=== PATIENT | female | born 1965 | race Caucasian/White ===

== ENCOUNTER 2020-03-30 15:46 | Outpatient (CLI) | payer OTHER, SELFPAY ==
--- NOTE | ~2020-03-30 | XR_ITS ---
EXAMINATION: XR knee LT 3V DATE: 03/30/2020 16:52 INDICATION: Left knee pain post fall on stairs TECHNIQUE: Anteroposterior, lateral and sunrise views of the left knee were obtained COMPARISON: None. FINDINGS: Alignment is normal. No fracture. Spaces appear normal. No joint effusion/layering lipohemarthrosis. Small enthesophyte at the patellar insertion of the distal quadriceps tendon. Soft tissues are unrem arkable. IMPRESSION: 1. No left knee joint effusion or acute osseous abnormality. Reviewed, dictated and finalized at location A.
--- NOTE | ~2020-03-30 | CT_ITS ---
EXAMINATION: CT brain wo con INDICATION: Head injury COMPARISON: 04/02/2017 TECHNIQUE: Standard unenhanced head CT. The dose-length product (DLP) was 605.33 mGy-cm. The mA was a djusted according to patient size. Iterative reconstruction technique was employed. FINDINGS: There is no intracranial hemorrhage, acute infarction, or abnormal mass lesion. The ventric les are normal. There is no abnormal mass effect or midline shift. The agarwal-white matter differentiat ion is normal. The basal cisterns are patent. The orbits are normal. There is deformity and partial o pacification of the right maxillary sinus. IMPRESSION: 1. No acute intracranial abnormality. Reviewed, dictated and finalized at location A.
--- NOTE | ~2020-03-30 | XR_ITS ---
EXAMINATION:XR cervical spine 4-5V, XR lumbar spine 2-3V, XR thoracic spine 3V DATE: 03/30/2020 16:52 EXAMINATION: XR cervical spine 4-5V, XR lumbar spine 2-3V, XR thoracic spine 3V DATE: 03/30/2020 16:52 INDICATION: Neck pain TECHNIQUE: 1. AP, lateral, lateral swimmers and odontoid views of the cervical spine were obtained. 2. AP, lateral and lateral swimmers views of the thoracic spine were obtained. 3. AP, lateral and coned-down lateral lumbosacral views of the lumbar spine were obtained. COMPARISON: None FINDINGS: Cervical spine: Alignment is normal. Dens is intact. Vertebral body heights are normal. Disc spaces are normal. No fr acture identified. Multilevel moderate cervical facet osteoarthritis most prominent at C2-C3, C3-C4 a nd C7-T1. Prevertebral soft tissues are normal. Thoracic spine: Alignment is normal. Vertebral body heights are normal. Multilevel mild to moderate disc height loss with small endplate osteophytes throughout the thoracic spine. No fracture identified. Paravertebral soft tissues and visualized lungs are unremarkable. Post cystectomy clips in the right upper quadrant . Lumbar spine: 3 mm anterolisthesis L5 on S1. Alignment is otherwise normal. Vertebral body heights are normal. Disc heights are normal with minimal degenerative endplate changes. And mild to moderate lower lumbar fac et osteoarthritis. No fracture identified. Sacrum and bilateral sacroiliac joints are unremarkable. M ild bilateral hip osteoarthritis. IMPRESSION: 1. Mild to moderate cervical, thoracic and lumbar spondylosis. No evident acute osseous abnormality. Reviewed, dictated and finalized at location A. IMPRESSION: 1. Mild to moderate cervical, thoracic and lumbar spondylosis. No evident acute osseous abnormality. IMPRESSION: 1. Mild to moderate cervical, thoracic and lumbar spondylosis. No evident acute osseous abnormality.
--- NOTE | ~2020-03-30 | XR_ITS ---
EXAMINATION: XR knee RT 3V DATE: 03/30/2020 16:52 INDICATION: Right knee pain post fall on stairs TECHNIQUE: AP, lateral and sunrise views of the right knee were obtained COMPARISON: None. FINDINGS: Alignment is normal. No fracture. Joint spaces appear normal. No joint effusion/layering lipohemarth rosis. Small enthesophyte at the patellar insertion of the distal quadriceps tendon. Soft tissues are unremarkable. IMPRESSION: 1. No right knee joint effusion or acute osseous abnormality. Reviewed, dictated and finalized at location A.
--- NOTE | ~2020-03-30 | XR_ITS ---
EXAMINATION: XR shoulder LT min 2V DATE: 03/30/2020 16:51 INDICATION: Left shoulder pain post fall on stairs TECHNIQUE: AP internally and externally rotated, AP oblique externally rotated and transscapular Y vi ews of the left shoulder were obtained. COMPARISON: None FINDINGS: Normal alignment. No fracture. Glenohumeral joint is normal. Acromioclavicular joint is normal. Smal l dystrophic calcification in the soft tissues near the superior facet of the greater tuberosity cons istent with supraspinatus calcific tendinitis. Soft tissues are otherwise unremarkable. Calcified nod ule in the left lung consistent with old granulomatous disease. IMPRESSION: 1. No acute osseous abnormality at the left shoulder. 2. Likely supraspinatus calcific tendinitis. Reviewed, dictated and finalized at location A.
== END 2020-03-30 15:47 | disposition home or self-care (01) ==
PROVIDERS: PCP Family Medicine; Visit Provider Physician Assistant
DX: G44.311 Acute post-traumatic headache, intractable (principal); M47.892 Other spondylosis, cervical region; M47.894 Other spondylosis, thoracic region; M47.896 Other spondylosis, lumbar region; W10.8XXA Fall (on) (from) other stairs and steps, initial encounter
CPT/HCPCS: 70450; 72050; 72072; 72100; 73030; 73562

== ENCOUNTER 2020-09-27 14:08 | Outpatient (CLI) | payer OTHER, SELFPAY ==
--- NOTE | 2020-09-27 14:27 | ECG_ITS ---
Measurements Intervals [place] Rate: 78 P: 61 [place]: 157 QRS: 58 QRSD: 89 T: 56 QT: 390 QTc: 445 Interpretive Statements SINUS RHYTHM POSSIBLE LEFT ATRIAL ENLARGEMENT BORDERLINE ECG Electronically Signed On 09-27-2020 14:44:25 HOUSING ASSISTANT by Hugo Campbell D.O.
== END 2020-09-27 14:09 | disposition home or self-care (01) ==
PROVIDERS: PCP Family Medicine; Visit Provider Family Medicine
DX: R00.2 Palpitations (principal); R94.31 Abnormal electrocardiogram [ECG] [EKG]
CPT/HCPCS: 93005

== ENCOUNTER → 2020-10-13 13:42 | Outpatient (CLI) | payer OTHER, SELFPAY ==
--- NOTE | ~2020-10-13 | CT_ITS ---
EXAMINATION: CT abdomen pelvis wo/w con DATE: 10/13/2020 14:38 INDICATION: Unspecified abdominal pain TECHNIQUE: Computed tomography (CT) of the abdomen and pelvis was performed without intravenous contr ast. CT of the abdomen and pelvis was then performed with a total of 130 mL Omnipaque 350 intravenous contrast using a double-bolus technique for simultaneous opacification of the renal parenchyma and r enal collecting system. The dose-length product (DLP) was 1302.51 mGy-cm. Automated exposure control and iterative reconstruction technique were employed. COMPARISON: None FINDINGS: Minimal dependent atelectasis is present in the lung bases. The heart size is normal. The g allbladder is surgically absent. The liver is diffusely low in attenuation when compared with the spl een, consistent with hepatic steatosis. The spleen, pancreas, and adrenal glands are normal. There is a 4.3 cm cyst of the left kidney. No suspicious renal or urothelial lesion is identified. No stones are identified in the kidneys, ureters, or bladder. There is no hydronephrosis or hydroureter. No pat hologically enlarged abdominal or pelvic lymph nodes are identified. There is calcified atheroscleros is of the aorta and many of the other arteries. There is no free intraperitoneal gas or evidence of b owel obstruction. There is a questionable stricture of the proximal ascending colon located approxima tely 5 cm above the ileocecal valve. The appendix is normal. There are bilateral L5 pars defects with grade 1 anterolisthesis of L5 on S1. IMPRESSION: 1. Possible stricture of the proximal ascending colon. Recommend correlation with colonoscopy or colo noscopy history. 2. No urolithiasis, suspicious urothelial or renal lesion, hydronephrosis, or hydroureter. Reviewed, dictated and finalized at location A. MANAGER IMPRESSION: 1. Possible stricture of the proximal ascending colon. Recommend correlation wi colonoscopy or colonoscopy history. 2. No urolithiasis, suspicious urothelial or renal lesion, hydronephrosis, or h ydroureter.
[2020-10-13 14:10] LABS: Estimated Glomerular Filt Rate > 60
== END ==
PROVIDERS: PCP Family Medicine; Visit Provider Family Medicine
DX: R10.9 Unspecified abdominal pain (principal); N28.1 Cyst of kidney, acquired; Z90.49 Acquired absence of other specified parts of digestive tract
CPT/HCPCS: 74178; Q9967

== ENCOUNTER 2020-11-05 00:33 | Outpatient (CLI) | payer OTHER, SELFPAY ==
[2020-11-05 17:38] LABS: SARS-CoV-2 RNA PCR Negative
== END 2020-11-05 00:34 | disposition home or self-care (01) ==
LOC: ANHCOVIDDT 00:33
PROVIDERS: PCP Family Medicine; Visit Provider Internal Medicine Gastroenterology
DX: Z01.812 Encounter for preprocedural laboratory examination (principal); Z20.822 Contact with and (suspected) exposure to COVID-19
CPT/HCPCS: C9803; U0003; U0005

== ENCOUNTER 2020-11-08 02:05 | Day surgery (SDC) | payer OTHER, SELFPAY ==
[2020-11-01 09:47] VITALS: BMI 27.3
[2020-11-08 09:18] VITALS: BP 112/72; PULSE 105; RESP 20; TEMP 36.2; O2SAT 99; BMI 25.7
--- NOTE | 2020-11-08 09:23 | WPDANESEPPF ---
Anes - Initial Pre Proc Eval Procedure: Operation Date: 11/08/20 10:30 Proposed Procedures p Colonoscopy - Eleazar Angel MD Date/Time: 11/08/20 09:23 Surgeon: Eleazar Angel MD Pre Op Diagnosis: Abdominal Pain Patient Data Age: 55 Gender: F Height: 1.6 m Weight: 65.9 kg Last Vital Signs Temp 36.2 C L 11/08/20 09:18 Pulse 105 H 11/08/20 09:18 Resp 20 11/08/20 09:18 BP 112/72 11/08/20 09:18 Pulse Ox 99 11/08/20 09:18 Allergies Allergy/AdvReac Type Severity Reaction Status Date / Time aspirin AdvReac Nausea and Verified 11/08/20 09:16 Vomiting Home Medications Medication Instructions Recorded Confirmed Type semaglutide 0.5 mg SUB-Q WEEKLY ml 12/22/19 11/08/20 History Patient hx anesthesia problems: none Family hx anesthesia problems: none PMFSH Past Medical History Medical History (Reviewed 11/01/20 @ 09:08 by Annie Elizabeth [facility]) Abdominal pain Acute non-recurrent maxillary sinusitis Chronic rhinitis Controlled diabetes mellitus type II without complication Diabetes Dyshidrotic eczema Encounter for screening for other viral diseases Exposure to COVID-19 virus Fatty liver (~10/13/20) Headache High cholesterol IBS (irritable bowel syndrome) Irritable bowel syndrome with constipation Mixed hyperlipidemia Obstructive sleep apnea of adult Palpitation Stricture of ascending colon (~10/13/20) Ureteral stone Surgical History Surgical History History of 2 sections 1995, 2000 History of cholecystectomy Family History Family History Mother Diabetes mellitus Other Acute myocardial infarction High cholesterol Father Acute myocardial infarction Grandparent Diabetes mellitus Grandparent Lung disease Social History Social History (Reviewed 11/01/20 @ 09:08 by Annie Elizabeth [facility]) Smoking packs per day: 0.5 Smoking cigarettes per day: 10.0 Years smoked: 20 Smoking pack-years: 10.00 Smoking status: Former smoker Tobacco type: cigarettes Smoking end date: 10/19/19 Alcohol intake: current Substance use: never Substance use type: does not use Living arrangements: with family Austin Julien Final PreProcedure Day of Procedure 11/08/20 09:23 Patient weight: overweight Heart: regular rate and rhythm Lungs: clear to auscultation and normal air movement Airway: Mallampati scale class II Neurological: alert and oriented Last oral intake: >/= 8 hours ASA classification: III Emergent: no Anesthetic plan: proceed Anesthesia type and monitoring: general GIVS and standard monitoring Informed Consent: The patient's anesthetic plan and its attendant risks and benefits were discussed with the patient/family/POA. Questions were solicited and answers provided to the satisfaction of the patient/family/POA.
[2020-11-08] MEDS: LACTATED RINGERS 1,000 ML 150 ML IV CONT (09:33)
[2020-11-08 09:37] LABS: Glucose Point of Care 150 (65-105)
--- NOTE | 2020-11-08 10:08 | WPDHPUPDATE1 ---
History and Physical Update Update Date/Time: 11/08/20 10:08 History and Physical has been reviewed, including an updated exam of the patient. There are NO changes in the patient's condition. Risks, benefits, and alternatives have been discussed and questions answered. Patient agrees to proceed with procedure.
[2020-11-08 10:30] VITALS: BP 113/75; PULSE 93; RESP 20; O2SAT 97
[2020-11-08 10:40] VITALS: BP 113/70; PULSE 90; RESP 16; O2SAT 99
[2020-11-08 10:50] VITALS: BP 123/72; PULSE 94; RESP 17; O2SAT 100
== END 2020-11-08 11:07 | disposition home or self-care (01) ==
PROVIDERS: PCP Family Medicine; Visit Provider Internal Medicine Gastroenterology
PROC: 0DJD8ZZ Inspection of Lower Intestinal Tract, Via Natural or Artificial Opening Endoscopic (ICD-10-PCS; CPT 45378; principal; 2020-11-08 10:30)
DX: R10.30 Lower abdominal pain, unspecified (principal); R19.7 Diarrhea, unspecified; K59.00 Constipation, unspecified; K57.30 Diverticulosis of large intestine without perforation or abscess without bleeding; K64.8 Other hemorrhoids; E11.9 Type 2 diabetes mellitus without complications; E78.2 Mixed hyperlipidemia; L30.1 Dyshidrosis [pompholyx]; K76.0 Fatty (change of) liver, not elsewhere classified; E78.00 Pure hypercholesterolemia, unspecified; K58.9 Irritable bowel syndrome, unspecified; G47.33 Obstructive sleep apnea (adult) (pediatric); Z87.891 Personal history of nicotine dependence
CPT/HCPCS: 45380; 88305; C9803; J2704; J7120; U0003; U0005

== ENCOUNTER → 2020-12-07 11:32 | Outpatient (CLI) | payer OTHER, SELFPAY ==
--- NOTE | ~2020-12-07 | MM_ITS ---
EXAMINATION: MM screening [facility] BI w [place] HISTORY: Screening mammogram TECHNIQUE: Craniocaudal and mediolateral oblique 3-D tomosynthesis images were obtained and synthetic 2-D images were generated. CAD analysis was submitted and interpreted. COMPARISON: 08/26/2019, 08/23/2018, 01/23/2017 BREAST PARENCHYMAL COMPOSITION: The breasts are heterogeneously dense, which may obscure small masses . FINDINGS: There is no evidence of suspicious mass, calcification, or architectural distortion to sugg est malignancy in either breast. There has been no suspicious interval change. IMPRESSION: 1. No mammographic evidence of malignancy. 2. Recommend routine screening mammography in one year. BI-RADS Category 1: Negative Reviewed, dictated and finalized at location A. [address]
== END ==
PROVIDERS: PCP Family Medicine; Visit Provider Family Medicine
DX: Z12.31 Encounter for screening mammogram for malignant neoplasm of breast (principal)
CPT/HCPCS: 77063; 77067

== ENCOUNTER 2021-12-06 12:27 | Emergency (ER) | payer OTHER, SELFPAY ==
--- NOTE | ~2021-12-06 | CT_ITS ---
EXAMINATION: CT abdomen pelvis wo con EXAM DATE: 12/06/2021 13:58 INDICATION: Left flank pain. TECHNIQUE: Spiral CT of the abdomen and pelvis was performed without contrast. Axial, coronal and sag ittal images were reviewed. The dose-length product (DLP) for this examination was 176.06 mGy-cm. T he exposure was tailored according to patient size (auto mA exposure control), and iterative reconstr uction (ASIR) was used as additional dose reduction technique. Comparison is made to prior examinatio n from 10/13/2020. FINDINGS: There is a left UPJ 3 mm stone, mild left-sided obstructive nephropathy. No other ureteral stones. The uterus is unremarkable. The bladder is unremarkable. The liver, spleen, adrenal gland s and pancreas are unremarkable. There are cholecystectomy clips. There is no retroperitoneal or pe lvic lymphadenopathy. The appendix is normal. There is mild scattered colonic diverticulosis. There is no adjacent inflamm atory change to suggest diverticulitis. The stomach and small bowel are unremarkable. There is expec charissa amount of colonic stool. No free intraperitoneal gas. The heart is normal in size. There are no pericardial or pleural effusions. The lung bases are unremarkable. There are no osteoblastic or osteolytic lesions identified. Chronic bilateral L5 spondylolysis with 3 mm anterolisthesis L5 on S1 . IMPRESSION: 1. Left UPJ 3 mm stone, mild obstructive nephropathy. Recommend KUB. 2. Mild colonic diverticulosis. 3. L5 spondylolysis. Reviewed, dictated and finalized at location A. TER ASSISTANT
[2021-12-06 13:17] VITALS: BP 154/98; PULSE 89; RESP 19; TEMP 36.1; O2SAT 100
--- NOTE | 2021-12-06 13:45 | ED.GENADULT ---
HPI - General Adult General Chief complaint: Nausea/Vomiting/Diarrhea Stated complaint: Possible Kidney Stone Time Seen by Provider: 12/06/21 13:36 Source: patient Mode of arrival: ambulatory Limitations: no limitations History of Present Illness HPI narrative: 56-year-old female presents with left flank pain, nausea and vomiting since approximately noon today. Patient states she woke up with no symptoms and symptoms came on suddenly. Patient has a history of kidney stones. Patient denies any urinary symptoms, fevers or abdominal pain. Patient denies any other symptoms Onset (ago): hour(s) Location: back (Left flank) Radiation: non-radiation Severity scale (1-10): 10 Related Data Home Medications Medication Instructions Recorded Confirmed semaglutide 0.5 mg SUB-Q WEEKLY ml 12/22/19 12/07/20 polyethylene glycol 3350 17 17 g PO DAILY 12/07/20 12/07/20 gram/dose oral powder Allergies Allergy/AdvReac Type Severity Reaction Status Date / Time aspirin AdvReac Nausea and Verified 12/07/20 13:11 Vomiting Review of Systems Review of Systems: All systems reviewed & are unremarkable except as noted in HPI and below Constitutional: Constitutional: Reports no additional constitutional complaints Eyes: Eyes: Reports no additional eye complaints ENT: Reports system reviewed and no additional complaints, except as documented Cardiovascular: Cardiovascular: Reports no additional cardiovascular complaints Respiratory: Respiratory: Reports no additional respiratory complaints Gastrointestinal: Gastrointestinal: Reports nausea and Reports vomiting Genitourinary: Genitourinary: Reports flank pain (Left) Musculoskeletal: Musculoskeletal: Reports no additional musculoskeletal complaints Integumentary/Breasts: Skin/Breast: Reports system reviewed and no additional complaints, except as docu Neurologic: Reports system reviewed and no additional complaints, except as documented Psychiatric: Psychiatric: Reports no additional psychiatric complaints Endocrine: Endocrine: Reports no additional endocrine complaints Hematologic/Lymphatic: Hematologic/Lymphatic: Reports no additional hematologic/lymphatic complaints Allergic/Immunologic: Allergic/Immunologic: Reports no additional allergic/immunologic complaints PMFSH Past Medical History Medical History (Updated 12/06/21 @ 14:29 by Joey Calixto APRN) Abdominal pain Acute non-recurrent maxillary sinusitis Chronic rhinitis Controlled diabetes mellitus type II without complication Diabetes Diverticulosis otherwise normal colonoscopy 11/08/2020 Dyshidrotic eczema Encounter for screening for other viral diseases Exposure to COVID-19 virus Fatty liver (~10/13/20) Headache High cholesterol IBS (irritable bowel syndrome) Irritable bowel syndrome with constipation Mixed hyperlipidemia Obstructive sleep apnea of adult Palpitation Stricture of ascending colon (~10/13/20) no stricture on colonoscopy 11/08/2020 Ureteral stone Surgical History Surgical History History of 2 sections 1995, 2000 History of cholecystectomy Family History Family History Mother Diabetes mellitus Other Acute myocardial infarction High cholesterol Father Acute myocardial infarction Grandparent Diabetes mellitus Grandparent Lung disease Social History Social History Smoking packs per day: 0.5 Smoking cigarettes per day: 10.0 Years smoked: 20 Smoking pack-years: 10.00 Smoking status: Former smoker Tobacco type: cigarettes Smoking end date: 10/19/19 Alcohol intake: current Alcohol use details: beer once a month Substance use: never Substance use type: does not use Exam Narrative: General appearance: Well-developed, well-nourished Skin: Normal color Head: Normocephalic
[2021-12-06] MEDS: ONDANSETRON INJ 4 MG/2 ML VIAL IV PUSH (13:49)
[2021-12-06] MEDS: KETOROLAC 30 MG/ML VIAL (*BKC) IV PUSH (13:49)
[2021-12-06] MEDS: SODIUM CHLORIDE 0.9% IV 1,000 ML 999 ML IV CONT (13:50)
[2021-12-06 13:57] LABS: Basophils Absolute Auto 0.1 K/mm3 (0.0-0.1); Basophils Percent Auto 0.9 % (0.2-1.2); Eosinophils Absolute Auto 0.1 K/mm3 (0-0.3); Eosinophils Percent Auto 0.5 % (0-4.4); Hematocrit 40.7 % (37.0-47.0); Hemoglobin 13.1 g/dL (12.0-15.0); Immature Granulocyte Absolute 0.13 K/mm3 (0.00-0.031); Lymphocytes Percent Auto 19.2 % (18.3-44.2); Mean Corpuscular HGB Conc 32.2 g/dl (32-36); Mean Corpuscular Volume 83.7 fl (80-100); Mean Platelet Volume 10.1 fl (7.4-10.4); Monocytes Absolute Auto 0.6 K/mm3 (0.1-0.6); Monocytes Percent Auto 4.7 % (2.6-8.5); Neutrophils Absolute Auto 9.2 K/mm3 (1.3-6.7); Neutrophils Percent Auto 73.7 % (45.5-73.1); Platelet Count Result 358 k/mm3 (150-375); Red Blood Count 4.86 M/mm3 (4.2-5.4); Red Cell Distribution Width 14.1 % (11.5-14.5); White Blood Count 12.5 K/mm3 (4.5-10.0)
[2021-12-06 14:09] LABS: Alanine Aminotransferase 30 U/L (4-35); Albumin Level 4.9 g/dL (3.5-5.1); Alkaline Phosphatase 106 U/L (38-126); Anion Gap 13 mmol/L (8-16); Aspartate Amino Transferase 31 U/L (14-36); Bilirubin,Total 0.5 mg/dL (0.2-1.3); Blood Urea Nitrogen 18 mg/dL (7-17); Calcium 9.5 mg/dL (8.4-10.2); Carbon Dioxide 21 mmol/L (22-30); Chloride 105 mmol/L (98-107); Estimated Glomerular Filt Rate > 60; Glucose 196 mg/dL (65-110); Potassium 3.7 mmol/L (3.4-5.0); Sodium 139 mmol/L (137-145)
[2021-12-06 14:15] LABS: Add Urine Microscopic? YES; Appearance Urine Clear (Clear); Bilirubin Urine Negative (Negative); Blood Urine 2+ (Negative); Color Urine Yellow (Yellow); Glucose Urine UA 1+ mg/dL (Negative); Ketones Urine Negative (Negative); Leukocyte Esterase Ur Negative LEU/UL (Negative); Mucus Urine Rare /lpf; Nitrate Urine Negative (Negative); Protein Urine 2+ mg/dL (Negative); RBC Urine >75 /hpf (0-2); Squamous Epithelial Cell Urine Occasional /hpf (Few); Urobilinogen Urine Negative mg/dL (<2.0)
[2021-12-06 14:51] VITALS: BP 122/75; PULSE 89; RESP 18; O2SAT 99
--- NOTE | 2021-12-15 08:16 | PC.NURSE ---
LATE ENTRY This note is being entered to document information to the patient's record. The following information was omitted on 12/15/21], by [Yoan MCDONALD stopped at 1443 on 12/06/21]./
== END 2021-12-06 14:54 | disposition home or self-care (01) ==
PROVIDERS: Emergency Provider Nurse Practitioner Family; PCP Family Medicine
DX: N13.8 Other obstructive and reflux uropathy (principal); N20.1 Calculus of ureter; E11.9 Type 2 diabetes mellitus without complications; E78.00 Pure hypercholesterolemia, unspecified; E78.2 Mixed hyperlipidemia; K58.1 Irritable bowel syndrome with constipation; G47.33 Obstructive sleep apnea (adult) (pediatric); Z87.891 Personal history of nicotine dependence; Z87.442 Personal history of urinary calculi; M43.06 Spondylolysis, lumbar region; K57.90 Diverticulosis of intestine, part unspecified, without perforation or abscess without bleeding; Z79.899 Other long term (current) drug therapy
CPT/HCPCS: 36415; 74176; 80053; 81001; 85025; 96361; 96374; 96375; 99284; J1885; J2405; J7030

== ENCOUNTER 2021-12-27 12:56 | Outpatient (CLI) | payer OTHER, SELFPAY ==
--- NOTE | ~2021-12-27 | CT_ITS ---
EXAMINATION: CT abdomen pelvis wo con DATE: 12/27/2021 17:24 INDICATION: Ureteral calculus. TECHNIQUE: Computed tomography (CT) of the abdomen and pelvis was performed without intravenous contr ast. Automated exposure control and iterative reconstruction technique were employed. Exam dose: 180 .08 mGy-cm total exam DLP. COMPARISON: December 06, 2021 CT abdomen pelvis noncontrast examination 10/13/2020 CT abdomen pelvis without and with IV contrast material FINDINGS: The lung bases are clear. Normal heart size. No pericardial or pleural effusion. Status post cholecystectomy. No bile duct or pancreatic duct dilatation. No hepatic or pancreatic space-occupying mass lesion. Nor mal splenic size. Normal morphology of the adrenal glands. Stable slightly greater than 4 cm left renal cyst. Previously reported 3 mm calculus noted in the proximal left ureter on December 06, 2021 is currently situated at the left ureterovesical junction, without hydroureteronephrosis. No other urinary tract calculus or hydronephrosis. The urinary bladder, uterus and adnexal areas are unremarkable. Diverticulosis of left colon; no CT evidence of diverticulitis. No bowel obstruction or intraperitone al free air. Normal caliber of the abdominal aorta. No intraperitoneal or retroperitoneal or pelvic mass lesion or adenopathy or ascites. Bilateral L5 pars intra-articular is defects with minimal grade 1 anterolisthesis at L5-S1. Prominent degenerative spurring of the thoracic spine. Bilateral hip osteoarthritis. IMPRESSION: 3 mm left ureter vesicle junction calculus, without hydroureteronephrosis Stable left renal cyst Diverticulosis of the left colon; no evidence of diverticulitis Status post cholecystectomy Bilateral L5 pars interarticularis defects with minimal grade 1 anterolisthesis at L5-S1 Reviewed, dictated and finalized at Location A. Reviewed, dictated and finalized at location A. IMPRESSION: 3 mm left ureter vesicle junction calculus, without hydroureterone phrosis Stable left renal cyst Diverticulosis of the left colon; no evidence of diverticulitis Status post cholecystectomy Bilateral L5 pars interarticularis defects with minimal grade 1 anterolisthesis at L5-S1
[2021-12-27 14:03] LABS: Add Urine Microscopic? YES; Appearance Urine Cloudy (Clear); Bilirubin Urine Negative (Negative); Blood Urine 2+ (Negative); Calcium Oxalate Crystals Urine Present /hpf; Color Urine Yellow (Yellow); Glucose Urine UA Negative (Negative); Ketones Urine Negative (Negative); Leukocyte Esterase Ur Negative LEU/UL (NEGATIVE); Mucus Urine Rare /lpf; Nitrate Urine Negative (Negative); Protein Urine Negative (Negative); RBC Urine >75 /hpf (0-2); Specific Grav Ur 1.019 (1.001-1.035); Squamous Epithelial Cell Urine Occasional /hpf (Few); Urobilinogen Urine Negative mg/dL (<2.0)
== END 2021-12-27 12:57 | disposition home or self-care (01) ==
LOC: ANHLAB 17:06 → ANHIMG 17:09
PROVIDERS: PCP Family Medicine; Visit Provider Family Medicine
DX: N20.1 Calculus of ureter (principal); N28.1 Cyst of kidney, acquired; Z90.49 Acquired absence of other specified parts of digestive tract; K57.30 Diverticulosis of large intestine without perforation or abscess without bleeding; M16.0 Bilateral primary osteoarthritis of hip
CPT/HCPCS: 74176; 81001; 87086

== ENCOUNTER 2022-01-04 15:44 | Outpatient (CLI) | payer OTHER, SELFPAY ==
--- NOTE | ~2022-01-04 | XR_ITS ---
XR abdomen/kub 1V 01/04/2022 16:02 INDICATION: Left ureteral stone TECHNIQUE: KUB COMPARISON: 12/27/2021 FINDINGS: Bowel gas pattern is normal. Moderate colonic fecal loading. There is no evidence of free a ir, mass, organomegaly, ascites or obstruction. There is a calcification in the left pelvis which may represent a bladder stone or UVJ stone. The bones appear intact. IMPRESSION: 1: Calcification in the left pelvis may represent a bladder or UVJ stone. Reviewed, dictated and finalized at location A.
== END 2022-01-04 15:45 | disposition home or self-care (01) ==
PROVIDERS: PCP Family Medicine; Visit Provider Nurse Practitioner Adult Health
DX: N20.1 Calculus of ureter (principal)
CPT/HCPCS: 74018

== ENCOUNTER 2022-01-06 17:41 | Outpatient (CLI) | payer OTHER, SELFPAY ==
--- NOTE | ~2022-01-06 | XR_ITS ---
EXAMINATION: XR abdomen/kub 1V EXAM DATE: 01/06/2022 17:56 INDICATION: Left Ureteral Stone, passed stone today;sched for surg 01/10. TECHNIQUE: Frontal projection of the upper abdomen, frontal projection lower abdomen/pelvis for inter pretation. Compared to KUB 01/04/2022, abdomen pelvis CT 12/27/21. FINDINGS: Again there is 3 mm calcification the left aspect of the pelvis, position appears not signi ficantly changed. Uncertain whether or not this is a phlebolith, bladder or ureteral stone. If patien t is having CT scan prior to scheduled surgery, consider requesting prone positioning. There are chol ecystectomy clips. Accounting for differences in technique, there is no significant interval change. There is moderate symmetric bilateral hip primary osteoarthritis. IMPRESSION: Persistent 3 mm left pelvic calcification. Reviewed, dictated and finalized at location .
== END 2022-01-06 17:42 | disposition home or self-care (01) ==
LOC: ANHIMG 17:43
PROVIDERS: PCP Family Medicine; Visit Provider Nurse Practitioner Adult Health
DX: N20.1 Calculus of ureter (principal)
CPT/HCPCS: 74018

== ENCOUNTER 2022-01-12 13:00 | Outpatient (CLI) | payer OTHER, SELFPAY ==
--- NOTE | ~2022-01-12 | XR_ITS ---
EXAMINATION: XR abdomen/kub 1V DATE: 01/12/2022 13:29 INDICATION: Left ureteral stone. TECHNIQUE: A supine view of the abdomen on 2 radiographs was obtained. COMPARISON: CT abdomen and pelvis 01/12/2022 FINDINGS: There is a phlebolith in left pelvis. There are no dilated loops of bowel. Surgical clips i n the right upper quadrant are likely from cholecystectomy. IMPRESSION: 1. No urolithiasis. Reviewed, dictated and finalized at location A. IMPRESSION: 1. No urolithiasis.
--- NOTE | ~2022-01-12 | CT_ITS ---
EXAMINATION: CT abdomen pelvis wo con DATE: 01/12/2022 13:30 INDICATION: Left ureteral stone. TECHNIQUE: Computed tomography (CT) of the abdomen and pelvis was performed without intravenous contr ast. Automated exposure control and iterative reconstruction technique were employed. The dose-length product was 182.44 mGy-cm. COMPARISON: CT abdomen and pelvis 12/27/2021 FINDINGS: The visualized portions of the lung bases demonstrate mild atelectasis. Calcified left lung nodules are consistent with old granulomatous disease. No pleural effusion. The heart size is normal . No pericardial effusion. There is diffuse hepatic steatosis. Calcifications in the liver consistent with old granulomatous disease. There are changes of cholecystectomy. The spleen, pancreas, adrenal glands, and right kidney are normal. There are cysts in left kidney measuring up to 4.1 cm. There is no urolithiasis. There are no dilated loops of bowel. There is diverticulosis of the colon without ev idence of diverticulitis. The appendix is normal. There are no pathologically enlarged lymph nodes. T here is no free intraperitoneal fluid. There are chronic bilateral L5 pars defects. There is 4 mm ant erolisthesis of L5 on S1. IMPRESSION: 1. No urolithiasis. Reviewed, dictated and finalized at location A. IMPRESSION: 1. No urolithiasis.
== END 2022-01-12 13:01 | disposition home or self-care (01) ==
PROVIDERS: PCP Family Medicine; Visit Provider Nurse Practitioner Adult Health
DX: N20.1 Calculus of ureter (principal); N28.1 Cyst of kidney, acquired
CPT/HCPCS: 74018; 74176

== ENCOUNTER 2022-04-22 10:19 | Outpatient (CLI) | payer OTHER, SELFPAY ==
--- NOTE | ~2022-04-22 | MM_ITS ---
EXAMINATION: MM screening [facility] BI w [place] HISTORY: Screening mammogram TECHNIQUE: Craniocaudal and mediolateral oblique 3-D tomosynthesis images were obtained and synthetic 2-D images were generated. CAD analysis was submitted and interpreted. COMPARISON: 12/07/2020, 08/26/2019, 08/23/2018 BREAST PARENCHYMAL COMPOSITION: The breasts are heterogeneously dense, which may obscure small masses . FINDINGS: There is no suspicious mass, calcification, or architectural distortion to suggest malignan cy in either breast. There has been no suspicious interval change. IMPRESSION: 1. No mammographic evidence of malignancy. 2. Recommend routine screening mammography in one year. BI-RADS Category 1: Negative Reviewed, dictated and finalized at location A.
== END 2022-04-22 10:20 | disposition home or self-care (01) ==
PROVIDERS: PCP Family Medicine; Visit Provider Family Medicine
DX: Z12.31 Encounter for screening mammogram for malignant neoplasm of breast (principal)
CPT/HCPCS: 77063; 77067

== ENCOUNTER 2023-07-28 09:39 | Outpatient (CLI) | payer OTHER, SELFPAY ==
--- NOTE | ~2023-07-28 | MM_ITS ---
EXAMINATION: MM screening [facility] w [facility] HISTORY: Screening mammogram TECHNIQUE: Craniocaudal and mediolateral oblique 3-D tomosynthesis images were obtained and synthetic 2-D images were generated. CAD analysis was submitted and interpreted. COMPARISON: 04/22/2022, 12/07/2020, 08/26/2019 bilateral screening mammogram examinations BREAST PARENCHYMAL COMPOSITION: The breasts are heterogeneously dense, which may obscure small masses . FINDINGS: There is no evidence of suspicious mass, calcification, or architectural distortion to sugg est malignancy in either breast. There has been no suspicious interval change. IMPRESSION: 1. No mammographic evidence of malignancy. 2. Recommend routine screening mammography in one year. BI-RADS Category 1: Negative Reviewed, dictated and finalized at location B.
== END 2023-07-28 09:40 | disposition home or self-care (01) ==
PROVIDERS: PCP Family Medicine; Visit Provider Family Medicine
DX: Z12.31 Encounter for screening mammogram for malignant neoplasm of breast (principal)
CPT/HCPCS: 77063; 77067

== ENCOUNTER 2024-08-06 13:00 | Outpatient (CLI) | payer OTHER, SELFPAY ==
--- NOTE | ~2024-08-06 | CT_ITS ---
EXAMINATION: CT lumbar spine wo con DATE: 08/06/2024 13:52 INDICATION: Chronic midline low back pain. TECHNIQUE: Computed tomography (CT) of the lumbar spine was performed without intravenous contrast. A utomated exposure control and iterative reconstruction technique were employed. The dose-length produ ct was 473.78 mGy-cm. COMPARISON: None FINDINGS: There are cysts in left kidney measuring up to 4.0 cm. There are changes of cholecystectomy . There are chronic bilateral L5 pars defects. There is 4 mm anterolisthesis of L5 on S1. Vertebral b payal heights are normal. Intervertebral disc heights are normal. The following disc levels are specifi ari discussed: L1-L2: The disc does not extend beyond the endplate margin. There is mild bilateral facet joint osteo arthritis. There is no neural foraminal stenosis. There is no central canal stenosis. L2-L3: The disc does not extend beyond the endplate margin. There is mild bilateral facet joint osteo arthritis. There is no neural foraminal stenosis. There is no central canal stenosis. L3-L4: The disc is bulging. There is severe right and mild left facet joint osteoarthritis. There is mild bilateral neural foraminal stenosis. There is mild central canal stenosis. L4-L5: The disc is bulging. There is moderate bilateral facet joint osteoarthritis. There is mild marni ateral neural foraminal stenosis. There is mild central canal stenosis. L5-S1: The disc is bulging. There is severe bilateral facet joint osteoarthritis. There is mild bilat eral neural foraminal stenosis. There is mild central canal stenosis. IMPRESSION: 1. Chronic bilateral L5 pars defects with grade 1 anterolisthesis of L5 on S1. 2. Mild lumbar spondylosis. Reviewed, dictated and finalized at location A.
== END 2024-08-06 13:01 | disposition home or self-care (01) ==
PROVIDERS: PCP Family Medicine; Visit Provider Family Medicine
DX: M47.896 Other spondylosis, lumbar region (principal)
CPT/HCPCS: 72131

== ENCOUNTER 2024-12-29 12:49 | Outpatient (CLI) | payer OTHER, SELFPAY ==
--- NOTE | ~2024-12-29 | MMUS_ITS ---
EXAMINATION: MM diagnostic kali BI w mercedez, US breast BI complete HISTORY: Axillary mass. TECHNIQUE: Additional 3-D tomosynthesis images of the breasts were performed and synthetic 2-D images were generated. CAD analysis was submitted and interpreted. High resolution complete bilateral breas t ultrasound was performed. COMPARISON: Comparison to multiple prior studies sequentially, with oldest reviewed study dated 02/02. BREAST PARENCHYMAL COMPOSITION: Dense: The breasts are heterogeneously dense, which may obscure small masses FINDINGS: MAMMOGRAPHIC FINDINGS: There is a small mass in the central aspect of the left breast, middle third, obscured by fibroglandu lar content with circumscribed margins. There is no evidence for malignancy in the right breast. ULTRASOUND: Complete US of all 4 quadrants of the breast/s and retroareolar region was reviewed. Right breast ultrasound: There is small cysts of the right breast, largest at 10:00, 3 cm from the ni pple measuring 8 mm. Left breast: There are multiple cysts of the left breast, largest measuring 12 mm at 3:00, 1 cm from the nipple. These cysts likely corresponds to the mammographic finding. There is an abnormal subcutan eous oval hypoechoic mass measuring 11 x 7 x 5 mm with posterior shadowing in the left axilla in the area palpable concern. There is internal vascularity. Cortex appears thickened, likely a reactive lym ph node. IMPRESSION: 1. Probable benign reactive lymph node of the left axilla in the area of palpable concern measuring 1 1 mm. 2. Recommend 6 month follow-up left axillary ultrasound. BI-RADS category 3, probably benign findings. Reviewed, dictated and finalized at location B. IMPRESSION: 1. Probable benign reactive lymph node of the left axilla in the area of palpab le concern measuring 11 mm. 2. Recommend 6 month follow-up left axillary ultrasound. BI-RADS category 3, probably benign findings.
--- OUTSIDE RECORDS SUMMARY | 2024-12-29 15:08 | XMS_ITS | Clinical Summary ---
Author Organization [facility] [employer] Address [address] [place] [address] Care Team Providers Care Fagoter Name Role Phone Unavailable Primary Care Provider Unavailabl e Source Comments [facility] [employer],non-owned Affiliates and Associated Physician Practices is amultiple site organization consisting of ambulatory clinics and hospital sitesin [place], [place], [place] and [place]. This disclosure is being madepursuant to the Care Everywhere program and may not contain all information available regarding this patient. Last updated 18.[facility] [employer] Allergies No known active allergies Medications * Be aware that medications may not be up to date on this document. Alwaysverify current medications with the patient. Medication Sig Dispensed Refills Start Date End Date Status METFORMIN HCL PO Active FENOFIBRATE PO Active Semaglutide (OZEMPIC SC) Active Social History Tobacco Use Types Packs/Day Years Used Date Smoking Tobacco: Never Assessed Sex and Gender Information Value Date Recorded Sex Assigned at Not on file Gender Identity Not on file Sexual Orientation Not on file Last Filed Vital Signs Vital Sign Reading Time Taken Comments Blood Pressure 124/80 05/01/2019 2:50 PM CDT Pulse 82 05/01/2019 2:50 PM CDT Temperature 36.9 C (98.4 F) 05/01/2019 2:50 PM CDT Respiratory Rate 16 05/01/2019 2:50 PM CDT Oxygen Saturation 98% 05/01/2019 2:50 PM CDT Inhaled Oxygen Concentration - - Weight 70.3 kg (155 lb) 05/01/2019 2:50 PM CDT Height 160 cm (5' 3 ) 05/01/2019 2:50 PM CDT Body Mass Index 27.46 05/01/2019 2:50 PM CDT Plan of Treatment Health Maintenance Due Date Last Done Comments COLOGUARD (AGES 45-75) - COL ON CA SCREENING 1964 COLON MONITORING 1964 COLONOSCOPY - COLON CA SCREENING 1964 CT COLONOGRAPHY - COLON CA SCREENING 1964 Colorectal Cancer Screening 1964 FIT - COLON CA SCREENING 1964 FLEX SIG - COLON CA SCREENING 1964 LIPID TESTING 1964 MAMMOGRAM 1964 PAP SMEAR 1964 HIV SCREENING 1979 HEPATITIS C SCREENING 08/06/1982 DTAP/TDAP/TD VACCINES (1 - Tdap) 1983 PNEUMOCOCCAL VACCINE 50+ (1 of 1 - PCV) 2014 ZOSTER VACCINE (1 of 2) 2014 SCREENING FOR DIABETES 05/01/2019 COVID-19 VACCINE (1 - 2023-2 5 season) 2024 INFLUENZA VACCINE (#1) 2024 DEPRESSION SCREENING 10/15/2024 Respiratory Syncytial Virus (RSV) Vaccine Pt: or over 60 yrs (1 - 1-dose 75+ series) 2039 HEPATITIS B VACCINE Aged Out No longe r eligible based on patient's age to complete this topic HIB VACCINE Aged Out No longer eligi ble based on patient's age to complete this topic HPV VACCINE Aged Out No longer eligi ble based on patient's age to complete this topic MENINGOCOCCAL (Group B) VACC INE SHARED DECISION-MAKING Aged Out No longer eligibl e based on patient's age to complete this topic MENINGOCOCCAL GROUPS A/C/Y/W VACCINE Aged Out No longer eligible b ased on patient's age to complete this topic PNEUMOCOCCAL VACCINE Aged Out No long er eligible based on patient's age to complete this topic
--- OUTSIDE RECORDS SUMMARY | 2024-12-29 15:08 | XMS_ITS | Referral Summary ---
Author Organization [facility] Address [address] [place] [address] Care Team Providers Care Bi Data Modeler Name Role Phone Unavailable Primary Care Provider Unavailabl e Source Comments [facility],non-owned Affiliates and Associated Physician Practices is amultiple site organization consisting of ambulatory clinics and hospital sitesin [place], [place], [place] and [place]. This disclosure is being madepursuant to the Care Everywhere program and may not contain all information available regarding this patient. Last updated 18.[facility] [employer] Allergies No known active allergies Medications * [...] 05/01/2019 2:50 PM CDT Plan of Treatment Not on file
--- OUTSIDE RECORDS SUMMARY | 2024-12-29 15:08 | XMS_ITS | Patient Health Summary ---
Author Organization [facility] Address [address] [place] [address] Care Team Providers Care Paper Roller Name Role Phone Unavailable Primary Care Provider Unavailabl e Note from [facility],non-owned Affiliates and Associated Physician Practices is amultiple site organization consisting of ambulatory clinics and hospital sitesin [place], [place], [place] and [place]. This disclosure is being madepursuant to the Care Everywhere program and may not contain all information available regarding this patient. Last updated 18.[facility] [employer] Allergies No known active allergies Medications * Be aware that medications may not be up to date on this document. Alwaysverify current medications with the patient. * METFORMIN HCL PO * FENOFIBRATE PO * Semaglutide (OZEMPIC SC) Social History Tobacco Use Types Packs/Day Years [...]
--- OUTSIDE RECORDS SUMMARY | 2024-12-29 15:08 | XMS_ITS | Data Portability ---
Author Organization [facility] [place] Address [address] [place] [address] [place] [address] Care Team Providers Care Blood Donor Recruiter Supervisor Name Role Phone PABLO ARREDONDO Primary Care Provider Assessment Encounter Date Assessment Date Assessment LastModified by Organization Details LastModified Time 06/03/2022 06/03/2022 Annual gynecological exam performed. Patient will come back in a year unless there are new symptoms. avila Not available 06/03/2022 12:22:58 Plan of Treatment Reminders Order Date Submit Date Provider Last Modified By Organization Details Last Modified Time Details Appointments None recorded . Lab urinalys is, dipstick 2021 022 [email or web address] [place], [address], [place], [address], 2 12:50:26 urinalys is, dipstick 2021 022 [email or web address] [place], [address], [place], [address], 15:13:16 Referral None recorded . Procedures None recorded . Surgeries None recorded . Imaging MAMMO, diagnost ic, digital, bilatera l 2024 025 [email or web address] [facility], [address], [address] [facility], [place], [address], 5 11:12:06 US, breast, bilatera l, w/ axilla - mass in bilatera l axilla that comes and goes. Pt also due for mammogra m 2024 025 [email or web address] [place] , [address], [address] [address], [place], [address], 11:12:07 US, pelvis 2021 022 [email or web address] [place], [address], [address], [place], [address], 21:15:50 US, transvag inal 2021 022 [email or web address] [place], [address], [address], [place], [address], 21:15:50 US, pelvis, complete 2021 022 [place], [address], [place], [address], 10:50:55 Medication Orders fluconaz ole 150 mg tablet 2024 025 [facility][id number], [address] [place], [address], 5 11:31:04 nystatin -triamci nolone 100,000 unit/gra m-0.1 % topical ointment 2024 025 [facility]2510, [address] [place], [address], 5 11:31:04 estradio l 0.01% (0.1 mg/gram) vaginal cream 2024 025 [facility] #[id number], [address] [place], [address], 5 11:30:16 Uribel 118 mg-10 mg-40.8 mg-36 mg capsule 2021 022 [email or web address] [id number], [address], [place], [address], 2 13:18:21 Uribel 118 mg-10 mg-40.8 mg-36 mg capsule 2021 022 [email or web address] [facility][id number], [address], [place], [address], 2 12:26:11 Patient TargetsNo targets recorded. Patient InstructionsNo instructions recorded. Reason for Referral None Reported. Results Created Date Observation Date Name Description Value Unit Range Abnormal Flag Note LastModifiedBy Organization Detail LastModifiedTime 01/04/20 21 01/03/2021 pap, IG Pap test SEE RESULT S BELOW CASE REPOR T: Cytol ogy Gynec ologi darline Repor t Case: [id number] Autho jorge luis hamm Provi brennan: Mya Keller, BRANDON Colle cted: 01/03 1414 Order ing Locat ion: [place] [facility] Recei pamela: 01/04 1346 First Scree n: Helena Logan , [place] Speci men: Scree roberta Pap - Image d, Cervi x STATE MENT OF ADEQU ACY: Satis facto ry for evalu ation Trans forma tion zone compo nent absen t FINAL DIAGN OSIS: Negat suleiman for Squam ous Intra epith elial Lesio n Kaylan lara paolo d by Helena Logan , [place] on 2020 at 1:36 PM ----- ----- ----- ----- ----- ----- ----- ----- ----- ----- ----- ----- ----- ----- ----- ----- ----- ---- HPV RESUL TS: HPV mRNA E6/E7 : No HPV mRNA Detec charissa NOTE: This high risk HPV mRNA assay detec ts fourt een high- risk HPV types (16, 18, 31, 33, 35, 39, 45, 51, 52, 56, 58, 59, 66, 68) witho ut diffe renti ation . CHART ABLE COMME NT: Note: This speci men was revie wed by a Cytot echno logis t and/o r Patho logis t (as indic ated in this repor t) after evalu ation using the Thinp rep Imagi ng Syste m. CLINI DARLINE INFOR MATIO N: Menst rual Statu s: LMP (if appli cable ): Clini darline Histo ry/Pr eviou s Pap: Type of Neopl isidra (if appli cable ): Other Histo ry: Hormo kika (if appli cable ): PAP EDUCA SARMAD L NOTE: The Pap Test is a scree roberta test with an inher ent false negat suleiman rate. Liqui d-bas e sampl ing may decre ase, but will not elimi roxane, false negat suleiman resul ts. A negat suleiman resul t does not precl ude the prese nce and/o r devel opmen t of disea se, since the prese nce of abnor mal cells in the sampl e depen ds on the locat ion of the lesio n and sampl ing techn ique. Toño nued regul ar scree roberta is the best metho d of cance r preve ntion . If repor charissa cytol ogic findi ng do not corre late with physi darline and/o r histo rical findi ngs, furth er inves tigat ion is recom roderick d, as clini ari miranda nted. Not Available [facility] (Lab) [address], [place], [address], 01/05/2021 15:35:51 03/14/20 22 03/14/2022 urina lysis , dipst ick Leukocytes neg Not Available Rojelio carroll [address], [place], [address], 03/14/2022 15:12:38 03/14/20 22 03/14/2022 urina lysis , dipst ick Nitrite neg Not Available [place] [address], [place], [address], 03/14/2022 15:12:38 03/14/20 22 03/14/2022 urina lysis , dipst ick Urobilinogen neg Not Available [facility] royce [address], [place], [address], 03/14/2022 15:12:38 03/14/20 22 03/14/2022 urina lysis , dipst ick Protein neg Not Available [place] [address], [place], [address], 03/14/2022 15:12:38 03/14/20 22 03/14/2022 urina lysis , dipst ick pH 7 Not Available [place] [address], [place], [address], 03/14/2022 15:12:38 03/14/20 22 03/14/2022 urina lysis , dipst ick Specific [place] 1.010 Not Available [facility] [place] [address], [place], [address], 03/14/2022 15:12:38 03/14/20 22 03/14/2022 urina lysis , dipst ick Ketone neg Not Available [place] [address], [place], [address], 03/14/2022 15:12:38 03/14/20 22 03/14/2022 urina lysis , dipst ick Bilirubin neg Not Available Ramya howard [address], [place], [address], 03/14/2022 15:12:38 03/14/20 22 03/14/2022 urina lysis , dipst ick Glucose neg Not Available [place] [address], [place], [address], 03/14/2022 15:12:38 03/14/20 22 03/14/2022 urina lysis , dipst ick Appearance clear Not Available [facility] [address], [place], [address], 03/14/2022 15:12:38 03/14/20 22 03/14/2022 urina lysis , dipst ick Color yellow Not Available [place] [address], [place], [address], 03/14/2022 15:12:38 06/03/20 22 06/03/2022 urina lysis , dipst ick Leukocytes neg Not Available [facility] [address], [place], [address], 06/03/2022 12:48:50 06/03/20 22 06/03/2022 urina lysis , dipst ick Nitrite neg Not Available [place] [address], [place], [address], 06/03/2022 12:48:50 06/03/20 22 06/03/2022 urina lysis , dipst ick Urobilinogen neg Not Available [facility] roy[address], [place], [address], 06/03/2022 12:48:50 06/03/20 22 06/03/2022 urina lysis , dipst ick Protein 1+ Not Available [place] [address], [place], [address], 06/03/2022 12:48:50 06/03/20 22 06/03/2022 urina lysis , dipst ick pH 5 Not Available [place] [address], [place], [address], 06/03/2022 12:48:50 06/03/20 22 06/03/2022 urina lysis , dipst ick Specific [place] 1.030 Not Available [facility] [address], [place], [address], 06/03/2022 12:48:50 06/03/20 22 06/03/2022 urina lysis , dipst ick Ketone 1+ Not Available [place] [address], [place], [address], 06/03/2022 12:48:50 06/03/20 22 06/03/2022 urina lysis , dipst ick Bilirubin neg Not Available [facility] [address], [place], [address], 06/03/2022 12:48:50 06/03/20 22 06/03/2022 urina lysis , dipst ick Glucose neg Not Available [place] [address], [place], [address], 06/03/2022 12:48:50 06/03/20 22 06/03/2022 urina lysis , dipst ick Appearance turbid Not Available [facility] [address], [place], [address], 06/03/2022 12:48:50 06/03/20 22 06/03/2022 urina lysis , dipst ick Color dark yellow Not Available [place] [address], [place], [address], 06/03/2022 12:48:50 06/05/20 22 06/05/2022 URINA LYSIS , WITH MICRO SCOPI C, REFLE X CULTU RE op UA w/microscopi c rfx cult CANCEL LED Reord ered Not Available [facility] [address] [facility], [place], [address], 06/06/2022 06:10:53 06/05/20 22 06/05/2022 IMAGE GUIDE D PAP AND HPV REGAR DLESS image guided Pap, HPV regardless of Pap result SEE RESULT S BELOW CASE REPOR T: Cytol ogy Gynec ologi darline Repor t Case: [id number] Autho jorge luis hamm Provi brennan: Macy fierro , Nely Gaming cted: 06/05 0920 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 FINAL DIAGN OSIS: Negat suleiman for Intra epith elial Nanette chand or Lynette ferris (NIL) . Elect jamel lara paolo d by Shira penn, Juma morrow, CT on 2021 at 9:02 PM ----- ----- ----- ----- ----- ----- ----- ----- ----- ----- ----- ----- ----- ----- ----- ----- ----- ---- HPV RESUL TS: HPV mRNA E6/E7 : No HPV mRNA Detec charissa NOTE: This high risk HPV mRNA assay detec ts fourt een high- risk HPV types (16, 18, 31, 33, 35, 39, 45, 51, 52, 56, 58, 59, 66, 68) witho ut diffe renti ation . COMME NT: Note: This speci men was revie wed by a Cytot echno logis t and/o r Patho logis t (as indic ated in this repor t) after evalu ation using the Thinp rep Imagi ng Syste m. CLINI DARLINE INFOR MATIO N: Menst rual Statu s: LMP (if appli cable ): Clini darline Histo ry/Pr eviou s Pap: Type of Neopl isidra (if appli cable ): Signi fican t Clini darline Findi ngs: Other Histo ry: Hormo kika (if appli cable ): PAP EDUCA SARMAD L NOTE: The Pap Test is a scree roberta test with an inher ent false negat suleiman rate. Liqui d-bas ed sampl ing may decre ase, but will not elimi roxane, false negat suleiman resul ts. A negat suleiman resul t does not precl ude the prese nce and/o r devel opmen t of disea se, since the prese nce of abnor mal cells in the sampl e depen ds on the locat ion of the lesio n and sampl ing techn ique. Toño nued regul ar scree roberta is the best metho d of cance r preve ntion . If repor charissa cytol ogic findi ng do not corre late with physi darline and/o r histo rical findi ngs, furth er inves tigat ion is recom roderick d, as clini ari miranda nted. Not Available [facility] [address] [place] [address], [address], 06/09/2022 22:05:28 06/05/20 22 06/05/2022 TRICH OMONA S VAGIN HALLIE (RRNA ) trichomonas vaginalis ribosomal RNA (rrna) Negati ve negati ve Not Available [facility] [address] [place] [address], [address], 06/09/2022 22:05:28 06/05/20 22 06/05/2022 CT/GC (CESIA) , THINP REP VIAL chlamydia trachomatis, PCR Negati ve negati ve Not Available [facility] [id number] [place] [address], [phone], 06/09/2022 22:05:29 06/05/20 22 06/05/2022 CT/GC (CESIA) , THINP REP VIAL neisseria gonorrhoeae, PCR Negati ve negati ve Not Available [facility] [address], [place], [address], 06/09/2022 22:05:29 06/05/20 22 06/05/2022 MISC LAB TEST, REFER RED RESUL TS test results See Note URINA LYSIS , COMPL ETE W/REF SAKINA TO CULTU RE TEST NAME RESUL T FLAG UNITS REF RANGE ===== ==== ===== = ==== ===== ===== ==== Color Ur DARK YELLO W YELLO W Appea kelechi Ur TURBI D A CLEAR Sp Gr Ur Strip 1.032 1.001 -1.03 5 pH Ur Strip < OR = 5.0 5.0-8 .0 Gluco se Ur Ql Strip TRACE A NEGAT SULEIMAN Bilir ub Ur Ql Strip NEGAT SULEIMAN NEGAT SULEIMAN Keton es Ur Ql Strip TRACE A NEGAT SULEIMAN Hgb Ur Ql Strip NEGAT SULEIMAN NEGAT SULEIMAN Prot Ur Ql Strip TRACE A NEGAT SULEIMAN Nitri te Ur Ql Strip NEGAT SULEIMAN NEGAT SULEIMAN Leuko cyte sri ase Ur Ql Strip 1+ A NEGAT SULEIMAN WBC #/are a UrnS HPF 0-5 /HPF < OR = 5 RBC #/are a UrnS HPF NONE SEEN /HPF < OR = 2 Squam ous #/are a UrnS HPF 6-10 A /HPF < OR = 5 Bacte amarjit #/are a UrnS HPF MODER ATE A /HPF NONE SEEN CaOx Cry #/are a UrnS HPF MODER ATE A /HPF NONE OR FEW Urate Cry #/are a UrnS HPF FEW /HPF NONE OR FEW Hyali ne Casts #/are a UrnS LPF NONE SEEN /LPF NONE SEEN Bacte amarjit Ur Cult CULTU RE INDIC ATED - RESUL TS TO FOLLO W Bacte amarjit Ur Cult SEE NOTE CULTU RE, URINE , ROUTI NE Micro Numbe r: [id number] Test Statu s: Final Speci men Sourc e: Urine Speci men Quali ty: Adequ ate Resul t: Mixed genit al kraig isola charissa. These super ficia l bacte amarjit are not indic ative of a urina ry tract infec tion. No furth er organ ism ident ifica tion is warra nted on this speci men. If clini ari indic ated, recol lect clean -catc h, mid-s tream urine and trans philippe immed iatel y to Urine Cultu re Trans port Tube. Test Perfo rmed at: [facility] [address] [place] [address] Fauzia alejandro M.D. Perfo rming Organ izati on Infor matshawanda n: Site ID: [id number] Name: [facility] Addre ss: [address] [place] [address] Dire tor: Fauzia alejandro M.D. Not Available [facility] [address] [place] [address], [address], 06/09/2022 22:05:29 12/05/19 25 12/05/2024 [facility], CARMEN bacterial vaginosis (bv), tma Negati ve negati ve This test detec ts ribos omal RNA from bacte amarjit assoc iated with bacte rial vagin osis (BV), inclu ding Lacto bacil suleman (L. gasse ri, L. crisp atus and L. jense ovi), Gardn erell a vagin hallie, and Atopo bium vagin ae by Trans cript ion-M ediat ed Ampli ficat ion (TMA) . A singl e quali tativ e resul t is repor charissa based on instr ument softw are to deter mine BV posit suleiman or negat suleiman statu s. Not Available [facility] (Lab) [address], [place], [address], 12/07/2024 23:59:37 12/05/19 25 12/05/2024 WOMEN 'S HEALT H SWAB, CARMEN diana species, tma Negati ve negati ve Not Available [facility] (Lab) [address] [facility], [place], [address], 12/07/2024 23:59:37 12/05/19 25 12/05/2024 WOMEN 'S HEALT H SWAB, CARMEN diana glabrata, tma Negati ve negati ve Not Available [facility] (Lab) [address] [facility], [place], [address], 12/07/2024 23:59:37 12/05/19 25 12/05/2024 [facility] SWAB, CARMEN trichomonas vaginalis, tma Negati ve negati ve This assay tests for and diffe renti efrain la en Allie da glabr yuki, the Allie da speci es group (C. albic ans, C. tropi calis , C. parap remington is, C. dubli niens is), and Trich omona s vagin hallie by Trans cript ion-M ediat ed Ampli ficat ion (TMA) . Not Available [facility] (Lab) [address] [facility], [place], [address], 12/07/2024 23:59:37 06/12/20 22 06/12/2022 US, pelvi s No observ ation record ed. [email or web address] [place] [address], [place], [address], 06/12/2022 16:51:12 06/12/20 22 06/12/2022 US, trans vagin al No observ ation record ed. [email or web address] [place] [address], [place], [address], 06/12/2022 16:51:21 06/12/20 22 06/12/2022 US, pelvi s No observ ation record ed. [email or web address] [facility] [address], [place], [address], 04/26/2023 09:49:28 Result Notes None recorded. 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 1 10:36:59 Cervicov aginal cytology specimen unsatis actory [id number] Completed 201612/30/2020 Unsatis actory cytologi c smear of cervix;R ecorded Elsewher e: No Locat ion: [facility] S ource: [employer] Ebs Consultant yessica: N Elizabethti ce ID: [id number] Kingsley lable Time: 08:30:00 AM Keesha Sadi jewell [facility] 1 10:36:[address] Concept Completed 201612/30/2020 Encntr for general adult medical exam w/o abnormal findings ;Recorde d Elsewher e: No Locat ion: [facility] S ource: [employer] Ebs Consultant yessica: N Elizabethti ce ID: [id number] Kingsley lable Time: 08:30:00 AM Keesha Sadi jewell [facility] 1 10:36:58 Vaginal vault smear result - finding [id number] Completed 201712/30/2020 Unsatis actory cytologi c smear of vagina;R ecorded Elsewher e: No Locat ion: [facility] S ource: [employer] Ebs Consultant yessica: N Practi ce ID: [id number] Kingsley lable Time: 09:45:00 AM Keesha Sadi jewell [facility] 10:37:17 Finding of tobacco use and exposure Completed 201612/30/2020 Tobacco use;Sean rded Elsewher e: No Locat ion: [facility] S ource: [employer] Ebs Consultant yessica: N Practi ce ID: [id number] Kingsley lable Time: 08:30:00 AM Keesha jewell [facility] 1 10:37:02 Screenin g for malignan t neoplasm of rectum Completed 201612/30/2020 Encounte r for screenin g for malignan t neoplasm of rectum;R ecorded Elsewher e: No Locat ion: Shiraduglas howard [facility] S ource: [facility] Districto yessica: N Practi ce ID: [id number] Kingsley lable Time: 08:30:00 AM Keesha jewell, [facility] 1 10:36:55 Problem Notes None recorded. Procedures Surgical History Date Name Laterality Status Provider Name and Address Organization Details Recorded Time 2 Date of Last Pap Smear completed KEVIN Aldridge [facility] 12/05/2024 09:34:26 1 Date of Last Mammogram completed Keesha Avitia [facility] 01/03/2021 12:25:20 1 completed Shae Sheppard [facility] 03/14/2022 15:11:38 2 delivery completed [facility] 09/27/2020 14:28:43 6 delivery completed [facility] 09/27/2020 14:28:32 Imaging Results Imaging Date Name Status LastModified by Organization Details LastModified Time 06/12/2022 US, pelvis completed [email or web address] [facility] [address], [place], [address], 06/12/2022 16:51:12 06/12/2022 US, transvaginal completed [email or web address] [facility] [address], [place], [address], 06/12/2022 16:51:21 06/12/2022 US, pelvis completed [email or web address] [facility] [address], [place], [address], 04/26/2023 09:49:28 Procedure Notes None recorded. Medical Equipment None Reported. Allergies No known drug allergies Medications Name Sig Start Date Stop Date Status Note LastModified by Organization Details LastModified Time metformin 500 mg tablet TAKE 1 TABLET BY MOUTH DAILY AT DINNER 06/03 completed Not Available Not Available Not Available triamcinolo ne acetonide 0.5 % topical cream CHARLES TO RASH ON THE HANDS BID UNTIL CLEAR BUT NO LONGER THAN 2 WEEKS AT A TIME 09/27 completed Not Available Not Available Not Available azithromyci n 250 mg tablet TAKE 2 TABLETS BY MOUTH TODAY, THEN TAKE 1 TABLET DAILY FOR 4 DAYS DIRECTED 12/05 completed Not Available Not Available Not Available fluconazole 150 mg tablet TAKE 1 TABLET BY MOUTH NOW, REPEAT IN 72 HOURS IF NEEDED active Not Available Not Available No t Available valacyclovi r 1 gram tablet TAKE 2 TABLETS BY MOUTH EVERY 12 HOURS FOR 1 DAY, AT EARLEST ONSET OF SYMPTOMS active Not Available Not Available No t Available prednisone 20 mg tablet TAKE 1 TABLET BY MOUTH EVERY DAY 12/05 completed Not Available Not Available Not Available niacin ER 500 mg tablet,exte nded release 24 hr TAKE 1 TABLET BY MOUTH EVERY MORNING 03/14 completed Not Available Not Available Not Available metformin 850 mg tablet take 1 tablet by oral route 2 times every day with morning and evening meals 01/03 completed Not Available Not Available Not Available ketorolac 10 mg tablet TAKE 1 TABLET BY MOUTH EVERY 6 HOURS FOR 5 DAYS NEEDED FOR PAIN 03/14 completed Not Available Not Available Not Available nystatin-tr iamcinolone 100,000 unit/gram-0 .1 % topical ointment APPLY TO AFFECTED AREA TWICE A DAY FOR 7 DAYS active Not Available Not Available No t Available tamsulosin 0.4 mg capsule TAKE 1 CAPSULE BY MOUTH DAILY 03/14 completed Not Available Not Available Not Available hydrocodone 7.5 mg-acetamin ophen 325 mg tablet TAKE 1/2 TO 1 TABLET BY MOUTH EVERY 6 HOURS NEEDED FOR SEVERE KIDNEY STONE PAIN 03/14 completed Not Available Not Available Not Available estradiol 0.01% (0.1 mg/gram) vaginal cream INSERT 1G VAGINALLY AT BEDTIME 2-3 TIMES PER WEEK active Not Available Not Available No t Available ondansetron 4 mg disintegrat ing tablet DISSOLVE 1 TABLET ON THE TONGUE EVERY 6 HOURS NEEDED FOR NAUSEA OR VOMITING 03/14 completed Not Available Not Available Not Available cefdinir 300 mg capsule TAKE 1 CAPSULE BY MOUTH EVERY 12 HOURS 06/03 completed Not Available Not Available Not Available metformin ER 500 mg tablet,exte nded release 24 hr TAKE 1 TABLET BY MOUTH EVERY EVENING active Not Available Not Available No t Available nitrofurant oin monohydrate /macrocryst als 100 mg capsule TAKE 1 CAPSULE BY MOUTH TWICE DAILY WITH FOOD FOR 7 DAYS active Not Available Not Available No t Available Trulicity 0.75 mg/0.5 mL subcutaneou s pen injector 0.75 MG (0.5 ML) SUBCUTANE OUSLY WEEKLY active Not Available Not Available No t Available Uro-MP 118 mg-10 mg-40.8 mg-36 mg capsule TAKE 1 CAPSULE TWICE A DAY BY ORAL ROUTE NEEDED FOR 7 DAYS. active Not Available Not Available No t Available Repatha SureClick 140 mg/mL subcutaneou s pen injector ADM 1 ML SC Q 2 WKS IN THE MORNING 09/27 completed Not Available Not Available Not Available Linzess 72 mcg capsule TAKE 1 CAPSULE BY MOUTH EVERY DAY IN THE MORNING FOR 90 DAYS active Not Available Not Available No t Available Ozempic 0.25 mg or 0.5 mg (2 mg/1.5 mL) subcutaneou s pen injector INJECT 0.5 MG UNDER THE SKIN ONCE WEEKLY WITH MEALS 12/05 completed Not Available Not Available Not Available Ozempic 1 mg/dose (4 mg/3 mL) subcutaneou s pen injector INJECT 1 MG UNDER THE SKIN EVERY WEEK AT DINNER 03/14 completed Not Available Not Available Not Available Paxlovid 300 mg (150 mg x 2)-100 mg tablets in a dose pack TAKE 2-150MG NIRMATREL VIR WITH 1-100MG RITONAVIR TAB TWICE A DAY X 5 DAYS *DO NOT TAKE HYDROCODO NE* 06/03 completed Not Available Not Available Not Available Vitals Date Recorded Body height Body mass index (BMI) Body weight Systolic blood pressure Diastolic blood pressure Provider Name and Address Organization Details Last Updated DateTime 01/03/2021 152.4 cm 29.1 kg/m2 24730.26 g 138 mm[Hg] 80 mm[Hg] Keesha Avitia [facility] 12:24:52 Date Recorded Body height Body mass index (BMI) Body weight Provider Name and Address Organization Details Last Updated DateTime 03/14/2022 157.48 cm 27.4 kg/m2 24062.86 g Shae Sheppard [facility] 03/14/2022 15:11:21 Date Recorded Systolic blood pressure Diastolic blood pressure Provider Name and Address Organization Details Last Updated DateTime 03/14/2022 126 mm[Hg] 82 mm[Hg] Sonia Aldridge, [facility] [address], [place], [address], [facility] 03/22/2022 14:58:32 Date Recorded Body height Body mass index (BMI) Body weight Provider Name and Address Organization Details Last Updated DateTime 06/03/2022 157.48 cm 27.7 kg/m2 53882.6 g Ethel Rodriguez [facility] 06/03/2022 12:23:55 Date Recorded Systolic blood pressure Diastolic blood pressure Provider Name and Address Organization Details Last Updated DateTime 06/03/2022 122 mm[Hg] 78 mm[Hg] Sonia Aldridge, [facility] [address], [place], [address], [facility] 06/03/2022 12:31:51 Date Recorded Body height Body mass index (BMI) Body weight Systolic blood pressure Diastolic blood pressure Provider Name and Address Organization Details Last Updated DateTime 12/05/2024 157.48 cm 27.8 kg/m2 20606.76 g 140 mm[Hg] 80 mm[Hg] KEVIN Aldridge [facility] 11:03:15 Social History Question Answer Notes LastModified by Organizat ion Details LastModified Time Tobacco Smoking Status Former Smoker Quit just over 1 year ago. Checo jewell, [facility] 06/03/2022 12:11:09 Do You Have An Advance Directive? No Information not available 03/14/2022 How Many Years Have You Consumed Alcohol? 30 Information not available 03/14/2022 Are You Blind Or Do You Have Difficulty Seeing? No Information not available 03/14/2022 What Is Your Level Of Caffeine Consumption? Occasional Information not available 03/14/2022 In The 14 Days Before Symptom Onset, Have You Had Close Contact With A Laboratory-confir med COVID-19 While That Case Was Ill? No Information not available 03/14/2022 In The 14 Days Before Symptom Onset, Have You Had Close Contact With A Person Who Is Under Investigation For COVID-19 While That Person Was Ill? No Information not available 03/14/2022 Have You Been To An Area Known To Be High Risk For COVID-19? No Information not available 03/14/2022 Are You Deaf Or Do You Have Serious Difficulty Hearing? No Information not available 03/14/2022 What Type Of Diet Are You Following? REGULAR Information not available 03/14/2022 What Is The Highest Grade Or Level Of School You Have Completed Or The Highest Degree You Have Received? 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 No Information not available 03/14/2022 Do You Use Your Seat Belt Or Car Seat Routinely? Yes Information not available 03/14/2022 Do You Have Smoke And Carbon Monoxide Detectors In Your Home? Yes Information not available 03/14/2022 How Much Tobacco Do You Smoke? No Information not available 03/14/2022 Do You Feel Stressed (tense, Restless, Nervous, Or Anxious, Or Unable To Sleep At Night)? [id number] Information not available 03/14/2022 Do You Use Any Illicit Or Recreational Drugs? No Information not available 03/14/2022 Do You Use Sunscreen Routinely? Yes Information not available 03/14/2022 Have You Used IV Drugs? No Information not available 03/14/2022 Sex: Unknown Functional Status Question Answer Note LastModified by Organizat ion Details LastModified Time Do you have difficulty walking or climbing stairs? No Information not available 06/03/2022 Are you able to walk? YESWOREST Information not available 03/14/2022 Are you able to care for yourself? Yes Information not available 06/03/2022 Do you have difficulty dressing or bathing? No Information not available 06/03/2022 What is your exercise level? Occasional Information not available 03/14/2022 Mental Status None recorded. Family History Relationship Description Onset Age of this Age Resolved Age Notes LastModified by Organization Details LastModified Time Mother Diabetes mellitus [email or web address] Not available 2019 14:30:55 Mother Hypercholest erolemia [email or web address] Not available 2019 14:31:59 Maternal Grandmother Diabetes mellitus [email or web address] Not available 2019 14:31:06 Maternal Aunt Hypercholest erolemia [email or web address] Not available 2019 14:31:59 Maternal Aunt Carcinoma in situ of breast [email or web address] Not available 2021 12:11:08 Maternal Aunt Carcinoma in situ of lung [email or web address] Not available 12:11:08 Maternal Aunt Heart disease [email or web address] Not available 2019 14:32:52 Medical History Condition Response Allergies (Food, seasonal, environmental ) N Other N Drug/Latex Allergies/Reactions N Blood Transfusion N Breast Cancer N Dermatologic Disorders N Lung Disease N Defects or Inherited Disease N Breast Problem N Gestational Diabetes N Hematologic disorders N Anesthesia Complications N History of STI N Deep Vein Thrombosis N Polycystic ovary syndrome N Anxiety Disorder N Autoimmune disease N Arthritis N Polyps N Infertility N Acid Reflux (GERD) N History of abnormal pap N Cancer N Varicosities N Stroke N Neurologic/Epilepsy N Endometriosis N High Cholesterol Y Fibromyalgia N Headaches N Kidney Disease N Heart Problems N Thyroid Problems N Kidney or Bladder Problems N GI Problems N Eating Disorder N Anemia N Art (IVF or FET) N Psychiatric Illness N Ovarian Cancer N Diabetes Y Pulmonary (TB, Asthma) N Hepatitis/Liver Disease N Eczema N Urinary Tract Infection N Abuse/Domestic Violence N Asthma N Trauma/Violence N Depression/ depression N Heart Disease N Pre-Eclampsia N Hypertension N Osteoporosis N Thrombophilias N Gynecological History Statement/Question Response Abnormal Pap Y Date of Last Mammogram 12/13/2020 Date of LMP On BCP's at Conception? N N STIs/STDs N HPV Vaccine N Current Control Method Menopause Age at First Child 31 If Post Menopausal, Age at Menopause 50 Sexually Active? N Age of first menstrual cycle 9 Date of Last Pap Smear 06/05/2022 Sexual Problems? N LMP Unknown 11/05/2020 N Obstetrics History GPAL:G 2 P 2 0 0 2 Type Value Full Term 2 Living 2 Total 2 Past Encounters Encounter ID Performer Location Encounter Start Date Encounter Closed Date Diagnosis/Indication Diagnosis SNOMED-CT Code Diagnosis ICD10 Code Diagnosis Note [id number] Kerline Sam MD [place] [address],[facility] [place] [address] 09/27/2020 14:19:37 09/27/2020 14:58:40 Perianal dermatitis 871007761 L30.9 Diarrhea 36453524 R19.7 [id number] Mya Chambers [place] [address],[facility] [place] [address] 01/03/2021 12:17:49 01/03/2021 13:10:03 Gynecologic examination 17092267 Z01.419 Take Calcium with Vitamin D 12-1500mg daily. Do monthly self breast exams. It is advised to get annual flu shot in the fall and she could obtain at [facility] or [facility] care clinic. If you haven't received the Tdap vaccine in the last 10 years you should obtain one as well. Have mammogram yearly, bone density every 2-3 years and colonoscop y every 5-10 years depending on findings and history. Engage in daily exercise of low impact aerobic exercise 45-60 minutes 4-5 times weekly. Avoid tobacco and illicit drugs as well as using moderation with alcohol intake less than 1-2 8 oz beverages daily. This lifestyle behavior pattern will lead to less health conditions and longer life span. If BMI greater than 25 weight watchers or dietary consult advised. Questions have been answered. Patient appears to understand instructio ns, but if you have any further questions call or respond to this email. [id number] Sonai Aldridge , [facility] [address],[place] [address] 03/14/2022 14:52:53 03/22/2022 17:03:47 Pain in pelvis 62134379 R10.2 Today we agreed to monitor.Wi ll reach out if has this issue present again & we can schedule an US.It is likely that this was just residual discomfort from passing kidney stones which was voiced understand ing after reviewing anatomy of the pelvis.Gav e samples of uribel prn use.Has f/u with urologist later this month.No other questions or concerns today. Time spent in visit is a total of 15 mins with at least 50% of visit consisting of counseling and review of plan of care. [id number] Sonia Aldridge , [facility] [address] [address] 06/03/2022 12:09:50 06/05/2022 16:38:55 Gynecologic examination 65380013 Z01.419 Take Calcium with Vitamin D 12-1500mg daily. Do monthly self breast exams. It is advised to get annual flu shot in the fall and she could obtain at [facility] or [facility] care clinic. If you haven't received the Tdap vaccine in the last 10 years you should obtain one as well. Have mammogram yearly, bone density every 2-3 years and colonoscop y every 5-10 years depending on findings and history. Engage in daily exercise of low impact aerobic exercise 45-60 minutes 4-5 times weekly. Avoid tobacco and illicit drugs as well as using moderation with alcohol intake less than 1-2 8 oz beverages daily. This lifestyle behavior pattern will lead to less health conditions and longer life span. If BMI greater than 25 weight watchers or dietary consult advised. Questions have been answered. 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 Patient is to contact office or go to nearest ED/Urgent care if fever >/= 100.1, pain, excessive bleeding, unusual drainage or swelling in area of concern; or experienci ng worsening sx's or new onset of concerning sx's. Understand ing verbalized . All questions answered to patient satisfacti on. Urinary symptoms 7781305 08 R39.9 Will sent urine [id number] Martha Sheppard [place] [address],[facility] [place] [address] 06/12/2022 15:22:48 06/12/2022 16:07:02 Pain in pelvis 75444086 R10.2 [id number] SANDHYA Champagne [place] [address],[facility] [place] [address] 12/05/2024 10:44:54 12/05/2024 11:35:46 Vaginitis 93148074 N76.0 vaginitis panel sentvulvar care guidelines discussed (d/c use of vagisil wash/wipes )rx sent for yeast, r/b/a reviewed Vaginal dryness 00725416 N89.8 veg based moisturize r routine discussedr x sent for vaginal estradiol cream, r/b/a reviewed, questions answered Mass of axilla 415245190 R22.2 mammogram with axillary u/s ordered Time spent in visit is a total of 30 mins with at least 50% of visit consisting of counseling and review of plan of care. BP precaution s reviewed, encouraged PCP f/u Health Concerns Section Related Observation LastModified by Organization Detai ls LastModified Time None Recorded Concern Status LastModified by Organization Details LastModified Time None Recorded Advance Directives Directive N: Payers Encounter Date Sequence Insurance Name Policy Number Policy Gonzalez Covered Member ID Gonzalez Member ID Guarantor Name 01/03/2021 1 [facility] [place] - DOS PRIOR TO 2024 (PPO) [id number] Li Holman [id number] Li Holman 03/14/2022 1 [employer] - [place] - [place] PRIOR TO 2024 (PPO) [id number] Li Holman [id number] Li Holman 06/03/2022 1 [facility] - [place] - [place] PRIOR TO 2024 (PPO) [id number] Li Holman [id number] Li Holman 06/12/2022 1 [facility] - [place] - DOS PRIOR TO 2024 (PPO) [id number] Li Holman [id number] Li Holman 12/05/2024 1 [place] - [place] PRIOR TO 2024 (PPO) Li Holman [id number] Li Holman Notes Date Note Type Note Provider Name and Address Organization Details Recorded Time 1 text/html Annual GYNReported bypatient.History:Endocri nologist orders all labs (including wellness) every April. Menstrual cycle:Menopausal. No symptoms. Urinary symptoms:No hematuria; No incontinence Vulva:No genital lesion Vagina:Normal vaginal discharge Breast:No breast pain; No breast lump; No nipple discharge Sexual complaints:No sexual complaints; No pain during intercourse; Normal libido Menopausal Symptoms:No menopausal symptoms; Normal vaginal lubrication Psychological symptoms:No depression; No anxiety; No PMDD Mya jewell, [facility] 01/03/2021 12:53:09 2 text/html Here today for recent episode of pelvic pain.She Recently had issues with kidney stones.Passed them which was seen on Imaging.Was set to complete lipthotrpsy but not needed because of passed stones.Is starting to feel better.See's a urologist for this.During this time she had one instance of intense shooting, cramping vaginal pain that radiated up to her belly button.It has since resolved and no issuesShe is not SA.Has no other issues or complaints today. SANDHYA Pleitez- [address], [place], [address], [facility] 03/22/2022 15:03:23 2 text/html Annual Manager Distribution Post-MenopausalReported bypatient.Menopausal Symptoms:no menopausal symptoms; normal vaginal lubrication Vaginal Bleeding:history of menopause having occurred; no history of post menopausal bleeding Urinary Symptoms:no hematuria; no incontinence; no nocturia; no urinary frequency;urine odor;burning sensation during urination(Feels like a stabbing in her vagina per pt started this past week. Ate some popcorn which can sometimes flare up her diverticulitis. Then these sx's began.) Vulva:no genital lesion; no vulvar atrophy Vagina:normal vaginal discharge; no vaginal atrophy Breast:no breast lump; no nipple discharge; no breast pain Sexual Complaints:no sexual complaints Psychological Symptoms:no depression; no anxiety Preventive Measures:encourage regular mammograms starting age 40; encourage self breast examination; encourage regular exercise; encourage no tobacco use; mammogram performed within the past year; history of recent colonoscopy Shooting pains in vagina after eating popcornHas diverticulitisUrinary issuesHx of Kidney stone SANDHYA Pleitez- [address], [place], [address], [facility] 06/03/2022 13:22:13 5 text/html 59yopresents with c/o vaginal itching/burning/irritatio n/drynesshas been using vagisil wipes and washnot currently SAbilateral lumps on axilla that come and go, currently feels one on the left, due for a mammogram SANDHYA Champagne [address], [place], [address], [facility] 12/05/2024 11:35:38 OBGyn Episode Ob Episode Information Episode Created Date Number of Fetuses Patient Bloodtype Patient rh Status Prepregnancy Weight lbs Domestic Partner Domestic Partner Phone Father Name Licensed Massage Therapist Status 09/27/20 20 1 CLOSED Fetus Data First Name Last Name Admitted to NICU Weight (g) Sex Living Outcome Pediatric Complications Fetus ID Race Codes Race Delivery Type 3883.65 [id number] Primary Flaco Calculation Initial Flaco Date Initial Exam Date Initial Exam Provider Initial Ultrasound Date Last Menstrual Period Date Ultra Sound Weeks Gestation 0 Eighteen To Twenty Week Flaco Update Ultra Sound Date Fundal Height At Umbil Quickening Date Ultra Sound Latest Weeks Gestation Final Flaco Confirmed By Final Flaco Confirmed Date Final Flaco Date Ultra Sound Latest Days Gestation 0 0 Menstrual History Last Menstrual Date Menses Monthly On Bcp Conception Prior Menses Frequency Hcg Plus Date Menarche Onset Age Delivery Information Delivery Date Delivery Type Labor Anesthesia Weeks Gestation Incision Type Labor Labor Length Hrs Delivered By Post Complications Tubal Sterilization Discharge Date Comments 2 Discharge Information Feeding Method Contraceptive Method Maternal HG B and HCT Levels Ob Episode Information Episode Created Date Number of Fetuses Patient Bloodtype Patient rh Status Prepregnancy Weight lbs Domestic Partner Domestic Partner Phone Father Name Licensed Massage Therapist Status 09/27/20 20 1 CLOSED Fetus Data First Name Last Name Admitted to NICU Weight (g) Sex Living Outcome Pediatric Complications Fetus ID Race Codes Race Delivery Type 2891.64 [phone] [id number] Primary Flaco Calculation Initial Flaco Date Initial Exam Date Initial Exam Provider Initial Ultrasound Date Last Menstrual Period Date Ultra Sound Weeks Gestation 0 Eighteen To Twenty Week Flaco Update Ultra Sound Date Fundal Height At Umbil Quickening Date Ultra Sound Latest Weeks Gestation Final Flaco Confirmed By Final Flaco Confirmed Date Final Flaco Date Ultra Sound Latest Days Gestation 0 0 Menstrual History Last Menstrual Date Menses Monthly On Bcp Conception Prior Menses Frequency Hcg Plus Date Menarche Onset Age Delivery Information Delivery Date Delivery Type Labor Anesthesia Weeks Gestation Incision Type Labor Labor Length Hrs Delivered By Post Complications Tubal Sterilization Discharge Date Comments 6 Discharge Information Feeding Method Contraceptive Method Maternal HG B and HCT Levels
== END 2024-12-29 12:50 | disposition home or self-care (01) ==
LOC: ANHIMG 12:51
PROVIDERS: PCP Family Medicine; Visit Provider Nurse Practitioner
DX: R92.8 Other abnormal and inconclusive findings on diagnostic imaging of breast (principal)
CPT/HCPCS: 76641; 77062; 77066; G0279

== ENCOUNTER 2025-01-17 21:31 | Inpatient (IN) | payer OTHER, SELFPAY ==
[2025-01-17] VITALS (10 sets, daily range): BP systolic 134–161; BP diastolic 70–86; PULSE 75–92; RESP 11–19; TEMP 36.5; O2SAT 96–100
--- NOTE | ~2025-01-17 | XR_ITS ---
XR chest 2V Ordering provider: Nancy Gaytan MD History: 59 years Female with . CHEST PAIN . Comparison: None. FINDINGS: MEDIASTINUM: The cardiac silhouette is not enlarged. LUNGS: No infiltrates, effusions or pneumothorax. OTHER: No free air under the diaphragm. Degenerative changes of the spine. IMPRESSION: No acute cardiopulmonary pathology. Reviewed, dictated and finalized at location A.
--- OUTSIDE RECORDS SUMMARY | 2025-01-17 21:34 | XMS_ITS | Data Portability ---
Author Organization [facility] [place] Address [address] [place] [address] [place] [address] Care Team Providers Care Manager Alliance Name Role Phone PABLO ARREDONDO Primary Care [...] Lab urinalys is, dipstick 2021 022 avila [facility], [address], [place], [address], 2 12:50:26 urinalys is, dipstick 2021 022 [email or web address] [facility], [address], [place], [address], 15:13:16 Referral None recorded . Procedures None recorded . Surgeries None recorded . Imaging MAMMO, diagnost ic, digital, bilatera l 2024 025 SIOMARA [facility], [address], [address] [place] [address], [place], [address], 5 16:34:24 US, breast, bilatera l, w/ axilla - mass in bilatera l axilla that comes and goes. Pt also due for mammogra m 2024 025 [facility] , [address], [address] [address], [place], [address], 11:12:07 US, pelvis 2021 022 [email or web address] [facility], [address], [address], [place], [address], 21:15:50 US, transvag inal 2021 022 [email or web address] [facility], [address], [address], [place], [address], 21:15:50 US, pelvis, complete 2021 022 [facility], [place], [address], 10:50:55 Medication Orders fluconaz ole 150 mg tablet 2024 025 [facility][id number], [address] [place], [address], 5 11:31:04 nystatin -triamci nolone 100,000 unit/gra m-0.1 % topical ointment 2024 025 [facility][id number], [address] [place], [address], 5 11:31:04 estradio l 0.01% (0.1 mg/gram) vaginal cream 2024 025 [facility][id number], [address] [place], [address], 5 11:30:16 Uribel 118 mg-10 mg-40.8 mg-36 mg capsule 2021 022 [email or web address] [id number], [address], [place], [address], 2 13:18:21 Uribel 118 mg-10 mg-40.8 mg-36 mg capsule 2021 022 vschroedter [facility] #[id number], [address], [place], [address], 2 12:26:11 Patient TargetsNo targets recorded. Patient [...] Squam ous Intra epith elial Lesio n Elect jamel lara paolo d by Helena Logan , [...] as clini ari miranda nted. Not Available [facility] (Lab) [address], [place], [address], 01/05/2021 15:35:51 03/14/20 22 03/14/2022 urina lysis , dipst ick Leukocytes neg Not Available Rojelio carroll [address], [place], [address], 03/14/2022 15:12:38 03/14/20 22 03/14/2022 urina lysis , dipst ick Nitrite neg Not Available [facility] [address], [place], [address], 03/14/2022 15:12:38 03/14/20 22 03/14/2022 urina lysis , dipst ick Urobilinogen neg Not Available [facility] royce [address], [place], [address], 03/14/2022 15:12:38 03/14/20 22 03/14/2022 urina lysis , dipst ick Protein neg Not Available [facility] [address], [place], [address], 03/14/2022 15:12:38 03/14/20 22 03/14/2022 urina lysis , dipst ick pH 7 Not Available [facility] [address], [place], [address], 03/14/2022 15:12:38 03/14/20 22 03/14/2022 urina lysis , dipst ick Specific Glennallen 1.010 Not Available [facility] gloria [address], [place], [address], 03/14/2022 15:12:38 03/14/20 22 03/14/2022 urina lysis , dipst ick Ketone neg Not Available [facility] [address], [place], [address], 03/14/2022 15:12:38 03/14/20 22 03/14/2022 urina lysis , dipst ick Bilirubin neg Not Available Ramya howard [address], [place], [address], 03/14/2022 15:12:38 03/14/20 22 03/14/2022 urina lysis , dipst ick Glucose neg Not Available [facility] [address], [place], [address], 03/14/2022 15:12:38 03/14/20 22 03/14/2022 urina lysis , dipst ick Appearance clear Not Available [facility] glen [address], [place], [address], 03/14/2022 15:12:38 03/14/20 22 03/14/2022 urina lysis , dipst ick Color yellow Not Available [facility] [address], [place], [address], 03/14/2022 15:12:38 06/03/20 22 06/03/2022 urina lysis , dipst ick Leukocytes neg Not Available [facility] glen [address], [place], [address], 06/03/2022 12:48:50 06/03/20 22 06/03/2022 urina lysis , dipst ick Nitrite neg Not Available [facility] [address], [place], [address], 06/03/2022 12:48:50 06/03/20 22 06/03/2022 urina lysis , dipst ick Urobilinogen neg Not Available [facility] royce [address], [place], [address], 06/03/2022 12:48:50 06/03/20 22 06/03/2022 urina lysis , dipst ick Protein 1+ Not Available [facility] [address], [place], [address], 06/03/2022 12:48:50 06/03/20 22 06/03/2022 urina lysis , dipst ick pH 5 Not Available [facility] [address], [place], [address], 06/03/2022 12:48:50 06/03/20 22 06/03/2022 urina lysis , dipst ick Specific [place] 1.030 Not Available [facility] [address], [place], [address], 06/03/2022 12:48:50 06/03/20 22 06/03/2022 urina lysis , dipst ick Ketone 1+ Not Available [facility] [address], [place], [address], 06/03/2022 12:48:50 06/03/20 22 06/03/2022 urina lysis , dipst ick Bilirubin neg Not Available [facility] [address], [place], [address], 06/03/2022 12:48:50 06/03/20 22 06/03/2022 urina lysis , dipst ick Glucose neg Not Available [facility] [address], [place], [address], 06/03/2022 12:48:50 06/03/20 22 06/03/2022 urina lysis , dipst ick Appearance turbid Not Available [facility] [address], [place], [address], 06/03/2022 12:48:50 06/03/20 22 06/03/2022 urina lysis , dipst ick Color dark yellow Not Available [facility] [address], [place], [address], 06/03/2022 12:48:50 06/05/20 22 06/05/2022 URINA LYSIS , WITH MICRO SCOPI C, REFLE X CULTU RE op UA w/microscopi c rfx cult CANCEL LED Reord ered Not Available [facility] [address] [facility], [place], [address], 06/06/2022 06:10:53 06/05/20 22 06/05/2022 IMAGE GUIDE D PAP AND HPV REGAR DLESS image guided Pap, HPV regardless of Pap result SEE RESULT S BELOW CASE REPOR T: Cytol ogy Gynec ologi darline Repor t Case: [id number] Autho jorge luis hamm Provi brennan: Macy fierro , Nely Gaming cted: 06/05 0920 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 Not Available [facility] [address] [place], [address], 06/09/2022 22:05:28 06/05/20 22 06/05/2022 TRICH OMONA S VAGIN HALLIE (RRNA ) trichomonas vaginalis ribosomal RNA (rrna) Negati ve negati ve Not Available [facility] [address] [place], [address], 06/09/2022 22:05:28 06/05/20 22 06/05/2022 CT/GC (CESIA) , THINP REP VIAL chlamydia trachomatis, PCR Negati ve negati ve Not Available [facility] [address] [place] [address], [address], 06/09/2022 22:05:06/05/20 22 06/05/2022 CT/GC (CESIA) , THINP REP VIAL neisseria gonorrhoeae, PCR Negati ve negati ve Not Available [facility] [address], [place], [address], 06/09/2022 22:05:29 06/05/20 22 06/05/2022 MISC LAB [...] URINE , ROUTI NE Micro Numbe r: [id number] Test Statu s: Final Speci men [...] ostic s-Leal d Angel [address] [place] [address] Fauzia alejandro M.D. Perfo rming Organ izati on Infor matio n: Site ID: [id number] Name: [facility] Addre ss: [address] [place] [address] Dire tor: Fauzia alejandro M.D. Not Available [facility] [address] [place] [address], [address], 06/09/2022 22:05:29 12/05/19 25 12/05/2024 WOMEN 'S [...] or negat suleiman statu s. Not Available [facility] (Lab) [address], [place], [address], 12/07/2024 23:59:37 12/05/19 25 12/05/2024 [facility] '[facility], CARMEN diana species, tma Negati ve negati ve Not Available [facility] (Lab) [address] [facility], [place], [address], 12/07/2024 23:59:37 12/05/19 25 12/05/2024 WOMEN 'S HEALT H SWAB, CARMEN diana glabrata, tma Negati ve negati ve Not Available [facility] (Lab) [address] [facility], [place], [address], 12/07/2024 23:59:37 12/05/19 25 12/05/2024 WOMEN 'S [...] Ampli ficat ion (TMA) . Not Available [facility] (Lab) [address] [facility], [place], [address], 12/07/2024 23:59:37 06/12/20 22 06/12/2022 US, pelvi s No observ ation record ed. [email or web address] [facility] [address], [place], [address], 06/12/2022 16:51:12 06/12/20 22 06/12/2022 US, trans vagin al No observ ation record ed. [email or web address] [facility] [address], [place], [address], 06/12/2022 16:51:21 06/12/20 22 06/12/2022 US, pelvi s No observ ation record ed. [email or web address] [facility] [address], [place], [address], 04/26/2023 09:49:28 12/30/1912/29/2024 MAMMO , diagn ostic , digit al, bilat eral No observ ation record ed. [email or web address] [facility] [address], [place], [address], 12/31/2024 09:54:42 Result Notes None recorded. 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 10:36:59 Cervicov aginal cytology specimen unsatisf actory [id number] Completed 201612/30/2020 Unsatisf actory cytologi c smear of cervix;R ecorded Elsewher e: No Locat ion: [facility] S ource: EHR Soils Analyst yessica: N Practi ce ID: 0001 Kingsley lable Time: 08:30:00 AM Keesha jewell [facility] 10:36:[address] Concept Completed 201612/30/2020 Encntr for general adult medical exam w/o abnormal findings ;Recorde d Elsewher e: No Locat ion: [facility] S ource: EHR Soils Analyst yessica: N Practi ce ID: 0001 Kingsley lable Time: 08:30:00 AM Keesha jewell [facility] 10:36:58 Vaginal vault smear result - finding [id number] Completed 201712/30/2020 Unsatisf actory cytologi c smear of vagina;R ecorded Elsewher e: No Locat ion: [facility] S ource: EHR Soils Analyst yessica: N Practi ce ID: 0001 Kingsley lable Time: 09:45:00 AM Keesha jewell [facility] 1 10:37:17 Finding of tobacco use and exposure Completed 201612/30/2020 Tobacco use;Sean rded Elsewher e: No Locat ion: [facility] S ource: EHR Soils Analyst yessica: N Practi ce ID: 0001 Kingsley lable Time: 08:30:00 AM Keesha jewell [facility] 1 10:37:02 Screenin g for malignan t neoplasm of rectum Completed 201612/30/2020 Encounte r for screenin g for malignan t neoplasm of rectum;R ecorded Elsewher e: No Locat ion: [facility] S ource: [facility] Soils Analyst yessica: N Practi ce ID: 0001 Kingsley lable Time: 08:30:00 AM Keesha jewell [facility] 1 10:36:55 Problem Notes None recorded. Procedures Surgical History Date Name Laterality Status Provider Name and Address Organization Details Recorded Time 2 Date of Last Pap Smear completed KEVIN Aldridge [facility] 12/05/2024 09:34:26 1 Date of Last Mammogram completed Keesha Sadi [facility] 01/03/2021 12:25:20 1 completed Shae Sheppard [facility] 03/14/2022 15:11:38 2 delivery completed Radha [facility] 09/27/2020 14:28:43 6 delivery completed Radha [facility] 09/27/2020 14:28:32 Imaging Results Imaging Date Name Status LastModified by Organization Details LastModified Time 06/12/2022 US, pelvis completed [email or web address] [facility] [address], [place], [address], 06/12/2022 16:51:12 06/12/2022 US, transvaginal completed [email or web address] Ramya howard [address], [place], [address], 06/12/2022 16:51:21 06/12/2022 US, pelvis completed [email or web address] [facility] [address], [place], [address], 04/26/2023 09:49:28 12/29/2024 MAMMO, diagnostic, digital, bilateral completed [email or web address] [facility] [address], [place], [address], 12/31/2024 09:54:42 Procedure Notes None recorded. Medical Equipment None [...] Updated DateTime 01/03/2021 152.4 cm 29.1 kg/m2 46486.26 g 138 mm[Hg] 80 mm[Hg] Keesha Avitia [facility] 12:24:52 Date Recorded Body height Body mass index (BMI) Body weight Provider Name and Address Organization Details Last Updated DateTime 03/14/2022 157.48 cm 27.4 kg/m2 54845.86 g Shae Sheppard [facility] 03/14/2022 15:11:21 Date Recorded Systolic blood pressure Diastolic blood pressure Provider Name and Address Organization Details Last Updated DateTime 03/14/2022 126 mm[Hg] 82 mm[Hg] Sonia Aldridge [facility] [address], [place], [address], [facility] 03/22/2022 14:58:32 Date Recorded Body height Body mass index (BMI) Body weight Provider Name and Address Organization Details Last Updated DateTime 06/03/2022 157.48 cm 27.7 kg/m2 75315.6 g Ethel Rodriguez [facility] 06/03/2022 12:23:55 Date Recorded Systolic blood pressure Diastolic blood pressure Provider Name and Address Organization Details Last Updated DateTime 06/03/2022 122 mm[Hg] 78 mm[Hg] Sonia Aldridge [facility]- [address], [place], [address], [facility] 06/03/2022 12:31:51 Date Recorded Body height Body mass index (BMI) Body weight Systolic blood pressure Diastolic blood pressure Provider Name and Address Organization Details Last Updated DateTime 12/05/2024 157.48 cm 27.8 kg/m2 38068.76 g 140 mm[Hg] 80 mm[Hg] KEVIN Aldridge [facility] 11:03:15 Social History Question Answer Notes LastModified by Organizat ion Details LastModified Time Tobacco Smoking Status Former Smoker Quit just over 1 year ago. Checo jewell, [facility] 06/03/2022 12:11:09 Do You Have An [...] Or The Highest Degree You Have Received? 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 [id number] Information not available 03/14/2022 Do You Use [...] Maternal Aunt Carcinoma in situ of breast [email or web address] Not available 2021 12:11:08 Maternal Aunt Carcinoma in situ of lung [email or web address] Not available 12:11:08 Maternal Aunt Heart disease [email or web address] Not available 2019 14:32:52 Medical History Condition Response Other N Blood Transfusion N Dermatologic Disorders N Gestational Diabetes N Anxiety Disorder N Autoimmune disease N Arthritis N Polyps N Infertility N Acid Reflux (GERD) N Cancer N Varicosities N Stroke N Neurologic/Epilepsy N Fibromyalgia N Headaches N Kidney Disease N Heart Problems N Kidney or Bladder Problems N Eating Disorder N Art (IVF or FET) N Hepatitis/Liver Disease N Urinary Tract Infection N Asthma N Trauma/Violence N Thrombophilias N Allergies (Food, seasonal, environmental ) N Breast Cancer N Drug/Latex Allergies/Reactions N Lung Disease N Defects or Inherited Disease N Breast Problem N Hematologic disorders N Anesthesia Complications N History of STI N Deep Vein Thrombosis N Polycystic ovary syndrome N History of abnormal pap N Endometriosis N High Cholesterol Y Thyroid Problems N GI Problems N Anemia N Psychiatric Illness N Ovarian Cancer N Diabetes Y Pulmonary (TB, Asthma) N Eczema N Abuse/Domestic Violence N Depression/ depression N Heart Disease N Pre-Eclampsia N Hypertension N Osteoporosis N Gynecological History Statement/Question Response Abnormal Pap [...] SNOMED-CT Code Diagnosis ICD10 Code Diagnosis Note [id number] Kerline Sam MD [facility] [address] [address] 09/27/2020 14:19:37 09/27/2020 14:58:40 Perianal dermatitis [id number] L30.9 Diarrhea 08179799 R19.7 [id number] Mya Padmajafloridalma [facility] [address] [address] 01/03/2021 12:17:49 01/03/2021 13:10:03 Gynecologic examination 28525047 Z01.419 Take Calcium with Vitamin D 12-1500mg daily. Do monthly self breast exams. It is advised to get annual flu shot in the fall and she could obtain at [facility] or [facility] take care clinic. If you haven't received the [...] questions call or respond to this email. [id number] Sonia Aldridge [facility] [address],[facility] [address] 03/14/2022 14:52:53 03/22/2022 17:03:47 Pain in pelvis 72250635 R10.2 Today we agreed to monitor.Wi ll [...] counseling and review of plan of care. [id number] Sonia Aldridge [facility] [address],[facility] [place] [address] 06/03/2022 12:09:50 06/05/2022 16:38:55 Gynecologic examination 29607622 Z01.419 Take Calcium with Vitamin D 12-1500mg daily. Do monthly self breast exams. It is advised to get annual flu shot in the fall and she could obtain at [facility] or [facility] take care clinic. If you haven't received the [...] [facility] PCPmammo WNL Pain in pelvis 99837281 R10.2 Will complete pelvic US and send urine.Unsu re at this point if preschool director vs urogyn vs GI since has hx [...] answered to patient satisfacti on. Urinary symptoms 9595767 08 R39.9 Will sent urine [id number] Martha Sheppard [facility] [address] [address] 06/12/2022 15:22:48 06/12/2022 16:07:02 Pain in pelvis 83111842 R10.2 [id number] SANDHYA Champagne [facility] [address] [address] 12/05/2024 10:44:54 12/05/2024 11:35:46 Vaginitis 82394192 N76.0 vaginitis panel sentvulvar care guidelines discussed (d/c use of vagisil wash/wipes )rx sent for yeast, r/b/a reviewed Vaginal dryness 15577002 N89.8 veg based moisturize r routine discussedr x sent for vaginal estradiol cream, r/b/a reviewed, questions answered Mass of axilla 684318843 R22.2 mammogram with axillary u/s ordered Time [...] Gonzalez Member ID Guarantor Name 01/03/2021 1 [facility] - DOS PRIOR TO 2024 (PPO) [id number] Li L Whiteclay [id number] Li L Whiteclay 03/14/2022 1 [facility] - [facility] - DOS PRIOR TO 2024 (PPO) [id number] Li L River [id number] Li L Whiteclay 06/03/2022 1 [facility] - GEHA - DOS PRIOR TO 2024 (PPO) [id number] Li L River [id number] Li L Whiteclay 06/12/2022 1 [facility] - GEHA - DOS PRIOR TO 2024 (PPO) [id number] Li L River [id number] Li L River 12/05/2024 1 GEHA - DOS PRIOR TO 2024 (PPO) Li L Whiteclay [id number] Li Devin Holman Notes Date Note Type Note Provider [...] symptoms:No depression; No anxiety; No PMDD Mya jewell [facility] 01/03/2021 12:53:09 2 text/html Here today [...] complaints today. SANDHYA Pleitez- [address], [place], [address], [facility] 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 06/03/2022 13:22:13 5 text/html 59yopresents with c/o vaginal itching/burning/irritatio n/drynesshas been using vagisil wipes and washnot currently SAbilateral lumps on axilla that come and go, currently feels one on the left, due for a mammogram SANDHYA Champagne [address], [place], [address], [facility] 12/05/2024 11:35:38 OBGyn Episode Ob Episode Information Episode Created Date Number of Fetuses Patient Bloodtype Patient rh Status Prepregnancy Weight lbs Domestic Partner Domestic Partner Phone Father Name Professional Development Instructor Status 09/27/20 20 1 CLOSED Fetus Data [...] Domestic Partner Domestic Partner Phone Father Name Professional Development Instructor Status 09/27/20 1 CLOSED Fetus Data First Name Last [...]
--- OUTSIDE RECORDS SUMMARY | 2025-01-17 21:34 | XMS_ITS | Clinical Summary ---
Author Organization [facility] [employer] Address [address] [facility] [address] [place] [address] Care Team Providers Care Drill Instructor Name Role Phone Unavailable Primary Care Provider Unavailabl e Source Comments [facility],non-owned Affiliates and Associated Physician Practices is amultiple site organization consisting of ambulatory clinics and hospital sitesin [place], [place], [place] and [place]. This disclosure is being madepursuant to the Care Everywhere program and may not contain all information available regarding this patient. Last updated 18.[facility] Allergies No known active allergies Medications * [...] VACCINE (1 - 2023-2 5 season) 2024 DEPRESSION SCREENING 10/15/2024 INFLUENZA VACCINE (Season Ended) 2025 Respiratory Syncytial Virus (RSV) Vaccine Pt: or [...]
--- NOTE | 2025-01-17 21:48 | ECG_ITS ---
Test Date: 2025-01-17 21:43:15 Measurements Intervals Allen Rate: 79 P: 50 LA: 162 QRS: 57 QRSD: 85 T: 63 QT: 375 QTc: 430 Interpretive Statements SINUS RHYTHM BORDERLINE ST ABNORMALITY- INF/LAT LEADS BASELINE ARTIFACT- V5 BORDERLINE ECG No previous ECG available for comparison Electronically Signed On 01-18-2025 07:27:07 CDT by Hugo Campbell D.O.
[2025-01-17 22:01] LABS: Basophils Absolute Auto 0.1 K/mm3 (0.0-0.1); Basophils Percent Auto 1.1 % (0.2-1.2); Eosinophils Absolute Auto 0.2 K/mm3 (0-0.3); Eosinophils Percent Auto 1.6 % (0-4.4); Hematocrit 42.9 % (37.0-47.0); Hemoglobin 14.1 g/dL (12.0-15.0); Immature Granulocyte Absolute 0.04 K/mm3 (0.00-0.031); Immature Granulocyte Percent A 0.3 % (0-0.5); Lymphocytes Absolute Auto 5.86 K/mm3 (0.9-3.2); Lymphocytes Percent Auto 45.6 % (18.3-44.2); Mean Corpuscular HGB Conc 32.9 g/dl (32-36); Mean Corpuscular Hemoglobin 26.8 pg (26-34); Mean Corpuscular Volume 81.4 fl (80-100); Mean Platelet Volume 11.3 fl (7.4-10.4); Monocytes Absolute Auto 0.8 K/mm3 (0.1-0.6); Monocytes Percent Auto 6.2 % (2.6-8.5); Neutrophils Absolute Auto 5.8 K/mm3 (1.3-6.7); Neutrophils Percent Auto 45.2 % (45.5-73.1); Platelet Count Result 328 k/mm3 (150-375); Red Blood Count 5.27 M/mm3 (4.2-5.4); Red Cell Distribution Width 13.6 % (11.5-14.5); White Blood Count 12.9 K/mm3 (4.5-10.0)
[2025-01-17 22:13] LABS: INR 0.8; Prothrombin Time 11.7 Seconds (11.1-14.7)
[2025-01-17 22:14] LABS: Partial Thromboplastin Time 24.9 Seconds (22.3-36.8)
[2025-01-17 22:25] LABS: Albumin Level 4.6 g/dL (3.5-5.1); Alkaline Phosphatase 111 U/L (38-126); Anion Gap 16 mmol/L (4-12); Bilirubin,Total 0.6 mg/dL (0.2-1.3); Blood Urea Nitrogen 13 mg/dL (7-17); Calcium 9.6 mg/dL (8.4-10.2); Carbon Dioxide 19 mmol/L (22-30); Chloride 101 mmol/L (98-107); Estimated CRCL calculation 83 ml/min; Estimated Glomerular Filt Rate > 60; Lipase 243 U/L (23-300); Sodium 136 mmol/L (137-145)
[2025-01-17 22:31] LABS: Alanine Aminotransferase 44 U/L (6-35); Aspartate Amino Transferase 41 U/L (14-36); Glucose 386 mg/dL (65-110); Potassium 4.1 mmol/L (3.4-5.0)
[2025-01-17 23:44] LABS: Strep Group A RT-PCR NOT DETECTED (Negative)
--- OUTSIDE RECORDS SUMMARY | 2025-01-17 23:45 | XMS_ITS | Clinical Summary ---
Author Organization [facility] [employer] Address [address] [place] [address] Care Team Providers Care Coal Conveyor Operator Name Role Phone Unavailable Primary Care Provider Unavailabl e Source Comments [facility] [employer],non-owned Affiliates and Associated Physician Practices is amultiple site organization consisting of ambulatory clinics and hospital sitesin [place], [place], [place] and [place]. This disclosure is being madepursuant to the Care Everywhere program and may not contain all information available regarding this patient. Last updated 18.[facility] Allergies No known active allergies Medications * [...]
[2025-01-18] VITALS (36 sets, daily range): BP systolic 117–152; BP diastolic 62–109; PULSE 69–92; RESP 9–22; TEMP 36.5–37.1; O2SAT 97–100; BMI 26.9
[2025-01-18] LABS: Influenza A QL RT-PCR Negative (Negative); Influenza B QL RT-PCR Negative (Negative); RSV RNA, RT-PCR Negative (Negative); SARS-CoV-2 RNA PCR Negative (Negative)
--- NOTE | 2025-01-18 00:23 | ED.CHESTPAIN ---
HPI - Chest Pain General Chief Complaint: Chest Pain Stated Complaint: chest pain Time Seen by Provider: 01/17/25 23:38 Source: patient and family Mode of arrival: ambulatory Limitations: no limitations History of Present Illness HPI narrative: Patient presents chest pain started this morning center for chest. Was initially reported that the pain radiates towards her back however she denies this when asked. 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 She describes it as a constant tightness which she thought was maybe due to hot flashes or indigestion. She has been feeling weak. She states this happened once before. The last time she saw revenue coordinator was a long time ago. She had a sore throat yesterday but otherwise in baseline state of health. When she took her blood pressure at home but was 200/100. Cardiac risk factors HTN: 0 HLD: + (not on meds, states can't take stain) DM: +, non insulin dependent Obese: 0 Smoker: yes, vapes nicotine Personal history VT/TIA/CVA: 0 Fam Hx VT in first degree relative <65yo: Yes, father Related Data Allergies Allergy/AdvReac Type Severity Reaction Status Date / Time Cahoojh-GDE-[id number] Reductase Allergy Nausea and Verified 01/17/25 21:32 Inhibitor Vomiting ciprofloxacin AdvReac Mild nausea and Verified 01/17/25 21:32 vomitting aspirin AdvReac Nausea and Verified 01/17/25 21:32 Vomiting PMFSH Past Medical History Medical History (Updated 01/19/25 @ 12:58 by Fernando Campbell MD) Encounter for wellness examination in adult BMI 26.0-26.9,adult Osteoarthritis of both hips moderate osteoarthritis of both hips noted on x-ray 01/06/2022. Chronic anxiety Chronic depression BMI 25.0-25.9,adult Overweight (BMI 25.0-29.9) Chronic midline low back pain without sciatica (~2014) Mild spondylosis at L5-S1 with facet arthropathy in the lower lumbar spine on CT of the abdomen and pelvis 01/12/2022. MRI of the lumbar spine on 09/01/2015 with annular bulge at L5-S1 with mild facet arthropathy. CT of the lumbar spine on 08/06/2024 reveals chronic pars defect at L5 with bulging disc at L3-L4-L4-L5 and L5-S1 with mild central stenosis and facet arthropathy with mild foraminal narrowing. Wellness examination Muscle cramps Constipation COVID-19 (05/08/22) tested positive 05/09/2022. Breast cancer screening by mammogram normal mammogram 04/22/2022. Normal mammogram 07/28/2023. UTI (urinary tract infection) Diverticulosis otherwise normal colonoscopy 11/08/2020 Fatty liver (~10/13/20) Stricture of ascending colon (~10/13/20) no stricture on colonoscopy 11/08/2020 Abdominal pain Acute non-recurrent maxillary sinusitis Palpitation Encounter for screening for other viral diseases Exposure to COVID-19 virus Headache Dyshidrotic eczema Ureteral stone Chronic rhinitis Obstructive sleep apnea of adult Irritable bowel syndrome with constipation Controlled diabetes mellitus type II without complication fasting glucose 134 with hemoglobin A1c 7.3 and urine microalbumin ratio of 5 with GFR 86 on 04/23/2024 Mixed hyperlipidemia Patient is intolerant to all statins, fenofibrate, Zetia, gemfibrozil .total cholesterol 361, HDL 47, triglycerides 441 with LDL not calculated and ratio 7.7 on 04/23/2024. High cholesterol Diabetes IBS (irritable bowel syndrome) Surgical History Surgical History History of 2 sections 1995, 2000 History of cholecystectomy Family History Family History Mother Diabetes mellitus Other Acute myocardial infarction High cholesterol Father Acute myocardial infarction Grandparent Diabetes mellitus Grandparent Lung disease Social History Social History (Updated 01/20/25 @ 05:04 by Nancy Gaytan MD) Years smoked: 20 Smoking status: Current every day smoker Tobacco type: e-cigarettes/vaping Second hand tobacco smoke exposure: Yes Smoking end date: 10/19/19 Additional smoking assessment comments: few vape pods/day Alcohol intake: current Drinks per week: 2 Alcohol use details: 4-5/MONTH Substance use: never Substance use type: does not use Do You Feel Safe in your Home?: Yes Lack of Transportation: No Lack of Food: Never True Current Housing: I Have Housing Concerned About Future Housing: No Difficulty Paying Gas/Electric Bills: No Difficulty Paying for Meds: No Currently Unemployed: No Education: High School Diploma/GED Difficulty w/ Childcare or Family Care: No Living arrangements: with family Occupation/Education: occupation Additional occupation/education comments: works for [employer], sedentary job Spiritual care concerns: No Exam Narrative: GENERAL: Well-appearing, well-nourished, and in no acute distress. HEAD: Normocephalic, atraumatic. EYES: Non injected, non icteric ENT: Nares clear, no rhinorrhea or epistaxis. NECK: Supple. CHEST: Speaking in full sentences. No respiratory distress. HEART: Regular rate and rhythm. . ABDOMEN: Soft, nondistended. EXTREMITIES: Normal range of motion. No bilateral lower extremity edema. SKIN: Warm, dry, no rash. NEURO: No focal deficits. Alert and oriented x3. PSYCH: Normal mood and affect. Course Vital Signs Vital signs: Vital Signs Pulse Oximetry 99 01/17/25 21:44 Oxygen Delivery Room Air 01/17/25 21:44 Temperature 98.0 F 01/19/25 19:00 Pulse Rate 96 01/20/25 04:00 Respiratory Rate 18 01/20/25 04:00 Blood Pressure 124/61 01/20/25 04:00 Pulse Oximetry 95 01/20/25 04:00 Oxygen Delivery Room Air 01/20/25 04:00 Oxygen Flow Rate 2 01/19/25 11:30 MDM - Chest Pain MDM Narrative Medical decision making narrative: Patient presents with central chest pain starting this morning. She denies any particularly radiating although she has been experiencing intense pain in her bilateral arms particularly at her elbows. She describes it as a constant tightness in her chest and has been feeling weak In the emergency department she is afebrile with vital signs notable for hypertension, initially 161/86 with improvement to 142/83. HEART SCORE History 2 highly suspicious 1 moderately suspicious 0 slightly suspicious History score [address] depression/elevation not due to LBBB, LVH, or digoxin [address] depression but LBBB, LVH, nonspecific repolarization changes 0 normal ECG score 0 Age 2 >/= 65 1 45-64 0 <45 Age score 1 Risk factors (HTN, hypercholesterolemia, DM, obesity with BMI >30, current smoker or cessation </=3mo), positive fam hx with parent or sibling with CVD before age 65, atherosclerotic disease (prior VT, PCI/CABG, CVA/TIA, or peripheral arterial disease) 2 >/= 3 risk factors or history of atherosclerotic dz 1 - 1-2 risk factors 0 no known risk factors Risk factor score 2 (HLD, DM, smoker/vapes, fam hx) Initial Troponin 2 >3 times normal limit 1 1-3 times normal limit 0 less than or equal to normal limit Troponin score 1 (2x upper limit normal); no prior for comparison. Total HEART Score 5. Patient is evaluated after her initial troponin has resulted. I informed her the diagnosis and the need for admission. She is initially tearful but is appropriately reassured. Family also verifies understanding and is in agreement. Aspirin ordered. Also IV fluids and morphine as well as ondansetron. She has hyperglycemia with an anion gap, not frankly acidotic on chemistry. Beta hydroxybutyrate ordered as is a hemoglobin A1c, the latter for risk stratification in addition to a lipid panel. She also has mild transaminitis. Pseudo hyponatremia as it corrects to normal (141/143) in the setting of hyperglycemia. Leukocytosis. Patient discussed with on-call hospitalist Dr. Nash. In addition to heparin, he does recommend given 8U short acting insulin. Repeat troponin has risen. EKG remains normal and patient's pain remains low, 2/10. Patient is already on heparin. Hemoglobin A1c greater than 10% thus poorly controlled diabetes. She has glucosuria but no acute anuria and beta hydroxybutyrate is normal. Differential Diagnosis Differential diagnosis: Likely stable angina, unstable angina pectoris, atypical chest pain, st elevation myocardial infarction, costochondritis, chest pain and biliary colic Lab Data Attestation: I reviewed the patient's lab results. Lab results narrative: Strep and viral panel negative. 01/20/25 04:10 01/20/25 04:10 Labs: Lab Results 01/17/25 01/17/25 01/17/25 Range/Units 21:50 21:52 23:09 WBC 12.9 H (4.5-10.0) K/mm3 RBC 5.27 (4.2-5.4) M/mm3 Hgb 14.1 (12.0-15.0) g/dL Hct 42.9 (37.0-47.0) % MCV 81.4 (80-100) fl MCH 26.8 (26-34) pg MCHC 32.9 (32-36) g/dl RDW 13.6 (11.5-14.5) % Plt Count 328 (150-375) k/mm3 MPV 11.3 H (7.4-10.4) fl Immature Gran % (Auto) 0.3 (0-0.5) % Neut % (Auto) 45.2 L (45.5-73.1) % Lymph % (Auto) 45.6 H (18.3-44.2) % [place] % (Auto) 6.2 (2.6-8.5) % Eos % (Auto) 1.6 (0-4.4) % Baso % (Auto) 1.1 (0.2-1.2) % Lymph # (Auto) 5.86 H (0.9-3.2) K/mm3 [place] # (Auto) 0.8 H (0.1-0.6) K/mm3 Eos # (Auto) 0.2 (0-0.3) K/mm3 Baso # (Auto) 0.1 (0.0-0.1) K/mm3 Abs Immat Gran (auto) 0.04 H (0.00-0.031) K/mm3 Absolute Neuts (auto) 5.8 (1.3-6.7) K/mm3 Absolute Nucleated RBC 0.000 (0.0-0.012) K/mm3 Total Counted Neutrophils % (Manual) (46-73) % Band Neutrophils % (0-6) % Lymphocytes % (Manual) (18-44) % Monocytes % (Manual) (3-9) % Eosinophils % (Manual) (0-4) % Basophils % (Manual) (0-1) % Nucleated RBC % 0.0 (0.0-0.2) % Abs Neuts (Manual) (1.7-7.2) K/mm3 Abs Lymphs (Manual) (1.1-4.5) K/mm3 Abs Monocytes (Manual) (0.1-0.90) K/mm3 Absolute Eos (Manual) (0.02-0.50) K/mm3 Abs Basophils (Manual) (0.0-0.1) K/mm3 Atypical Lymphocytes Smudge Cells Platelet Estimate (Adequate) Schistocytes PT 11.7 (11.1-14.7) Seconds INR 0.8 APTT 24.9 (22.3-36.8) Seconds Sodium 136 L (137-145) mmol/L Potassium 4.1 (3.4-5.0) mmol/L Chloride 101 (98-107) mmol/L Carbon Dioxide 19 L (22-30) mmol/L Anion Gap 16 H (4-12) mmol/L BUN 13 D (7-17) mg/dL Creatinine 0.57 L (0.7-1.0) mg/dL Estim Creat Clear Calc 83 ml/min Estimated GFR > 60 (59 - ) Glucose 386 H (65-110) mg/dL POC Capillary Glucose (65-105) mg/dl Hemoglobin A1c 10.1 H (<5.7) % Calcium 9.6 (8.4-10.2) mg/dL Magnesium (1.6-2.3) mg/dL Total Bilirubin 0.6 (0.2-1.3) mg/dL AST 41 H (14-36) U/L ALT 44 H (6-35) U/L Alkaline Phosphatase 111 (38-126) U/L Troponin I 0.070 H* (0.000-0.034) ng/mL Total Protein 8.0 (6.3-8.2) g/dL Albumin 4.6 (3.5-5.1) g/dL Triglycerides (<150) mg/dL Cholesterol (0-200) mg/dL LDL Cholesterol Direct mg/dL HDL Direct Lipase 243 (23-300) U/L Beta-Hydroxybutyrate/Acetoacetate (0.02-0.27) mmol/L Procalcitonin ng/mL Urine Color (Yellow) Urine Appearance (Clear) Urine pH (5.0-9.0) Ur Specific [place] (1.001-1.035) Urine Protein (Negative) mg/dL Urine Glucose (UA) (Negative) mg/dL Urine Ketones (Negative) mg/dL Ur Blood (Man) (Negative) Urine Nitrate (Negative) Urine Bilirubin (Negative) Urine Urobilinogen (<2.0) mg/dL Leukocyte Esterase Rfl (Negative) MORGAN/UL Influenza A (RT-PCR) Negative (Negative) Influenza B (RT-PCR) Negative (Negative) RSV (RT-PCR) Negative (Negative) SARS-CoV-2 RNA (RT-PCR) Negative (Negative) Group A Strep (PCR) Not detected (Negative) 01/18/25 01/18/25 01/18/25 Range/Units 01:12 01:22 02:51 WBC (4.5-10.0) K/mm3 RBC (4.2-5.4) M/mm3 Hgb (12.0-15.0) g/dL Hct (37.0-47.0) % MCV (80-100) fl MCH (26-34) pg MCHC (32-36) g/dl RDW (11.5-14.5) % Plt Count (150-375) k/mm3 MPV (7.4-10.4) fl Immature Gran % (Auto) (0-0.5) % Neut % (Auto) (45.5-73.1) % Lymph % (Auto) (18.3-44.2) % [place] % (Auto) (2.6-8.5) % Eos % (Auto) (0-4.4) % Baso % (Auto) (0.2-1.2) % Lymph # (Auto) (0.9-3.2) K/mm3 [place] # (Auto) (0.1-0.6) K/mm3 Eos # (Auto) (0-0.3) K/mm3 Baso # (Auto) (0.0-0.1) K/mm3 Abs Immat Gran (auto) (0.00-0.031) K/mm3 Absolute Neuts (auto) (1.3-6.7) K/mm3 Absolute Nucleated RBC (0.0-0.012) K/mm3 Total Counted Neutrophils % (Manual) (46-73) % Band Neutrophils % (0-6) % Lymphocytes % (Manual) (18-44) % Monocytes % (Manual) (3-9) % Eosinophils % (Manual) (0-4) % Basophils % (Manual) (0-1) % Nucleated RBC % (0.0-0.2) % Abs Neuts (Manual) (1.7-7.2) K/mm3 Abs Lymphs (Manual) (1.1-4.5) K/mm3 Abs Monocytes (Manual) (0.1-0.90) K/mm3 Absolute Eos (Manual) (0.02-0.50) K/mm3 Abs Basophils (Manual) (0.0-0.1) K/mm3 Atypical Lymphocytes Smudge Cells Platelet Estimate (Adequate) Schistocytes PT (11.1-14.7) Seconds INR APTT (22.3-36.8) Seconds Sodium (137-145) mmol/L Potassium (3.4-5.0) mmol/L Chloride (98-107) mmol/L Carbon Dioxide (22-30) mmol/L Anion Gap (4-12) mmol/L BUN (7-17) mg/dL Creatinine (0.7-1.0) mg/dL Estim Creat Clear Calc ml/min Estimated GFR (59 - ) Glucose (65-110) mg/dL POC Capillary Glucose (65-105) mg/dl Hemoglobin A1c (<5.7) % Calcium (8.4-10.2) mg/dL Magnesium (1.6-2.3) mg/dL Total Bilirubin (0.2-1.3) mg/dL AST (14-36) U/L ALT (6-35) U/L Alkaline Phosphatase (38-126) U/L Troponin I 0.447 H* D (0.000-0.034) ng/mL Total Protein (6.3-8.2) g/dL Albumin (3.5-5.1) g/dL Triglycerides 851 H (<150) mg/dL Cholesterol 323 H (0-200) mg/dL LDL Cholesterol Direct 41 mg/dL HDL Direct TNP Lipase (23-300) U/L Beta-Hydroxybutyrate/Acetoacetate 0.11 (0.02-0.27) mmol/L Procalcitonin ng/mL Urine Color Yellow (Yellow) Urine Appearance Clear (Clear) Urine pH 7.0 (5.0-9.0) Ur Specific [place] 1.014 (1.001-1.035) Urine Protein Negative (Negative) mg/dL Urine Glucose (UA) 3+ H (Negative) mg/dL Urine Ketones Negative (Negative) mg/dL Ur Blood (Man) Negative (Negative) Urine Nitrate Negative (Negative) Urine Bilirubin Negative (Negative) Urine Urobilinogen 0.2 (<2.0) mg/dL Leukocyte Esterase Rfl Negative (Negative) MORGNA/UL Influenza A (RT-PCR) (Negative) Influenza B (RT-PCR) (Negative) RSV (RT-PCR) (Negative) SARS-CoV-2 RNA (RT-PCR) (Negative) Group A Strep (PCR) (Negative) 01/18/25 01/18/25 01/18/25 Range/Units 04:17 04:39 07:48 WBC 9.9 (4.5-10.0) K/mm3 RBC 4.97 (4.2-5.4) M/mm3 Hgb 13.0 (12.0-15.0) g/dL Hct 41.4 (37.0-47.0) % MCV 83.3 (80-100) fl MCH 26.2 (26-34) pg MCHC 31.4 L (32-36) g/dl RDW 13.7 (11.5-14.5) % Plt Count 300 (150-375) k/mm3 MPV 10.8 H (7.4-10.4) fl Immature Gran % (Auto) Not Reportable (0-0.5) % Neut % (Auto) Not Reportable (45.5-73.1) % Lymph % (Auto) Not Reportable (18.3-44.2) % [place] % (Auto) Not Reportable (2.6-8.5) % Eos % (Auto) Not Reportable (0-4.4) % Baso % (Auto) Not Reportable (0.2-1.2) % Lymph # (Auto) Not Reportable (0.9-3.2) K/mm3 [place] # (Auto) Not Reportable (0.1-0.6) K/mm3 Eos # (Auto) Not Reportable (0-0.3) K/mm3 Baso # (Auto) Not Reportable (0.0-0.1) K/mm3 Abs Immat Gran (auto) Not Reportable (0.00-0.031) K/mm3 Absolute Neuts (auto) Not Reportable (1.3-6.7) K/mm3 Absolute Nucleated RBC Not Reportable (0.0-0.012) K/mm3 Total Counted 100 Neutrophils % (Manual) 58 (46-73) % Band Neutrophils % 3 (0-6) % Lymphocytes % (Manual) 26 (18-44) % Monocytes % (Manual) 4 (3-9) % Eosinophils % (Manual) 6 H (0-4) % Basophils % (Manual) 3 H (0-1) % Nucleated RBC % Not Reportable (0.0-0.2) % Abs Neuts (Manual) 6.03 (1.7-7.2) K/mm3 Abs Lymphs (Manual) 2.57 (1.1-4.5) K/mm3 Abs Monocytes (Manual) 0.39 (0.1-0.90) K/mm3 Absolute Eos (Manual) 0.59 H (0.02-0.50) K/mm3 Abs Basophils (Manual) 0.29 H (0.0-0.1) K/mm3 Atypical Lymphocytes Present Smudge Cells Few Platelet Estimate Adequate (Adequate) Schistocytes None seen PT (11.1-14.7) Seconds INR APTT (22.3-36.8) Seconds Sodium 137 (137-145) mmol/L Potassium 3.6 (3.4-5.0) mmol/L Chloride 104 (98-107) mmol/L Carbon Dioxide 21 L (22-30) mmol/L Anion Gap 12 (4-12) mmol/L BUN 9 (7-17) mg/dL Creatinine 0.55 L (0.7-1.0) mg/dL Estim Creat Clear Calc 86 ml/min Estimated GFR > 60 (59 - ) Glucose 182 H (65-110) mg/dL POC Capillary Glucose 196 H (65-105) mg/dl Hemoglobin A1c (<5.7) % Calcium 9.0 (8.4-10.2) mg/dL Magnesium 1.8 (1.6-2.3) mg/dL Total Bilirubin (0.2-1.3) mg/dL AST (14-36) U/L ALT (6-35) U/L Alkaline Phosphatase (38-126) U/L Troponin I 1.180 H* D 1.850 H* D (0.000-0.034) ng/mL Total Protein (6.3-8.2) g/dL Albumin (3.5-5.1) g/dL Triglycerides (<150) mg/dL Cholesterol (0-200) mg/dL LDL Cholesterol Direct mg/dL HDL Direct Lipase (23-300) U/L Beta-Hydroxybutyrate/Acetoacetate (0.02-0.27) mmol/L Procalcitonin 0.1 ng/mL Urine Color (Yellow) Urine Appearance (Clear) Urine pH (5.0-9.0) Ur Specific [place] (1.001-1.035) Urine Protein (Negative) mg/dL Urine Glucose (UA) (Negative) mg/dL Urine Ketones (Negative) mg/dL Ur Blood (Man) (Negative) Urine Nitrate (Negative) Urine Bilirubin (Negative) Urine Urobilinogen (<2.0) mg/dL Leukocyte Esterase Rfl (Negative) MORGAN/UL Influenza A (RT-PCR) (Negative) Influenza B (RT-PCR) (Negative) RSV (RT-PCR) (Negative) SARS-CoV-2 RNA (RT-PCR) (Negative) Group A Strep (PCR) (Negative) Imaging Data Attestation: I personally reviewed and interpreted this imaging study as follows: My impression: No acute process on my independent interpretation Radiologist's impression: IMPRESSION: No acute cardiopulmonary pathology. ECG Data EKG #1: Attestation: I personally reviewed and interpreted this ECG as follows: ECG completion date: 01/18/25 ECG completion time: 21:43 Interpretation: Normal sinus rhythm at a rate of 79 beats per minute. MD interval 162. QRS 85. QT/QTC 375/409. Good R-wave progression across the precordial leads. No T-wave inversions. Normal ECG. EKG #2: Attestation: I personally reviewed and interpreted this ECG as follows: ECG completion date: 01/18/25 ECG completion time: 01:08 Interpretation: Normal sinus rhythm at a rate of 65 beats per minute. MD interval 165. QRS 76. QT/QTC 392/404. Good R-wave progression across the precordial leads. No T-wave inversions. Discharge Plan Discharge Clinical Impression: Hyperglycemia due to diabetes mellitus, Non-ST elevation VT (NSTEMI), Pseudohyponatremia, Transaminitis, Leukocytosis, Hemoglobin A1c greater than 9.0%, Glucosuria Patient Disposition: Still a Patient Condition: Stable
--- NOTE | 2025-01-18 00:57 | ECG_ITS ---
Test Date: 2025-01-18 01:08:17 Measurements Intervals [place] Rate: 65 P: 55 SC: 165 QRS: 55 QRSD: 76 T: 59 QT: 392 QTc: 410 Interpretive Statements SINUS RHYTHM WITH SINUS ARRHYTHMIA BORDERLINE ST ABNORMALITY- ANTEROLAT/INF LEADS BASELINE ARTIFACT- I, III, AVR, AVL, V4 BORDERLINE ECG Compared to ECG 01/17/2025 21:43:15 NO SIGNIFICANT CHANGE Electronically Signed On 01-18-2025 07:32:23 CDT by Hugo Campbell D.O.
--- NOTE | 2025-01-18 01:00 | PC.NURSE ---
This RN attempted to get 3 hour trop, but pt had to use the restroom. Once pt returns to room, this RN will draw 3 hour trop.
[2025-01-18] MEDS: ASPIRIN 81 MG CHEWABLE TABLET 324 MG PO (01:11)
[2025-01-18] MEDS: ONDANSETRON INJ 4 MG/2 ML VIAL IV PUSH (01:12)
[2025-01-18] MEDS: SODIUM CHLORIDE 0.9% IV 1,000 ML 999 ML IV CONT (01:13)
[2025-01-18] MEDS: MORPHINE SULFATE (*CRX) 4 MG/ML INJ IV PUSH ×2 (01:13→06:04)
--- NOTE | 2025-01-18 01:26 | PC.NURSE ---
During morphine admin pt became extremely anxious.
[2025-01-18 02:01] LABS: Troponin I 0.447 ng/mL (0.000-0.034)
[2025-01-18] MEDS: HEPARIN SOD/D5W 100 UNITS/ML 25,000 UNITS/250 ML BAG 7 UNITS IV CONT (02:02)
[2025-01-18] MEDS: HEPARIN SODIUM 5,000 UNITS/ML VIAL 4000 UNITS IV PUSH ×3 (02:04→13:25)
[2025-01-18] MEDS: INSULIN ASPART (*BKC) 100 UNITS/ML 8 UNITS SUB-Q (02:09)
[2025-01-18 02:39] LABS: Hemoglobin A1C 10.1 % (<5.7)
[2025-01-18 02:42] LABS: Beta-Hydroxybutyrate/Acetoacetate 0.11 mmol/L (0.02-0.27)
[2025-01-18 02:59] LABS: Add Urine Microscopic? NO; Appearance Urine Clear (Clear); Bilirubin Urine Negative (Negative); Blood Urine Negative (Negative); Color Urine Yellow (Yellow); Glucose Urine UA 3+ mg/dL (Negative); Ketones Urine Negative (Negative); Leukocyte Esterase Ur Negative LEU/UL (Negative); Nitrate Urine Negative (Negative); Protein Urine Negative (Negative); Specific Grav Ur 1.014 (1.001-1.035); Urobilinogen Urine 0.2 mg/dL (<2.0)
[2025-01-18 03:21] LABS: LDL Cholesterol Direct 41 mg/dL
[2025-01-18 03:36] LABS: Cholesterol 323 mg/dL (0-200)
[2025-01-18 04:11] LABS: Triglycerides 851 mg/dL (<150)
[2025-01-18 04:20] LABS: Glucose Point of Care 196 mg/dl (65-105)
--- NOTE | 2025-01-18 04:32 | ECG_ITS ---
Test Date: 2025-01-18 04:37:14 Measurements Intervals [place] Rate: 68 P: 59 CO: 164 QRS: 58 QRSD: 77 T: 79 QT: 402 QTc: 430 Interpretive Statements SINUS RHYTHM BORDERLINE ST-T WAVE ABNORMALITY- INF/HIGH LAT LEADS BASELINE ARTIFACT- I, II, III, AVR, AVL, AVF BORDERLINE ECG Compared to ECG 01/18/2025 01:08:17 NO SIGNIFICANT CHANGE Electronically Signed On 01-18-2025 07:35:49 CDT by Hugo Campbell D.O.
--- NOTE | 2025-01-18 05:54 | PC.NURSE ---
Went to medicate pt. Pt needed to use commode. Will medicate when pt is done.
[2025-01-18] MEDS: SODIUM CHLORIDE 0.9% IV 100 ML (06:05)
--- NOTE | 2025-01-18 06:44 | PM.IMHP ---
H&P: HPI History of Present Illness Date/Time: 01/18/25 06:44 Chief Complaint: Chest pain Narrative: This is a pleasant 59-year-old female with a history of hypertension, jsc-[id number] diabetes mellitus, dyslipidemia, nicotine vaping. She lives with her mother, experience distress which is the reason she does vaping, her father had CAD at a young age. The patient was doing her usual errands on 01/17/2025. She began to experience central chest pressure/tightness which got progressively worse. She did take anything nor did anything help relieve it. She experienced dizziness and bilateral arm pain as well. Eventually she presented to [facility]. For diabetes the patient takes Trulicity. She does not take anything for hypertension. She does not take any lipid-lowering medications as she has tried all of the statins and high-dose fish oil and they all make her feel very sick. ER evaluation demonstrated stable vital signs, WBC 12.9, hemoglobin A1c 10.1%, troponin 0.070, then 0.447, EKG without acute ST changes. Lipid panel pending, elevated serum glucose at 386, beta hydroxybutyrate negative, urinalysis positive for 3+ glucose. Quad viral screen negative. Heparin GTT started, cardiology consulted. Administered aspirin 324 mg p.o. x1, morphine 4 mg IV x1. Insulin 8 units subcutaneous x1, normal saline 1 L bolus. Review of Systems Review of Systems: All systems reviewed & are unremarkable except as noted in HPI and below (HPI) [facility] Past Medical History Medical History (Updated 01/18/25 @ 06:51 by Orly Nash MD) Encounter for wellness examination in adult BMI 26.0-26.9,adult Osteoarthritis of both hips moderate osteoarthritis of both hips noted on x-ray 01/06/2022. Chronic anxiety Chronic depression BMI 25.0-25.9,adult Overweight (BMI 25.0-29.9) Chronic midline low back pain without sciatica (~2014) Mild spondylosis at L5-S1 with facet arthropathy in the lower lumbar spine on CT of the abdomen and pelvis 01/12/2022. MRI of the lumbar spine on 09/01/2015 with annular bulge at L5-S1 with mild facet arthropathy. CT of the lumbar spine on 08/06/2024 reveals chronic pars defect at L5 with bulging disc at L3-L4-L4-L5 and L5-S1 with mild central stenosis and facet arthropathy with mild foraminal narrowing. Wellness examination Muscle cramps Constipation COVID-19 (05/08/22) tested positive 05/09/2022. Breast cancer screening by mammogram normal mammogram 04/22/2022. Normal mammogram 07/28/2023. UTI (urinary tract infection) Diverticulosis otherwise normal colonoscopy 11/08/2020 Fatty liver (~10/13/20) Stricture of ascending colon (~10/13/20) no stricture on colonoscopy 11/08/2020 Abdominal pain Acute non-recurrent maxillary sinusitis Palpitation Encounter for screening for other viral diseases Exposure to COVID-19 virus Headache Dyshidrotic eczema Ureteral stone Chronic rhinitis Obstructive sleep apnea of adult Irritable bowel syndrome with constipation Controlled diabetes mellitus type II without complication fasting glucose 134 with hemoglobin A1c 7.3 and urine microalbumin ratio of 5 with GFR 86 on 04/23/2024 Mixed hyperlipidemia Patient is intolerant to all statins, fenofibrate, Zetia, gemfibrozil .total cholesterol 361, HDL 47, triglycerides 441 with LDL not calculated and ratio 7.7 on 04/23/2024. High cholesterol Diabetes IBS (irritable bowel syndrome) Surgical History Surgical History History of 2 sections 1995, 2000 History of cholecystectomy Family History Family History Mother Diabetes mellitus Other Acute myocardial infarction High cholesterol Father Acute myocardial infarction Grandparent Diabetes mellitus Grandparent Lung disease Social History Social History (Updated 01/07/25 @ 09:07 by Anju Hogue [facility]) Years smoked: 20 Smoking status: Former smoker ( vapes nicotine) Tobacco type: e-cigarettes/vaping Smoking end date: 10/19/19 Additional smoking assessment comments: ABOUT 4 CIGARETTES/MONTH Alcohol intake: current Alcohol use details: 4-5/MONTH Substance use: never Substance use type: does not use Do You Feel Safe in your Home?: Yes Lack of Transportation: No Lack of Food: Never True Current Housing: I Have Housing Concerned About Future Housing: No Difficulty Paying Gas/Electric Bills: No Difficulty Paying for Meds: No Currently Unemployed: No Education: High School Diploma/GED Difficulty w/ Childcare or Family Care: No Living arrangements: with family Spiritual care concerns: No Meds Home Medications and Allergies Home Medications ?Medication ?Instructions ?Recorded ?Confirmed ?Type dulaglutide 0.75 mg/0.5 mL 0.75 mg (0.5 mL) subcut WEEKLY #2 07/31/24 01/17/25 Rx subcutaneous pen injector mL (Trulicity) Allergies Allergy/AdvReac Type Severity Reaction Status Date / Time [id number] Reductase Allergy Nausea and Verified 01/17/25 21:32 Inhibitor Vomiting ciprofloxacin AdvReac Mild nausea and Verified 01/17/25 21:32 vomitting aspirin AdvReac Nausea and Verified 01/17/25 21:32 Vomiting Vital Signs Vital Signs - 24 hr 01/17/25 21:44 01/17/25 21:47 01/17/25 21:48 Temperature 97.7 F Pulse Rate 80 81 Respiratory Rate 16 Blood Pressure 161/86 H Pulse Oximetry 99 99 Oxygen Delivery Room Air 01/17/25 22:03 01/17/25 22:45 01/17/25 22:46 Temperature 97.7 F Pulse Rate 92 79 82 Respiratory Rate 19 17 11 L Blood Pressure 161/86 H 144/70 H Pulse Oximetry 100 98 98 Oxygen Delivery 01/17/25 23:00 01/17/25 23:01 01/17/25 23:15 Temperature Pulse Rate 75 77 77 Respiratory Rate 15 Blood Pressure 134/75 142/83 H Pulse Oximetry 97 98 96 Oxygen Delivery 01/17/25 23:16 01/18/25 00:41 01/18/25 01:29 Temperature Pulse Rate 75 81 76 Respiratory Rate 11 L 13 13 Blood Pressure 150/90 H Pulse Oximetry 97 100 99 Oxygen Delivery 01/18/25 01:30 01/18/25 01:45 01/18/25 02:30 Temperature Pulse Rate 77 82 77 Respiratory Rate 12 17 14 Blood Pressure 140/85 Pulse Oximetry 99 98 98 Oxygen Delivery 01/18/25 02:31 01/18/25 03:00 01/18/25 03:01 Temperature Pulse Rate 77 88 84 Respiratory Rate 13 18 15 Blood Pressure 143/81 H Pulse Oximetry 99 99 100 Oxygen Delivery 01/18/25 03:15 01/18/25 03:16 01/18/25 03:30 Temperature Pulse Rate 84 80 82 Respiratory Rate 15 Blood Pressure 152/79 H 137/89 Pulse Oximetry 97 97 98 Oxygen Delivery 01/18/25 03:31 01/18/25 04:16 01/18/25 04:30 Temperature Pulse Rate 82 76 74 Respiratory Rate 22 H 9 L Blood Pressure 147/86 H Pulse Oximetry 97 98 99 Oxygen Delivery 01/18/25 04:45 01/18/25 04:46 01/18/25 05:00 Temperature Pulse Rate 76 73 78 Respiratory Rate 16 9 L 11 L Blood Pressure 141/87 H Pulse Oximetry 98 98 98 Oxygen Delivery 01/18/25 05:01 01/18/25 05:03 01/18/25 05:03 Temperature Pulse Rate 77 75 87 Respiratory Rate 20 13 14 Blood Pressure 121/109 H 138/83 138/83 Pulse Oximetry 99 98 98 Oxygen Delivery 01/18/25 05:15 01/18/25 05:16 01/18/25 05:30 Temperature Pulse Rate 79 81 77 Respiratory Rate 14 18 12 Blood Pressure 133/62 144/82 H Pulse Oximetry 99 98 98 Oxygen Delivery 01/18/25 06:10 Temperature Pulse Rate 75 Respiratory Rate 15 Blood Pressure Pulse Oximetry 99 Oxygen Delivery Exam Const: General: comfortable and no acute distress Eyes: Pupils: Equal, round and reactive pupils present Neck: Neck: supple Resp: Effort & Inspection: normal respiratory effort Auscultation: clear to auscultation bilaterally Cardio: Rate: regular rate Rhythm: regular rhythm GI: Inspection: non-distended GI Palp: Yes Soft to palpation : General: Yes bladder normal to palpation Neuro: Motor exam (neuro): 5/5 motor strength present throughout Sensory Exam: normal sensation Extrem: General: no edema H&P: Results Labs Labs: Short CBC 01/17/25 Range/Units 21:52 WBC 12.9 H (4.5-10.0) K/mm3 Hgb 14.1 (12.0-15.0) g/dL Hct 42.9 (37.0-47.0) % Plt Count 328 (150-375) k/mm3 BMP 01/17/25 21:52 Sodium 136 L Potassium 4.1 Chloride 101 Carbon Dioxide 19 L BUN 13 D Creatinine 0.57 L Glucose 386 H Calcium 9.6 Cardiac Enzymes 01/17/25 01/18/25 01/18/25 Range/Units 21:52 01:22 04:39 Troponin I 0.070 H* 0.447 H* D 1.180 H* D (0.000-0.034) ng/mL Liver Function 01/17/25 Range/Units 21:52 Total Bilirubin 0.6 (0.2-1.3) mg/dL AST 41 H (14-36) U/L ALT 44 H (6-35) U/L Alkaline Phosphatase 111 (38-126) U/L Albumin 4.6 (3.5-5.1) g/dL Urine 01/18/25 Range/Units 02:51 Urine Color Yellow (Yellow) Urine Appearance Clear (Clear) Urine pH 7.0 (5.0-9.0) Ur Specific [place] 1.014 (1.001-1.035) Urine Protein Negative (Negative) mg/dL Urine Glucose (UA) 3+ H (Negative) mg/dL Assessment and Plan Assessment and plan (1) Non-ST elevation [place] (NSTEMI): Code(s): I21.4 - Non-ST elevation (NSTEMI) myocardial infarction Status: Acute (2) Hyperglycemia due to diabetes mellitus: Code(s): E11.65 - Type 2 diabetes mellitus with hyperglycemia Status: Acute (3) Hemoglobin A1c greater than 9.0%: Code(s): R73.09 - Other abnormal glucose Status: Acute (4) Nicotine dependence: Code(s): F17.200 - Nicotine dependence, unspecified, uncomplicated Status: Acute Plan This is a pleasant 59-year-old female with a history of hypertension, uwa-bfnyrzz-udwgxprgk diabetes mellitus, dyslipidemia, nicotine vaping. She lives with her mother, experience distress which is the reason she does vaping, her father had CAD at a young age. The patient was doing her usual errands on 01/17/2025. She began to experience central chest pressure/tightness which got progressively worse. She did take anything nor did anything help relieve it. She experienced dizziness and bilateral arm pain as well. Eventually she presented to [facility]. For diabetes the patient takes Trulicity. She does not take anything for hypertension. She does not take any lipid-lowering medications as she has tried all of the statins and high-dose fish oil and they all make her feel very sick. ER evaluation demonstrated stable vital signs, WBC 12.9, hemoglobin A1c 10.1%, troponin 0.070, then 0.447, EKG without acute ST changes. Lipid panel pending, elevated serum glucose at 386, beta hydroxybutyrate negative, urinalysis positive for 3+ glucose. Quad viral screen negative. Heparin GTT started, cardiology consulted. Administered aspirin 324 mg p.o. x1, morphine 4 mg IV x1. Insulin 8 units subcutaneous x1, normal saline 1 L bolus. ----- Currently the patient is beginning to experience chest pain again. It was 3/10 at worst prior to arrival to the ER. Now it is 1/10. Administer morphine again. Continue heparin GTT. Cardiology to see in consultation. NPO. Continue to trend troponins. Start metoprolol low dose at 12.5mg po bid. Counseled extensively about the risk factor modifications of dyslipidemia, hypertension, weight loss, diabetes, nicotine abuse. ----- NPO. Saline lock IV. Patient wishes to be full code. SCDs. Heparin GTT Hospitalist MIPS Advance Care Plan I have confirmed that the patient's Advanced Care Plan is present, code status is documented, or surrogate decision maker is listed in patient medical record.: Yes Medication Reconciliation I have utilized all available resources to obtain, update and review the patients current medications (includes all prescriptions, OTC, herbals, cannabis, and nutritional supplements).: Yes
[2025-01-18 07:53] LABS: Hematocrit 41.4 % (37.0-47.0); Mean Corpuscular HGB Conc 31.4 g/dl (32-36); Mean Corpuscular Hemoglobin 26.2 pg (26-34); Mean Corpuscular Volume 83.3 fl (80-100); Mean Platelet Volume 10.8 fl (7.4-10.4); Platelet Count Result 300 k/mm3 (150-375); Red Blood Count 4.97 M/mm3 (4.2-5.4); Red Cell Distribution Width 13.7 % (11.5-14.5); White Blood Count 9.9 K/mm3 (4.5-10.0)
[2025-01-18 08:07] LABS: Anion Gap 12 mmol/L (4-12); Blood Urea Nitrogen 9 mg/dL (7-17); Carbon Dioxide 21 mmol/L (22-30); Chloride 104 mmol/L (98-107); Estimated CRCL calculation 86 ml/min; Estimated Glomerular Filt Rate > 60; Glucose 182 mg/dL (65-110); Magnesium 1.8 mg/dL (1.6-2.3); Potassium 3.6 mmol/L (3.4-5.0); Sodium 137 mmol/L (137-145)
[2025-01-18 08:14] LABS: Band Neutrophils Percent 3 % (0-6); Basophils Absolute Manual 0.29 K/mm3 (0.0-0.1); Basophils Percent Manual 3 % (0-1); Eosinophils Absolute Manual 0.59 K/mm3 (0.02-0.50); Eosinophils Percent Manual 6 % (0-4); Lymphocytes Absolute Manual 2.57 K/mm3 (1.1-4.5); Lymphocytes Percent Manual 26 % (18-44); Monocytes Absolute Manual 0.39 K/mm3 (0.1-0.90); Monocytes Percent Manual 4 % (3-9); Neutrophils Absolute Manual 6.03 K/mm3 (1.7-7.2); Neutrophils Percent Manual 58 % (46-73); Platelet Estimate Adequate (Adequate); Total Cells Counted 100
[2025-01-18 08:15] LABS: Atypical Lymphocytes Present; Schistocytes None Seen; Smudge Cells FEW
[2025-01-18 08:42] LABS: Procalcitonin 0.1 ng/mL
--- NOTE | 2025-01-18 09:10 | P.PNIM_ITS ---
Progress Note: A&P Assessment and Plan (1) Non-ST elevation [place] (NSTEMI): Code(s): I21.4 - Non-ST elevation (NSTEMI) myocardial infarction Status: Acute (2) Hyperglycemia due to diabetes mellitus: Code(s): E11.65 - Type 2 diabetes mellitus with hyperglycemia Status: Acute (3) Hemoglobin A1c greater than 9.0%: Code(s): R73.09 - Other abnormal glucose Status: Acute (4) Nicotine dependence: Code(s): F17.200 - Nicotine dependence, unspecified, uncomplicated Status: Acute Plan This is a pleasant 59-year-old female with a history of hypertension, xsn-gabsvqk-ngkanfqmd diabetes mellitus, dyslipidemia, nicotine vaping. She lives with her mother, experience distress which is the reason she does vaping, her father had CAD at a young age. The patient was doing her usual errands on 01/17/2025. She began to experience central chest pressure/tightness which got progressively worse. She did take anything nor did anything help relieve it. She experienced dizziness and bilateral arm pain as well. Eventually she presented to [place] [facility]. For diabetes the patient takes Trulicity. She does not take anything for hypertension. She does not take any lipid-lowering medications as she has tried all of the statins and high-dose fish oil and they all make her feel very sick. ER evaluation demonstrated stable vital signs, WBC 12.9, hemoglobin A1c 10.1%, troponin 0.070, then 0.447 followed by 1.180, EKG without acute ST changes. Lipid panel pending, elevated serum glucose at 386, beta hydroxybutyrate negative, urinalysis positive for 3+ glucose. Quad viral screen negative. Chest x-ray with no acute cardiopulmonary pathology. Non-STEMI. Heparin GTT started, cardiology consulted. Administered aspirin 324 mg p.o. x1, morphine 4 mg IV x1. Insulin 8 units subcutaneous x1, normal saline 1 L bolus. Metoprolol b.i.d. started. Cardiology evaluation pending. continue aspirin 81 mg daily. Intolerant to statins. She will need to be evaluated for PCSK9 inhibitor use as an outpatient. Patient is planned for cardiac catheterization in a.m. Hypertension Gxb-qpeoarv-ptjbzjapl diabetes mellitus A1c came back at 10.1 last in April 2024 was 7.3 basal bolus insulin regimen for now Dyslipidemia LDL 41 however triglycerides 851 intolerant to statin as well as fibrates Nicotine vaping Code status full code DVT prophylaxis on heparin GTT Subjective Date/time seen: 01/18/25 09:10 Interval history: No overnight events. Chart reviewed. Presented with chest pain. Intolerant to statins and also fenofibrate Review of Systems Review of Systems: All systems reviewed & are unremarkable except as noted in HPI and below (HPI) Exam Narrative: GENERAL: Well-appearing, well-nourished, and in no acute distress. HEAD: Normocephalic, atraumatic. EYES: Non injected, non icteric ENT: Nares clear, no rhinorrhea or epistaxis. NECK: Supple. CHEST: Speaking in full sentences. No respiratory distress. HEART: Regular rate and rhythm. . ABDOMEN: Soft, nondistended. EXTREMITIES: Normal range of motion. No lower extremity edema. SKIN: Warm, dry, no rash. NEURO: No focal deficits. Alert and oriented x3. PSYCH: Normal mood and affect. Objective Data Vital Signs Vital Signs: Vital Signs - 24 hr 01/17/25 21:44 01/17/25 21:47 01/17/25 21:48 Temperature 97.7 F Pulse Rate 80 81 Respiratory Rate 16 Blood Pressure 161/86 H Pulse Oximetry 99 99 Oxygen Delivery Room Air 01/17/25 22:03 01/17/25 22:45 01/17/25 22:46 Temperature 97.7 F Pulse Rate 92 79 82 Respiratory Rate 19 17 11 L Blood Pressure 161/86 H 144/70 H Pulse Oximetry 100 98 98 Oxygen Delivery 01/17/25 23:00 01/17/25 23:01 01/17/25 23:15 Temperature Pulse Rate 75 77 77 Respiratory Rate 15 Blood Pressure 134/75 142/83 H Pulse Oximetry 97 98 96 Oxygen Delivery 01/17/25 23:16 01/18/25 00:41 01/18/25 01:29 Temperature Pulse Rate 75 81 76 Respiratory Rate 11 L 13 13 Blood Pressure 150/90 H Pulse Oximetry 97 100 99 Oxygen Delivery 01/18/25 01:30 01/18/25 01:45 01/18/25 02:30 Temperature Pulse Rate 77 82 77 Respiratory Rate 12 17 14 Blood Pressure 140/85 Pulse Oximetry 99 98 98 Oxygen Delivery 01/18/25 02:31 01/18/25 03:00 01/18/25 03:01 Temperature Pulse Rate 77 88 84 Respiratory Rate 13 18 15 Blood Pressure 143/81 H Pulse Oximetry 99 99 100 Oxygen Delivery 01/18/25 03:15 01/18/25 03:16 01/18/25 03:30 Temperature Pulse Rate 84 80 82 Respiratory Rate 15 Blood Pressure 152/79 H 137/89 Pulse Oximetry 97 97 98 Oxygen Delivery 01/18/25 03:31 01/18/25 04:16 01/18/25 04:30 Temperature Pulse Rate 82 76 74 Respiratory Rate 22 H 9 L Blood Pressure 147/86 H Pulse Oximetry 97 98 99 Oxygen Delivery 01/18/25 04:45 01/18/25 04:46 01/18/25 05:00 Temperature Pulse Rate 76 73 78 Respiratory Rate 16 9 L 11 L Blood Pressure 141/87 H Pulse Oximetry 98 98 98 Oxygen Delivery 01/18/25 05:01 01/18/25 05:03 01/18/25 05:03 Temperature Pulse Rate 77 75 87 Respiratory Rate 20 13 14 Blood Pressure 121/109 H 138/83 138/83 Pulse Oximetry 99 98 98 Oxygen Delivery 01/18/25 05:15 01/18/25 05:16 01/18/25 05:30 Temperature Pulse Rate 79 81 77 Respiratory Rate 14 18 12 Blood Pressure 133/62 144/82 H Pulse Oximetry 99 98 98 Oxygen Delivery 01/18/25 06:10 Temperature Pulse Rate 75 Respiratory Rate 15 Blood Pressure Pulse Oximetry 99 Oxygen Delivery Intake/Output Intake/Output: Intake & Output 01/15/25 01/16/25 01/17/25 01/18/25 23:59 23:59 23:59 23:59 Intake Total 1100 Balance 1100 Meds/Results Medications: Active Medications Generic Name Dose Route Start Last Admin Trade Name Freq PRN Reason Stop Dose Admin Acetaminophen 650 mg 01/18/25 01:31 Acetaminophen 325 Mg Tablet PO Q4H PRN Mild Pain (1-3) or Fever Dextrose 12.5 gm 01/18/25 01:31 Dextrose 50% 25 Gm/50 Ml Syringe IV PUSH PRN PRN Hypoglycemia Protocol Glucagon 1 mg 01/18/25 01:31 Glucagon For Inj 1 Mg Vial IM PRN PRN Hypoglycemia Protocol Glucose 15 gm 01/18/25 01:31 Glucose Oral Gel 15 Gm Of Glucse In 37.5 Gm Tube PO PRN PRN Hypoglycemia Protocol Heparin Sodium (Porcine) 4,000 units 04/06/25 01:29 01/18/25 02:09 Heparin Sodium 5,000 Units/Ml Vial IV PUSH 4,000 units PRN PRN Administration aPTT less than 55 seconds Heparin Sodium (Porcine) 2,500 units 01/18/25 01:29 Heparin Sodium 5,000 Units/Ml Vial IV PUSH PRN PRN aPTT 55 - 70 seconds Heparin Sodium/Dextrose 25,000 units in 250 mls @ 7 mls/hr 01/18/25 01:30 01/18/25 02:02 Heparin Sodium/D5w 100 Units/Ml IV CONT 700 units/hr .Q24H ROBERTA 7 mls/hr Administration Protocol 700 UNITS/HR Dextrose 1,000 mls @ 100 mls/hr 01/18/25 01:31 Dextrose 5% 1,000 Ml IVPB PRN PRN Hypoglycemia Protocol Insulin Aspart 2 - 5 units 01/18/25 08:00 Insulin Aspart (*Bkc) 100 Units/Ml SUB-Q TIDWM [facility] Protocol Insulin Aspart 1 - 2 units 01/18/25 21:00 Insulin Aspart (*Bkc) 100 Units/Ml SUB-Q HS [facility] Protocol Metoprolol Tartrate 12.5 mg 01/18/25 07:00 Metoprolol Tartrate 12.5 Mg Tablet PO Q12HR [facility] Nitroglycerin 0.4 mg 01/18/25 01:31 Nitroglycerin Sl 0.4 Mg Tablet SUBLINGUAL Q5MIN PRN Chest Pain Ondansetron HCl 4 mg 01/18/25 01:31 Ondansetron Inj 4 Mg/2 Ml Vial IV PUSH Q4H PRN Nausea Radiology Results: ITS Impressions Chest X-Ray 01/18/25 06:48 IMPRESSION: No acute cardiopulmonary pathology. Labs Labs: Laboratory Results - last 24 hr 01/17/25 01/17/25 01/17/25 21:50 21:52 23:09 WBC 12.9 H RBC 5.27 Hgb 14.1 Hct 42.9 MCV 81.4 MCH 26.8 MCHC 32.9 RDW 13.6 Plt Count 328 MPV 11.3 H Immature Gran % (Auto) 0.3 Neut % (Auto) 45.2 L Lymph % (Auto) 45.6 H [place] % (Auto) 6.2 Eos % (Auto) 1.6 Baso % (Auto) 1.1 Lymph # (Auto) 5.86 H [place] # (Auto) 0.8 H Eos # (Auto) 0.2 Baso # (Auto) 0.1 Abs Immat Gran (auto) 0.04 H Absolute Neuts (auto) 5.8 Absolute Nucleated RBC 0.000 Total Counted Neutrophils % (Manual) Band Neutrophils % Lymphocytes % (Manual) Monocytes % (Manual) Eosinophils % (Manual) Basophils % (Manual) Nucleated RBC % 0.0 Abs Neuts (Manual) Abs Lymphs (Manual) Abs Monocytes (Manual) Absolute Eos (Manual) Abs Basophils (Manual) Atypical Lymphocytes Smudge Cells Platelet Estimate Schistocytes PT 11.7 INR 0.8 APTT 24.9 Sodium 136 L Potassium 4.1 Chloride 101 Carbon Dioxide 19 L Anion Gap 16 H BUN 13 D Creatinine 0.57 L Estim Creat Clear Calc 83 Estimated GFR > 60 Glucose 386 H POC Capillary Glucose Hemoglobin A1c 10.1 H Calcium 9.6 Magnesium Total Bilirubin 0.6 AST 41 H ALT 44 H Alkaline Phosphatase 111 Troponin I 0.070 H* Total Protein 8.0 Albumin 4.6 Triglycerides Cholesterol LDL Cholesterol Direct HDL Direct Lipase 243 Beta-Hydroxybutyrate/Acetoacetate Procalcitonin Urine Color Urine Appearance Urine pH Ur Specific [place] Urine Protein Urine Glucose (UA) Urine Ketones Ur Blood (Man) Urine Nitrate Urine Bilirubin Urine Urobilinogen Leukocyte Esterase Rfl Influenza A (RT-PCR) Negative Influenza B (RT-PCR) Negative RSV (RT-PCR) Negative SARS-CoV-2 RNA (RT-PCR) Negative Group A Strep (PCR) Not detected 01/18/25 01/18/25 01/18/25 01:12 01:22 02:51 WBC RBC Hgb Hct MCV MCH MCHC RDW Plt Count MPV Immature Gran % (Auto) Neut % (Auto) Lymph % (Auto) [place] % (Auto) Eos % (Auto) Baso % (Auto) Lymph # (Auto) [place] # (Auto) Eos # (Auto) Baso # (Auto) Abs Immat Gran (auto) Absolute Neuts (auto) Absolute Nucleated RBC Total Counted Neutrophils % (Manual) Band Neutrophils % Lymphocytes % (Manual) Monocytes % (Manual) Eosinophils % (Manual) Basophils % (Manual) Nucleated RBC % Abs Neuts (Manual) Abs Lymphs (Manual) Abs Monocytes (Manual) Absolute Eos (Manual) Abs Basophils (Manual) Atypical Lymphocytes Smudge Cells Platelet Estimate Schistocytes PT INR APTT Sodium Potassium Chloride Carbon Dioxide Anion Gap BUN Creatinine Estim Creat Clear Calc Estimated GFR Glucose POC Capillary Glucose Hemoglobin A1c Calcium Magnesium Total Bilirubin AST ALT Alkaline Phosphatase Troponin I 0.447 H* D Total Protein Albumin Triglycerides 851 H Cholesterol 323 H LDL Cholesterol Direct 41 HDL Direct TNP Lipase Beta-Hydroxybutyrate/Acetoacetate 0.11 Procalcitonin Urine Color Yellow Urine Appearance Clear Urine pH 7.0 Ur Specific [place] 1.014 Urine Protein Negative Urine Glucose (UA) 3+ H Urine Ketones Negative Ur Blood (Man) Negative Urine Nitrate Negative Urine Bilirubin Negative Urine Urobilinogen 0.2 Leukocyte Esterase Rfl Negative Influenza A (RT-PCR) Influenza B (RT-PCR) RSV (RT-PCR) SARS-CoV-2 RNA (RT-PCR) Group A Strep (PCR) 01/18/25 01/18/25 01/18/25 04:17 04:39 07:48 WBC 9.9 RBC 4.97 Hgb 13.0 Hct 41.4 MCV 83.3 MCH 26.2 MCHC 31.4 L RDW 13.7 Plt Count 300 MPV 10.8 H Immature Gran % (Auto) Not Reportable Neut % (Auto) Not Reportable Lymph % (Auto) Not Reportable [place] % (Auto) Not Reportable Eos % (Auto) Not Reportable Baso % (Auto) Not Reportable Lymph # (Auto) Not Reportable [place] # (Auto) Not Reportable Eos # (Auto) Not Reportable Baso # (Auto) Not Reportable Abs Immat Gran (auto) Not Reportable Absolute Neuts (auto) Not Reportable Absolute Nucleated RBC Not Reportable Total Counted 100 Neutrophils % (Manual) 58 Band Neutrophils % 3 Lymphocytes % (Manual) 26 Monocytes % (Manual) 4 Eosinophils % (Manual) 6 H Basophils % (Manual) 3 H Nucleated RBC % Not Reportable Abs Neuts (Manual) 6.03 Abs Lymphs (Manual) 2.57 Abs Monocytes (Manual) 0.39 Absolute Eos (Manual) 0.59 H Abs Basophils (Manual) 0.29 H Atypical Lymphocytes Present Smudge Cells Few Platelet Estimate Adequate Schistocytes None seen PT INR APTT Sodium 137 Potassium 3.6 Chloride 104 Carbon Dioxide 21 L Anion Gap 12 BUN 9 Creatinine 0.55 L Estim Creat Clear Calc 86 Estimated GFR > 60 Glucose 182 H POC Capillary Glucose 196 H Hemoglobin A1c Calcium 9.0 Magnesium 1.8 Total Bilirubin AST ALT Alkaline Phosphatase Troponin I 1.180 H* D Total Protein Albumin Triglycerides Cholesterol LDL Cholesterol Direct HDL Direct Lipase Beta-Hydroxybutyrate/Acetoacetate Procalcitonin 0.1 Urine Color Urine Appearance Urine pH Ur Specific [place] Urine Protein Urine Glucose (UA) Urine Ketones Ur Blood (Man) Urine Nitrate Urine Bilirubin Urine Urobilinogen Leukocyte Esterase Rfl Influenza A (RT-PCR) Influenza B (RT-PCR) RSV (RT-PCR) SARS-CoV-2 RNA (RT-PCR) Group A Strep (PCR)
--- NOTE | 2025-01-18 10:05 | ADMGEN ---
This patient, Li Holman, was admitted to IMU Room 209-01. Patient/family oriented to hospital policies and general routines including ID bracelet, bed and alarms, visiting hours, pain management, procedures, bathroom and other care routines, personal items, smoking policy, room service/diet, and visiting hours. Son in room. Hep drip verified at 7/hr Information on how to activate the Rapid Response Team has been discussed. Patient/Family are encouraged to report perceived risks to care and to ask questions if they do not understand what they are told or what they should do.
--- NOTE | 2025-01-18 10:17 | P.CONCA_ITS ---
Assessment and Plan Assessment and plan (1) Non-ST elevation MN (NSTEMI): Code(s): I21.4 - Non-ST elevation (NSTEMI) myocardial infarction Status: Acute Plan This is a 59-year-old lady with longstanding diabetes and dyslipidemia presenting with non ST elevation MN. She is being treated appropriately with aspirin heparin and beta-sindhu. She is not tolerant of statins. She should be scheduled for coronary angiography in this setting. I explained the procedure in detail to the patient as well as the risks involved. She understands this and is agreeable to proceed. Obviously further recommendations will be pending those findings. We do need to attempt to get her insurance to approve PCSK9 inhibitor since we are no longer using it for primary prevention. Thank you for asking me to see this nice lady in consultation Marc Mohr MD [facility] History of Present Illness History of Present Illness Consult date/time: 01/18/25 10:17 Reason For Visit: NSTEMI, Heart score 5; hyperglycemia Narrative: This is a very pleasant 59-year-old lady I am seeing at the request of the hospitalist because of non ST elevation MN. The patient is unknown to me prior to this consultation and came to the hospital yesterday evening because of chest pain. She says this symptom began yesterday while she was walking into a store. She was feeling unwell with some central chest discomfort that was very mild but then radiated into both arms and was quite severe in her elbows. It waxed and waned during the afternoon when it was worse at was associated with the sense of diaphoresis. This symptom persisted but waxed and waned most of the day. She called her daughter who is a registered nurse who advised her to call an ambulance and come to the hospital. In the emergency room she was evaluated electrocardiograms which looked essentially benign she has a trivial amount of nonspecific ST segment depression in the inferior leads but no obvious current of injury. Her troponin level was initially just out of normal range and has risen to 1.8. She says that she still has some very mild residual chest discomfort but appears to be otherwise comfortable and does not offer any other complaints this morning. She has no previous history of coronary disease she does remember being referred to a track broom operator for an evaluation in the past where a stress test was done she can not remember when that was done or who her doctor was but she recalls that there were no significant abnormalities identified. She sees her primary care physician primarily for management of diabetes. She denies any knowledge of hypertension. She is a previous smoker who now out vapes. She does have significant dyslipidemia and reports to be intolerant of multiple statins that have been tried in the past. She does recall that PCSK9 inhibitor was a discussed as an alternative in the past but her insurance would not provide coverage for it. She works at the [employer]. She reports being under a lot of stress lately because of widespread [employer] layoffs. Review of Systems 2 Constitutional: Constitutional: Reports no additional constitutional complaints Eyes: Eyes: Reports no additional eye complaints ENT: Reports system reviewed and no additional complaints, except as documented Cardiovascular: Cardiovascular: Reports as per HPI Respiratory: Respiratory: Reports as per HPI Gastrointestinal: Gastrointestinal: Reports no additional gastrointestinal complaints Musculoskeletal: Musculoskeletal: Reports no additional musculoskeletal complaints Integumentary/Breasts: Skin/Breast: Reports system reviewed and no additional complaints, except as docu Neurologic: Reports system reviewed and no additional complaints, except as documented Endocrine: Endocrine: Reports as per HPI Hematologic/Lymphatic: Hematologic/Lymphatic: Reports no additional hematologic/lymphatic complaints Allergic/Immunologic: Allergic/Immunologic: Reports no additional allergic/immunologic complaints [facility] Past Medical History Medical History (Updated 01/18/25 @ 06:51 by Orly Nash MD) Encounter for wellness examination in adult BMI 26.0-26.9,adult Osteoarthritis of both hips moderate osteoarthritis of both hips noted on x-ray 01/06/2022. Chronic anxiety Chronic depression BMI 25.0-25.9,adult Overweight (BMI 25.0-29.9) Chronic midline low back pain without sciatica (~2014) Mild spondylosis at L5-S1 with facet arthropathy in the lower lumbar spine on CT of the abdomen and pelvis 01/12/2022. MRI of the lumbar spine on 09/01/2015 with annular bulge at L5-S1 with mild facet arthropathy. CT of the lumbar spine on 08/06/2024 reveals chronic pars defect at L5 with bulging disc at L3-L4-L4-L5 and L5-S1 with mild central stenosis and facet arthropathy with mild foraminal narrowing. Wellness examination Muscle cramps Constipation COVID-19 (05/08/22) tested positive 05/09/2022. Breast cancer screening by mammogram normal mammogram 04/22/2022. Normal mammogram 07/28/2023. UTI (urinary tract infection) Diverticulosis otherwise normal colonoscopy 11/08/2020 Fatty liver (~10/13/20) Stricture of ascending colon (~10/13/20) no stricture on colonoscopy 11/08/2020 Abdominal pain Acute non-recurrent maxillary sinusitis Palpitation Encounter for screening for other viral diseases Exposure to COVID-19 virus Headache Dyshidrotic eczema Ureteral stone Chronic rhinitis Obstructive sleep apnea of adult Irritable bowel syndrome with constipation Controlled diabetes mellitus type II without complication fasting glucose 134 with hemoglobin A1c 7.3 and urine microalbumin ratio of 5 with GFR 86 on 04/23/2024 Mixed hyperlipidemia Patient is intolerant to all statins, fenofibrate, Zetia, gemfibrozil .total cholesterol 361, HDL 47, triglycerides 441 with LDL not calculated and ratio 7.7 on 04/23/2024. High cholesterol Diabetes IBS (irritable bowel syndrome) Surgical History Surgical History History of 2 sections 1995, 2000 History of cholecystectomy Family History Family History Mother Diabetes mellitus Other Acute myocardial infarction High cholesterol Father Acute myocardial infarction Grandparent Diabetes mellitus Grandparent Lung disease Social History Social History (Updated 01/07/25 @ 09:07 by Anju Hogue, [facility]) Years smoked: 20 Smoking status: Current every day smoker Tobacco type: e-cigarettes/vaping Second hand tobacco smoke exposure: Yes Smoking end date: 10/19/19 Additional smoking assessment comments: few vape pods/day Alcohol intake: current Drinks per week: 2 Alcohol use details: 4-5/MONTH Substance use: never Substance use type: does not use Do You Feel Safe in your Home?: Yes Lack of Transportation: No Lack of Food: Never True Current Housing: I Have Housing Concerned About Future Housing: No Difficulty Paying Gas/Electric Bills: No Difficulty Paying for Meds: No Currently Unemployed: No Education: High School Diploma/GED Difficulty w/ Childcare or Family Care: No Living arrangements: with family Spiritual care concerns: No Meds Home Medications and Allergies Home Medications ?Medication ?Instructions ?Recorded ?Confirmed ?Type dulaglutide 0.75 mg/0.5 mL 0.75 mg (0.5 mL) subcut WEEKLY #2 07/31/24 01/17/25 Rx subcutaneous pen injector mL (Trulicity) Allergies Allergy/AdvReac Type Severity Reaction Status Date / Time [id number] Reductase Allergy Nausea and Verified 01/17/25 21:32 Inhibitor Vomiting ciprofloxacin AdvReac Mild nausea and Verified 01/17/25 21:32 vomitting aspirin AdvReac Nausea and Verified 01/17/25 21:32 Vomiting Vital Signs Vital Signs - 24 hr 01/17/25 21:44 01/17/25 21:47 01/17/25 21:48 Temperature 36.5 C Pulse Rate 80 81 Respiratory Rate 16 Blood Pressure 161/86 H Pulse Oximetry 99 99 Oxygen Delivery Room Air 01/17/25 22:03 01/17/25 22:45 01/17/25 22:46 Temperature 36.5 C Pulse Rate 92 79 82 Respiratory Rate 19 17 11 L Blood Pressure 161/86 H 144/70 H Pulse Oximetry 100 98 98 Oxygen Delivery 01/17/25 23:00 01/17/25 23:01 01/17/25 23:15 Temperature Pulse Rate 75 77 77 Respiratory Rate 15 Blood Pressure 134/75 142/83 H Pulse Oximetry 97 98 96 Oxygen Delivery 01/17/25 23:16 01/18/25 00:41 01/18/25 01:29 Temperature Pulse Rate 75 81 76 Respiratory Rate 11 L 13 13 Blood Pressure 150/90 H Pulse Oximetry 97 100 99 Oxygen Delivery 01/18/25 01:30 01/18/25 01:45 01/18/25 02:30 Temperature Pulse Rate 77 82 77 Respiratory Rate 12 17 14 Blood Pressure 140/85 Pulse Oximetry 99 98 98 Oxygen Delivery 01/18/25 02:31 01/18/25 03:00 01/18/25 03:01 Temperature Pulse Rate 77 88 84 Respiratory Rate 13 18 15 Blood Pressure 143/81 H Pulse Oximetry 99 99 100 Oxygen Delivery 01/18/25 03:15 01/18/25 03:16 01/18/25 03:30 Temperature Pulse Rate 84 80 82 Respiratory Rate 15 Blood Pressure 152/79 H 137/89 Pulse Oximetry 97 97 98 Oxygen Delivery 01/18/25 03:31 01/18/25 04:16 01/18/25 04:30 Temperature Pulse Rate 82 76 74 Respiratory Rate 22 H 9 L Blood Pressure 147/86 H Pulse Oximetry 97 98 99 Oxygen Delivery 01/18/25 04:45 01/18/25 04:46 01/18/25 05:00 Temperature Pulse Rate 76 73 78 Respiratory Rate 16 9 L 11 L Blood Pressure 141/87 H Pulse Oximetry 98 98 98 Oxygen Delivery 01/18/25 05:01 01/18/25 05:03 01/18/25 05:03 Temperature Pulse Rate 77 75 87 Respiratory Rate 20 13 14 Blood Pressure 121/109 H 138/83 138/83 Pulse Oximetry 99 98 98 Oxygen Delivery 01/18/25 05:15 01/18/25 05:16 01/18/25 05:30 Temperature Pulse Rate 79 81 77 Respiratory Rate 14 18 12 Blood Pressure 133/62 144/82 H Pulse Oximetry 99 98 98 Oxygen Delivery 01/18/25 06:10 01/18/25 07:30 01/18/25 08:40 Temperature Pulse Rate 75 80 74 Respiratory Rate 15 16 16 Blood Pressure 150/82 H 150/85 H Pulse Oximetry 99 99 98 Oxygen Delivery 01/18/25 09:19 01/18/25 09:24 Temperature 36.5 C Pulse Rate 69 Respiratory Rate 12 Blood Pressure 141/73 H 140/80 Pulse Oximetry 99 Oxygen Delivery Exam 2 Const: General: comfortable and no acute distress Other: Pleasant lady appearing her stated age reports very mild residual discomfort in the center of the chest but appears to be quite comfortable HENMT: Mouth: Yes moist mucous membranes Eyes: Sclera: sclerae normal Neck: Neck: supple and no JVD Other: Normal carotid pulses bilaterally, no bruits are audible Resp: Effort & Inspection: normal respiratory effort Auscultation: clear to auscultation bilaterally Cardio: Rate: regular rate Rhythm: regular rhythm Other: No murmur no gallop GI: GI Palp: Yes Soft to palpation Auscultation: normal bowel sounds Skin: General skin exam: normal color Neuro: Other: Alert and oriented x3 Extrem: General: normal to inspection Other: No edema, good perfusion Results Labs and Meds 01/18/25 07:48 01/18/25 07:48 Lab results: Cardiac Enzymes 01/17/25 01/18/25 01/18/25 Range/Units 21:52 01:22 04:39 AST 41 H (14-36) U/L Troponin I 0.070 H* 0.447 H* D 1.180 H* D (0.000-0.034) ng/mL 01/18/25 Range/Units 07:48 AST (14-36) U/L Troponin I 1.850 H* D (0.000-0.034) ng/mL Coagulation 01/17/25 Range/Units 21:52 PT 11.7 (11.1-14.7) Seconds APTT 24.9 (22.3-36.8) Seconds Lipids 01/18/25 Range/Units 01:12 Triglycerides 851 H (<150) mg/dL Cholesterol 323 H (0-200) mg/dL CBC 01/17/25 01/18/25 Range/Units 21:52 07:48 WBC 12.9 H 9.9 (4.5-10.0) K/mm3 RBC 5.27 4.97 (4.2-5.4) M/mm3 Hgb 14.1 13.0 (12.0-15.0) g/dL Hct 42.9 41.4 (37.0-47.0) % Plt Count 328 300 (150-375) k/mm3 Lymph # (Auto) 5.86 H Not Reportable (0.9-3.2) K/mm3 Winn # (Auto) 0.8 H Not Reportable (0.1-0.6) K/mm3 Eos # (Auto) 0.2 Not Reportable (0-0.3) K/mm3 Baso # (Auto) 0.1 Not Reportable (0.0-0.1) K/mm3 Comprehensive Metabolic Panel 01/17/25 01/18/25 Range/Units 21:52 07:48 Sodium 136 L 137 (137-145) mmol/L Potassium 4.1 3.6 (3.4-5.0) mmol/L Chloride 101 104 (98-107) mmol/L Carbon Dioxide 19 L 21 L (22-30) mmol/L BUN 13 D 9 (7-17) mg/dL Creatinine 0.57 L 0.55 L (0.7-1.0) mg/dL Glucose 386 H 182 H (65-110) mg/dL Calcium 9.6 9.0 (8.4-10.2) mg/dL AST 41 H (14-36) U/L ALT 44 H (6-35) U/L Alkaline Phosphatase 111 (38-126) U/L Total Protein 8.0 (6.3-8.2) g/dL Albumin 4.6 (3.5-5.1) g/dL Intake and Output 01/17/25 01/18/25 01/18/25 23:59 07:59 15:59 Intake Total 1100 Balance 1100 Intake: IV 1100 Sodium Chloride 0.9% IV 100 ml 100 @ 0 mls/hr .ROUTE .STK-MED ONE Rx#:[id number] Sodium Chloride 0.9% IV 1,000 1000 ml @ 999 mls/hr IV CONT .Q1H1M STA Rx#:[id number] Patient Weight 01/18/25 23:59 Weight 68.9 kg
[2025-01-18] MEDS: METOPROLOL TARTRATE 12.5 MG TABLET PO ×2 (10:43→20:43)
[2025-01-18 11:03] LABS: Partial Thromboplastin Time 41.9 Seconds (22.3-36.8)
[2025-01-18 13:48] LABS: Glucose Point of Care 333 mg/dl (65-105)
[2025-01-18] MEDS: INSULIN ASPART (*BKC) 100 UNITS/ML SUB-Q ×3 (14:12→17:00)
[2025-01-18] MEDS: ACETAMINOPHEN 325 MG TABLET 650 MG PO ×2 (15:45→20:49)
[2025-01-18 16:18] LABS: Partial Thromboplastin Time 66.9 Seconds (22.3-36.8)
[2025-01-18] MEDS: HEPARIN SODIUM 5,000 UNITS/ML VIAL 2500 UNITS IV PUSH (17:00)
[2025-01-18 17:09] LABS: Glucose Point of Care 228 mg/dl (65-105)
[2025-01-18 23:10] LABS: Partial Thromboplastin Time 105.6 Seconds (22.3-36.8)
[2025-01-19] VITALS (32 sets, daily range): BP systolic 80–142; BP diastolic 51–86; PULSE 77–115; RESP 12–21; TEMP 36.7–36.9; O2SAT 88–99
--- NOTE | 2025-01-19 | ECHO_ITS ---
Patient Info Name: Li Holman Age: 59 years : 1965 Gender: Female Ht: 63 in Wt: 250 lbs BSA: 2.31 m2 HR: 109 bpm BP: 118 / 64 mmHg Technical Quality: Fair Exam Date: 01/19/2025 11:19 AM Exam Location: Echo Lab Patient Status: Inpatient Admit Date: 01/18/2025 Staff Ordering Physician: Travis Velez MD ([facility]) Flight Purser: Kathy Abdi RDCS Attending Provider: Orly Nash MD Exam Type: CA echo dop color flow w con Study Info Indications - NSTEMI Complete two-dimensional, color flow and Doppler transthoracic echocardiogram is performed with contrast to opacify the left ventricle and to improve the deliniation of the left ventricle endocardial borders. Contrast/Agitated Saline Contrast/Ag. Saline: Definity Amount: 2.00 ml Existing IV Access: Yes IV Access Condition: patent with no signs of infiltration Summary 1. The left ventricle is normal in size and systolic function. Left ventricular ejection fraction is visually estimated to be 60-65%. There are no regional wall motion abnormalities. 2. The right ventricle is normal in size and systolic function. 3. There are no pericardial effusions in the available views. Left Ventricle The left ventricle is normal in size and systolic function. Left ventricular ejection fraction is visually estimated to be 60-65%. There are no regional wall motion abnormalities. Right Ventricle The right ventricle is normal in size and systolic function. Left Atria The left atrium is normal size. Right Atria The right atrium is normal size. Atrial Septum The atrial septum is not well visualized. Aortic Valve The aortic valve is not well visualized. Pulmonic Valve The pulmonic valve is not well visualized. There is no color Doppler evidence of pulmonic valve regurgitation. Mitral Valve The mitral valve is normal. There is no mitral regurgitation. Tricuspid Valve The tricuspid valve is normal. There is no tricuspid regurgitation. Pericardium/Pleural There are no pericardial effusions in the available views. Inferior Vena Cava Inferior vena cava is not well visualized. Aorta The aortic root at the level of the sinus of Valsalva measures 2.5 cm in diameter. Left Ventricular Outflow Tract Name Value Normal LVOT 2D LVOT Diameter 1.60 cm LVOT Doppler LVOT Peak Gradient 3 mmHg LVOT Mean Gradient 2 mmHg LVOT VTI 14.49 cm LVOT VTI/AV VTI Ratio 0.64 LVOT Stroke Volume 29.09 ml LVOT CO 8.05 l/min LVOT CI 3.48 L/min/m2 Pulmonic Valve Name Value Normal PV Doppler PV Peak Gradient 11 mmHg Mitral Valve Name Value Normal MV Doppler MV Decel [place] 526.77 cm/s2 MV PHT 0 s MV Area (PHT) 6.86 cm2 4.00-5.00 MV Diastolic Function MV E Peak Velocity 58.25 cm/s MV A Peak Velocity 92.70 cm/s MV E/A 0.63 MV Decel Time 0 s MV Annular TDI MV E/e' (Septal) 9.56 <=8.00 MV E/e' (Lateral) 9.01 <=8.00 MV E/e' (Average) 9.28 Aorta Name Value Normal Ascending Aorta Ao Root Diameter (MM) 2.97 cm Ao Root Diam Index (MM) 1.29 cm/m2 Aortic Valve Name Value Normal AV Doppler AV Peak Velocity 127.90 cm/s AV Peak Gradient 7 mmHg AV Mean Gradient 4 mmHg AV VTI 22.50 cm AV Area (Cont Eq VTI) 1.29 cm2 >=3.00 AV Area (Cont Eq Kyler) 1.36 cm2 AV Regurgitation 2D LVOT Area 2.01 cm2 Ventricles Name Value Normal LV Dimensions 2D/MM IVS Diastolic Thickness (2D) 1.18 cm 0.60-1.00 LVID Diastole (2D) 2.41 cm 3.80-5.20 LVIW Diastolic Thickness (2D) 1.00 cm 0.60-0.90 LVID Systole (2D) 1.74 cm 2.20-3.50 LVOT Diameter 1.60 cm LV Mass (2D Cubed) 69.31 g 67.00-162.00 LV Mass Index (2D Cubed) 0.00 g/cm2 0.00-0.01 Relative Wall Thickness (2D) 0.83 LV Fractional Shortening/Ejection Fraction 2D/MM LV Fractional Shortening (2D) 28 % 27-45 LV EF (2D Teicholz) 56 % 54-74 Atria Name Value Normal LA Dimensions LA Dimension (MM) 2.51 cm 2.70-3.80 LA Volume (4C A-L) 29.30 ml LA Volume (BP A-L) 25.80 ml Report Signatures
[2025-01-19 00:23] LABS: Glucose Point of Care 230 mg/dl (65-105)
[2025-01-19] MEDS: ONDANSETRON INJ 4 MG/2 ML VIAL IV PUSH ×3 (04:43→17:20)
[2025-01-19] MEDS: ACETAMINOPHEN 325 MG TABLET 650 MG PO ×3 (04:43→22:09)
[2025-01-19 04:57] LABS: Basophils Absolute Auto 0.2 K/mm3 (0.0-0.1); Basophils Percent Auto 1.1 % (0.2-1.2); Eosinophils Absolute Auto 0.2 K/mm3 (0-0.3); Eosinophils Percent Auto 1.3 % (0-4.4); Hematocrit 45.9 % (37.0-47.0); Hemoglobin 14.3 g/dL (12.0-15.0); Immature Granulocyte Absolute 0.06 K/mm3 (0.00-0.031); Immature Granulocyte Percent A 0.5 % (0-0.5); Lymphocytes Absolute Auto 3.45 K/mm3 (0.9-3.2); Lymphocytes Percent Auto 26.2 % (18.3-44.2); Mean Corpuscular HGB Conc 31.2 g/dl (32-36); Mean Corpuscular Hemoglobin 26.2 pg (26-34); Mean Corpuscular Volume 84.2 fl (80-100); Mean Platelet Volume 11.4 fl (7.4-10.4); Monocytes Absolute Auto 0.9 K/mm3 (0.1-0.6); Monocytes Percent Auto 6.8 % (2.6-8.5); Neutrophils Absolute Auto 8.4 K/mm3 (1.3-6.7); Neutrophils Percent Auto 64.1 % (45.5-73.1); Platelet Count Result 311 k/mm3 (150-375); Red Blood Count 5.45 M/mm3 (4.2-5.4); Red Cell Distribution Width 13.8 % (11.5-14.5); White Blood Count 13.2 K/mm3 (4.5-10.0)
[2025-01-19 05:14] LABS: Cholesterol 289 mg/dL (0-200); HDL Direct 58 mg/dL; Triglycerides 483 mg/dL (<150)
[2025-01-19 05:20] LABS: Alanine Aminotransferase 92 U/L (6-35); Albumin Level 4.5 g/dL (3.5-5.1); Alkaline Phosphatase 125 U/L (38-126); Anion Gap 13 mmol/L (4-12); Aspartate Amino Transferase 116 U/L (14-36); Blood Urea Nitrogen 10 mg/dL (7-17); Calcium 9.3 mg/dL (8.4-10.2); Carbon Dioxide 20 mmol/L (22-30); Chloride 102 mmol/L (98-107); Estimated CRCL calculation 85 ml/min; Estimated Glomerular Filt Rate > 60; Glucose 250 mg/dL (65-110); Magnesium 1.9 mg/dL (1.6-2.3); Potassium 3.9 mmol/L (3.4-5.0); Sodium 135 mmol/L (137-145)
[2025-01-19 05:25] LABS: LDL Cholesterol Direct 47 mg/dL
[2025-01-19] MEDS: HEPARIN SODIUM 5,000 UNITS/ML VIAL 2500 UNITS IV PUSH (06:30)
[2025-01-19 06:38] LABS: Glucose Point of Care 285 mg/dl (65-105)
[2025-01-19] MEDS: NITROGLYCERIN SL 0.4 MG TABLET SUBLINGUAL ×3 (08:40→10:23)
[2025-01-19] MEDS: ASPIRIN 81 MG ENTERIC TABLET PO (08:40)
[2025-01-19] MEDS: HEPARIN SOD/D5W 100 UNITS/ML 25,000 UNITS/250 ML BAG 11 UNITS IV CONT (08:41)
--- NOTE | 2025-01-19 08:46 | PC.NURSE ---
Pt experiencing left sided chest pain, radiating to shoulder and neck. Pt nauseous. ST elevation noted on tele. can labeler RN here to prep pt for cathode ray tube assembler, she is the first case at 0900. Aspirin and nitro given.
--- NOTE | 2025-01-19 09:03 | P.SEDATION_ITS ---
Moderate Sedation Note-Pt Data Patient Data Allergies Allergy/AdvReac Type Severity Reaction Status Date / Time [id number] Reductase Allergy Nausea and Verified 01/17/25 21:32 Inhibitor Vomiting ciprofloxacin AdvReac Mild nausea and Verified 01/17/25 21:32 vomitting aspirin AdvReac Nausea and Verified 01/17/25 21:32 Vomiting Home Medications ?Medication ?Instructions ?Recorded ?Confirmed ?Type dulaglutide 0.75 mg/0.5 mL 0.75 mg (0.5 mL) subcut WEEKLY #2 07/31/24 01/17/25 Rx subcutaneous pen injector mL (Trulicity) Current Medications: Active Medications Acetaminophen (Acetaminophen 325 Mg Tablet) 650 mg PO Q4H PRN PRN Reason: Mild Pain (1-3) or Fever Last Admin: 01/19/25 04:43 Dose: 650 mg Aspirin (Aspirin 81 Mg Enteric Tablet) 81 mg PO [facility] Last Admin: 01/19/25 08:40 Dose: 81 mg Dextrose (Dextrose 50% 25 Gm/50 Ml Syringe) 12.5 gm IV PUSH PRN PRN; Protocol PRN Reason: Hypoglycemia Glucagon (Glucagon For Inj 1 Mg Vial) 1 mg IM PRN PRN; Protocol PRN Reason: Hypoglycemia Glucose (Glucose Oral Gel 15 Gm Of Glucse In 37.5 Gm Tube) 15 gm PO PRN PRN; Protocol PRN Reason: Hypoglycemia Heparin Sodium (Porcine) (Heparin Sodium 5,000 Units/Ml Vial) 4,000 units IV PUSH PRN PRN PRN Reason: aPTT less than 55 seconds Last Admin: 01/18/25 13:25 Dose: 4,000 units Heparin Sodium (Porcine) (Heparin Sodium 5,000 Units/Ml Vial) 2,500 units IV PUSH PRN PRN PRN Reason: aPTT 55 - 70 seconds Last Admin: 01/19/25 06:30 Dose: 2,500 units Heparin Sodium/Dextrose (Heparin Sodium/D5w 100 Units/Ml) 25,000 units in 250 mls @ 11 mls/hr IV CONT .[id number] [facility]; Protocol Last Admin: 01/19/25 08:41 Dose: 1,100 units/hr, 11 mls/hr Dextrose (Dextrose 5% 1,000 Ml) 1,000 mls @ 100 mls/hr IVPB PRN PRN; Protocol PRN Reason: Hypoglycemia Insulin Aspart (Insulin Aspart (*Bkc) 100 Units/Ml) 2 - 5 units SUB-Q TIDWM ROBERTA; Protocol Last Admin: 01/19/25 08:50 Dose: Not Given Insulin Aspart (Insulin Aspart (*Bkc) 100 Units/Ml) 1 - 2 units SUB-Q HS ROBERTA; Protocol Last Admin: 01/18/25 20:42 Dose: Not Given Insulin Aspart (Insulin Aspart (*Bkc) 100 Units/Ml) 3 units 0.05 units/kg (3 units) SUB-Q TIDWM ROBERTA Last Admin: 01/19/25 08:51 Dose: Not Given Insulin Glargine (Insulin Glargine (*Bkc) 100 Units/Ml) 10 units 0.15 units/kg (10 units) SUB-Q HS ROBERTA Last Admin: 01/18/25 20:42 Dose: Not Given Metoprolol Tartrate (Metoprolol Tartrate 12.5 Mg Tablet) 12.5 mg PO Q12HR ROBERTA Last Admin: 01/19/25 08:51 Dose: Not Given Nitroglycerin (Nitroglycerin Sl 0.4 Mg Tablet) 0.4 mg SUBLINGUAL Q5MIN PRN PRN Reason: Chest Pain Last Admin: 01/19/25 08:40 Dose: 0.4 mg Ondansetron HCl (Ondansetron Inj 4 Mg/2 Ml Vial) 4 mg IV PUSH Q4H PRN PRN Reason: Nausea Last Admin: 01/19/25 04:43 Dose: 4 mg Sedation/Anesthesia: No previous sedation/anesthesia problems (including family history). [facility] Past Medical History Medical History Encounter for wellness examination in adult BMI 26.0-26.9,adult Osteoarthritis of both hips moderate osteoarthritis of both hips noted on x-ray 01/06/2022. Chronic anxiety Chronic depression BMI 25.0-25.9,adult Overweight (BMI 25.0-29.9) Chronic midline low back pain without sciatica (~2014) Mild spondylosis at L5-S1 with facet arthropathy in the lower lumbar spine on CT of the abdomen and pelvis 01/12/2022. MRI of the lumbar spine on 09/01/2015 with annular bulge at L5-S1 with mild facet arthropathy. CT of the lumbar spine on 08/06/2024 reveals chronic pars defect at L5 with bulging disc at L3-L4-L4-L5 and L5-S1 with mild central stenosis and facet arthropathy with mild foraminal narrowing. Wellness examination Muscle cramps Constipation COVID-19 (05/08/22) tested positive 05/09/2022. Breast cancer screening by mammogram normal mammogram 04/22/2022. Normal mammogram 07/28/2023. UTI (urinary tract infection) Diverticulosis otherwise normal colonoscopy 11/08/2020 Fatty liver (~10/13/20) Stricture of ascending colon (~10/13/20) no stricture on colonoscopy 11/08/2020 Abdominal pain Acute non-recurrent maxillary sinusitis Palpitation Encounter for screening for other viral diseases Exposure to COVID-19 virus Headache Dyshidrotic eczema Ureteral stone Chronic rhinitis Obstructive sleep apnea of adult Irritable bowel syndrome with constipation Controlled diabetes mellitus type II without complication fasting glucose 134 with hemoglobin A1c 7.3 and urine microalbumin ratio of 5 with GFR 86 on 04/23/2024 Mixed hyperlipidemia Patient is intolerant to all statins, fenofibrate, Zetia, gemfibrozil .total cholesterol 361, HDL 47, triglycerides 441 with LDL not calculated and ratio 7.7 on 04/23/2024. High cholesterol Diabetes IBS (irritable bowel syndrome) Surgical History Surgical History History of 2 sections 1995, 2000 History of cholecystectomy Family History Family History Mother Diabetes mellitus Other Acute myocardial infarction High cholesterol Father Acute myocardial infarction Grandparent Diabetes mellitus Grandparent Lung disease Social History Social History Years smoked: 20 Smoking status: Current every day smoker Tobacco type: e-cigarettes/vaping Second hand tobacco smoke exposure: Yes Smoking end date: 10/19/19 Additional smoking assessment comments: few vape pods/day Alcohol intake: current Drinks per week: 2 Alcohol use details: 4-5/MONTH Substance use: never Substance use type: does not use Do You Feel Safe in your Home?: Yes Lack of Transportation: No Lack of Food: Never True Current Housing: I Have Housing Concerned About Future Housing: No Difficulty Paying Gas/Electric Bills: No Difficulty Paying for Meds: No Currently Unemployed: No Education: High School Diploma/GED Difficulty w/ Childcare or Family Care: No Living arrangements: with family Spiritual care concerns: No Mod Sed Physical Exam Physical Exam Pre Procedural Exam: Normal: Lungs, Heart Rate and Heart Rhythm Hours since solid foods: 12 Hours since liquid intake: 12 Mallampati Classification: class II Internal Medicine - PN: Obj Da Vital Signs Vital Signs: Vital Signs - 24 hr 01/18/25 09:19 01/18/25 09:24 01/18/25 10:43 Temperature 36.5 C Pulse Rate 69 72 Respiratory Rate 12 Blood Pressure 141/73 H 140/80 Pulse Oximetry 99 Oxygen Delivery 01/18/25 10:57 01/18/25 11:57 01/18/25 12:00 Temperature 37.1 C Pulse Rate 77 73 Respiratory Rate 14 Blood Pressure 117/68 Pulse Oximetry 99 100 Oxygen Delivery Room Air 01/18/25 14:00 01/18/25 16:00 01/18/25 16:00 Temperature 37.1 C Pulse Rate 78 78 78 Respiratory Rate 16 Blood Pressure 129/82 Pulse Oximetry 99 Oxygen Delivery 01/18/25 18:00 01/18/25 20:00 01/18/25 20:00 Temperature 36.9 C Pulse Rate 76 84 Respiratory Rate 16 Blood Pressure 141/80 H Pulse Oximetry 100 Oxygen Delivery Room Air 01/18/25 20:00 01/18/25 20:43 01/19/25 00:00 Temperature 36.8 C Pulse Rate 78 92 77 Respiratory Rate 16 Blood Pressure 142/74 H Pulse Oximetry 99 Oxygen Delivery 01/19/25 00:00 01/19/25 00:00 01/19/25 04:00 Temperature Pulse Rate 78 Respiratory Rate Blood Pressure Pulse Oximetry Oxygen Delivery Room Air Room Air 01/19/25 04:00 01/19/25 04:00 01/19/25 07:44 Temperature 36.9 C 36.9 C Pulse Rate 98 97 101 H Respiratory Rate 20 14 Blood Pressure 129/86 118/64 Pulse Oximetry 98 97 Oxygen Delivery Intake/Output Intake/Output: Intake & Output 01/16/25 01/17/25 01/18/25 01/19/25 23:59 23:59 23:59 23:59 Intake Total 1761.4 218.6 Balance 1761.4 218.6 Meds/Results Medications: Active Medications Generic Name Dose Route Start Last Admin Trade Name Freq PRN Reason Stop Dose Admin Acetaminophen 650 mg 01/18/25 01:31 01/19/25 04:43 Acetaminophen 325 Mg Tablet PO 650 mg Q4H PRN Administration Mild Pain (1-3) or Fever Aspirin 81 mg 01/19/25 09:00 01/19/25 08:40 Aspirin 81 Mg Enteric Tablet PO 81 mg QAM ROBERTA Administration Dextrose 12.5 gm 01/18/25 12:40 Dextrose 50% 25 Gm/50 Ml Syringe IV PUSH PRN PRN Hypoglycemia Protocol Glucagon 1 mg 01/18/25 12:40 Glucagon For Inj 1 Mg Vial IM PRN PRN Hypoglycemia Protocol Glucose 15 gm 01/18/25 12:40 Glucose Oral Gel 15 Gm Of Glucse In 37.5 Gm Tube PO PRN PRN Hypoglycemia Protocol Heparin Sodium (Porcine) 4,000 units 01/18/25 01:29 01/18/25 13:25 Heparin Sodium 5,000 Units/Ml Vial IV PUSH 4,000 units PRN PRN Administration aPTT less than 55 seconds Heparin Sodium (Porcine) 2,500 units 01/18/25 01:29 01/19/25 06:30 Heparin Sodium 5,000 Units/Ml Vial IV PUSH 2,500 units PRN PRN Administration aPTT 55 - 70 seconds Heparin Sodium/Dextrose 25,000 units in 250 mls @ 11 mls/hr 01/18/25 01:30 01/19/25 08:41 Heparin Sodium/D5w 100 Units/Ml IV CONT 1,100 units/hr .[id number] ROBERTA 11 mls/hr Administration Protocol 1,100 UNITS/HR Dextrose 1,000 mls @ 100 mls/hr 01/18/25 12:40 Dextrose 5% 1,000 Ml IVPB PRN PRN Hypoglycemia Protocol Insulin Aspart 2 - 5 units 01/18/25 08:00 01/19/25 08:50 Insulin Aspart (*Bkc) 100 Units/Ml SUB-Q Not Given TIDWM [facility] Protocol Insulin Aspart 1 - 2 units 01/18/25 21:00 01/18/25 20:42 Insulin Aspart (*Bkc) 100 Units/Ml SUB-Q Not Given HS [facility] Protocol Insulin Aspart 3 units 01/18/25 17:00 01/19/25 08:51 Insulin Aspart (*Bkc) 100 Units/Ml 0.05 units/kg (3 units) Not Given SUB-Q TIDWM ROBERTA Insulin Glargine 10 units 01/18/25 21:00 01/18/25 20:42 Insulin Glargine (*Bkc) 100 Units/Ml 0.15 units/kg (10 units) Not Given SUB-Q HS ROBERTA Metoprolol Tartrate 12.5 mg 01/18/25 07:00 01/19/25 08:51 Metoprolol Tartrate 12.5 Mg Tablet PO Not Given Q12HR ROBERTA Nitroglycerin 0.4 mg 01/18/25 01:31 01/19/25 08:40 Nitroglycerin Sl 0.4 Mg Tablet SUBLINGUAL 0.4 mg Q5MIN PRN Administration Chest Pain Ondansetron HCl 4 mg 01/18/25 01:31 01/19/25 04:43 Ondansetron Inj 4 Mg/2 Ml Vial IV PUSH 4 mg Q4H PRN Administration Nausea Radiology Results: ITS Impressions Chest X-Ray 01/18/25 06:48 IMPRESSION: No acute cardiopulmonary pathology. Labs 01/19/25 04:27 01/19/25 04:27 Labs: Laboratory Results - last 24 hr 01/18/25 01/18/25 01/18/25 07:48 10:18 13:45 WBC RBC Hgb Hct MCV MCH MCHC RDW Plt Count MPV Immature Gran % (Auto) Neut % (Auto) Lymph % (Auto) [place] % (Auto) Eos % (Auto) Baso % (Auto) Lymph # (Auto) [place] # (Auto) Eos # (Auto) Baso # (Auto) Abs Immat Gran (auto) Absolute Neuts (auto) Absolute Nucleated RBC Nucleated RBC % APTT 41.9 H Sodium Potassium Chloride Carbon Dioxide Anion Gap BUN Creatinine Estim Creat Clear Calc Estimated GFR Glucose POC Capillary Glucose 333 H Calcium Magnesium Total Bilirubin AST ALT Alkaline Phosphatase Troponin I 1.850 H* D Total Protein Albumin Triglycerides Cholesterol LDL Cholesterol Direct HDL Direct 01/18/25 01/18/25 01/18/25 15:58 16:58 22:30 WBC RBC Hgb Hct MCV MCH MCHC RDW Plt Count MPV Immature Gran % (Auto) Neut % (Auto) Lymph % (Auto) [place] % (Auto) Eos % (Auto) Baso % (Auto) Lymph # (Auto) [place] # (Auto) Eos # (Auto) Baso # (Auto) Abs Immat Gran (auto) Absolute Neuts (auto) Absolute Nucleated RBC Nucleated RBC % APTT 66.9 H 105.6 H Sodium Potassium Chloride Carbon Dioxide Anion Gap BUN Creatinine Estim Creat Clear Calc Estimated GFR Glucose POC Capillary Glucose 228 H Calcium Magnesium Total Bilirubin AST ALT Alkaline Phosphatase Troponin I Total Protein Albumin Triglycerides Cholesterol LDL Cholesterol Direct HDL Direct 01/19/25 01/19/25 01/19/25 00:07 04:27 05:58 WBC 13.2 H RBC 5.45 H Hgb 14.3 Hct 45.9 MCV 84.2 MCH 26.2 MCHC 31.2 L RDW 13.8 Plt Count 311 MPV 11.4 H Immature Gran % (Auto) 0.5 Neut % (Auto) 64.1 Lymph % (Auto) 26.2 [place] % (Auto) 6.8 Eos % (Auto) 1.3 Baso % (Auto) 1.1 Lymph # (Auto) 3.45 H [place] # (Auto) 0.9 H Eos # (Auto) 0.2 Baso # (Auto) 0.2 H Abs Immat Gran (auto) 0.06 H Absolute Neuts (auto) 8.4 H Absolute Nucleated RBC 0.000 Nucleated RBC % 0.0 APTT 64.0 H Sodium 135 L Potassium 3.9 Chloride 102 Carbon Dioxide 20 L Anion Gap 13 H BUN 10 Creatinine 0.55 L Estim Creat Clear Calc 85 Estimated GFR > 60 Glucose 250 H POC Capillary Glucose 230 H Calcium 9.3 Magnesium 1.9 Total Bilirubin 1.0 AST 116 H ALT 92 H Alkaline Phosphatase 125 Troponin I Total Protein 8.0 Albumin 4.5 Triglycerides 483 H Cholesterol 289 H LDL Cholesterol Direct 47 HDL Direct 58 01/19/25 06:18 WBC RBC Hgb Hct MCV MCH MCHC RDW Plt Count MPV Immature Gran % (Auto) Neut % (Auto) Lymph % (Auto) [place] % (Auto) Eos % (Auto) Baso % (Auto) Lymph # (Auto) [place] # (Auto) Eos # (Auto) Baso # (Auto) Abs Immat Gran (auto) Absolute Neuts (auto) Absolute Nucleated RBC Nucleated RBC % APTT Sodium Potassium Chloride Carbon Dioxide Anion Gap BUN Creatinine Estim Creat Clear Calc Estimated GFR Glucose POC Capillary Glucose 285 H Calcium Magnesium Total Bilirubin AST ALT Alkaline Phosphatase Troponin I Total Protein Albumin Triglycerides Cholesterol LDL Cholesterol Direct HDL Direct ASA Classification/Sedation ASA Classification/Sedation ASA Class: III Emergent: No Risks: Risks, benefits and alternatives explained and patient/family accepted plan for sedation. Patient re-evaluated immediately prior to sedation.
--- NOTE | 2025-01-19 09:03 | WPDHPUPDATE1 ---
History and Physical Update Update Date/Time: 01/19/25 09:03 History and Physical has been reviewed, including an updated exam of the patient. There are NO changes in the patient's condition. Risks, benefits, and alternatives have been discussed and questions answered. Patient agrees to proceed with procedure.
--- NOTE | 2025-01-19 09:57 | P.PCNCC_ITS ---
Cardiac Cath Procedure Note Date of procedure:: 01/19/25 Performing physician:: CATHETERIZATION LABORATORY REPORT Procedure Date: 01/19/2025 Referring Physician: Dr. Mittal Anesthesia: Versed and Fentanyl were ordered and given in my presence at 0910, procedure ended at 0940. Supervision of nurse, Sulma Balderas monitored moderate sedation with 2mg Versed and 100mcg Fentanyl was provided for 30 minutes. Pre-op Diagnosis: NSTEMI Post-op Diagnosis: NSTEMI Procedure(s): Left heart catheterization with coronary angiography PTCA IVUS Access Site: Right radial artery Brief History and Clinical Indications: 59-year-old woman with diabetes type 2 and hyperlipidemia with statin intolerance presented with chest pain whose clinical presentation is consistent with non ST elevation NE now presents to cathead worker for cardiac catheterization with possible PCI. All risks, benefits and alternatives to left heart catheterization with or without percutaneous coronary intervention was discussed at length with the patient. Risk of complications including but not limited to bleeding, infection, arrhythmia, stroke, worsening kidney function, blood loss, groin hematoma, limb loss, emergency coronary artery bypass grafting, and even were discussed with the patient and all questions were answered. The patient understood and wished to proceed. Time out called, patient name, date of , medical record number, allergies, procedure performed, identify Process Safety Management Engineer, patient and staff member concurred with accurate data, procedure carried on. Findings: LEFT HEART CATHETERIZATION FINDINGS: 1. Left main: The left main coronary artery has 40% ostial stenosis and diffuse 10% stenosis throughout its body. The ostial and mid LMCA MLA by IVUS was calculated to be 6.0mm2 and 7.6mm2 respectively. 2. Left anterior descending: The LAD provides 2 main diagonal branches. The 1st diagonal branch has a 99% stenosis with ELIS 2 flow at the area where it bifurcates into 2 additional branches; a superior and inferior branch. Both of these branches become 1-1.5 mm vessels. The LAD in its midbody has a 50-60 stenosis. The remainder of the LAD and the 2nd diagonal branch have luminal irregularities. The mid LAD lesion MLA by IVUS was calculated to be 2.5mm2. 3. Left circumflex: The left circumflex artery is a nondominant vessel that provides 2 OM branches. This system has luminal irregularities. 4. Right coronary artery: The RCA is a large dominant vessel. There is diffuse 10-30% stenosis throughout the proximal and mid vessel. The PDA is a small caliber vessel with no angiographic high-grade stenosis. The right posterolateral branch has luminal irregularities. 5. Left ventricle: A. The aortic valve was not crossed 6. Opening AO pressure 112/72 and closing AO pressure 128/61 Description of Procedure: Informed consent signed and placed in the chart. Patient transferred to cathead worker room. Prepped and draped in usual sterile fashion. 2% lidocaine injected subcutaneously in right wrist area. 22-gauge venipuncture catheter used to access the right radial artery with the Seldinger technique. 6-FR slender sheath placed in right radial artery. Nitroglycerin 200mcg, Verapamil 2.5mg, and Heparin 5000U was given intraarterial through the sheath. J wire advanced under fluoroscopy 5F TIG diagnostic catheter engaged Left Main Coronary Artery. 5F TIG diagnostic catheter engaged Right Coronary Artery. Multiple orthogonal angiogram obtained and reviewed in decision was made to proceed with PTCA of the diagonal branch followed by intravascular ultrasound imaging of the mid LAD and into the ostial left main coronary artery. Procedure Description for PCI: Heparin was used for anticoagulation (ACT maintained above 250) Patient loaded with heparin at 70 units/kg. 6F EBU3.5 guide catheter was used to engage the LMCA. 0.014 Runthrough coronary wire was passed in to the superior branch of the first diagonal branch. The lesion was treated with a 2.0 x 15mm balloon inflated to 8atm. There was spasm distal to the stenosis in the superior branch for which intracoronary NTG 300mcg was administered with resolution of spasm. The stenosis in the mid diagonal was reduced to 20-30%. This was deemed acceptable given that the vessel size distal to the stenosis is no more than 1.5 mm in diameter. The Runthrough coronary wire was then pulled back and renegotiated into the distal LAD. The intravascular ultrasound catheter was then advanced into the mid LAD and images were obtained on manual pullback. All intracoronary equipment was then removed under fluoroscopy. Follow-up angiograms showed an acceptable results and no immediate angiographic complications identified. Intravascular ultrasound images review and minimal luminal area of the ostial le ft main, mid body of the left main, and mid LAD were calculated. The chest discomfort and arm discomfort that brought the patient to the cardiac catheterization lab has now resolved however was replaced by some left-sided substernal chest discomfort of a different nature that is mild. Most likely this represents resolution of symptoms from the ELIS 2 flow in the diagonal branch with onset of symptoms from balloon angioplasty of the vessel. With the patient's current clinical presentation NE, decision was made to medically manage the mid LAD lesion at this time in light of moderate ostial left main coronary artery disease. Patient was loaded with Plavix 300 mg in the recovery area. Pre-procedure - ELIS 2 flow Post-procedure - ELIS 3 flow Hemostasis was achieved with TR band. Assessment: Successful POBA of D1 with taoism of ELIS 3 flow and reduction of stenosis from 99% to 20-30%. Post Operative Condition: Stable No significant blood loss Disposition: Floor Plan: Monitor patient overnight for further symptoms. Continue ASA 81mg PO indefinitely. Continue plavix 75mg PO daily for a minimum of 1 year. Will need outpatient [id number] given her statin intolerance. Can consolidate her metoprolol tartrate to metoprolol succinate 25mg PO daily. Obtain a transthoracic echocardiogram. Travis Velez Interventional Cardiology
--- NOTE | 2025-01-19 10:42 | ECG_ITS ---
Test Date: 2025-01-19 10:44:48 Measurements Intervals Ono Rate: 109 P: 38 LA: 151 QRS: 70 QRSD: 81 T: 103 QT: 347 QTc: 469 Interpretive Statements SINUS TACHYCARDIA HIGH LATERAL INFARCT, PROBABLY RECENT BASELINE ARTIFACT- I ABNORMAL ECG Compared to ECG 01/18/2025 04:37:14 RECENT HIGH LATERAL INFARCT NOW PRESENT Electronically Signed On 01-19-2025 10:55:02 CDT by Hugo Campbell D.O.
[2025-01-19] MEDS: PERFLUTREN LIPID MICROSPHERES 1.5 ML VIAL DILUTED TO 10 ML TOTAL VOLUME IV PUSH (11:40)
[2025-01-19] MEDS: CLOPIDOGREL BISULFATE 300 MG TABLET PO (11:54)
[2025-01-19] MEDS: SODIUM CHLORIDE 0.9% IV 1,000 ML 125 ML IV CONT (11:56)
--- NOTE | 2025-01-19 12:44 | IVDEFINITY ---
Prior to administration of IV Definity the patient was educated on the risks and benefits of the imaging enhancing agent including potential adverse side effects. The patient verbalized understanding. Allergies were verified. No exclusion criteria were identified and at least one of the following inclusion criteria were met: 1) physician request, 2) patient technically difficult to image (per the [place] [employer] guidelines of two or more segments not discernable within the apical view), or 3) questionable left ventricular function. ?
[2025-01-19] MEDS: FAMOTIDINE 20 MG/2 ML VIAL 40 MG IV PUSH (12:53)
--- NOTE | 2025-01-19 13:07 | SUR.PHASEII ---
pt into recovery at 1010. 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 dr lindo in room and notified of chest pain. v/u. per guicho symptom not surprising r/t results of cath and what was involved with procedure pt had. 1015 pt still restless and crying in pain. nitro x 2 given to pt. no relief of chest pain noted. pt having trouble following right wrist restrictions including using right wrist to reposition and transfer. pt educated and encouraged to not use right wrist. pt v/u. 1030. b/p 80/50 ns iv fluids started at 125 per post cath protocol. pt nauseated emesis episode x2 zofran given. b/p improving with fluids addition. sats noted to be 88% started on o2 at this time. 1034 repeat b/p 90/50s. pt continues to c/o of pain now 8/10 and radiating down back and shoulders. dr lindo called. stat ekg ordered. [address] lindo in to see pt ordered echo reported pain noted from the heart recommended rest and repositioning. 1100 nausea improved pt tolerated po well. pt continues to have trouble following right wrist precautions. this rn walking into room seeing pt using phone with right wrist and holding drink cup. pt encouraged and educated again about order of not using right wrist at this time. pt v/u. 1200 pt reported slow improvement of chest pain. rating 3-4. order received iv pepcid. 1250 iv pepcid given continues to c/o of pain to left chest of 3-4. continuing to monitor. continue to remind pt of right wrist precautions pt needs frequent reminding and correction.
--- NOTE | 2025-01-19 16:11 | P.PNIM_ITS ---
Progress Note: A&P Assessment and Plan (1) Non-ST elevation TN (NSTEMI): Code(s): I21.4 - Non-ST elevation (NSTEMI) myocardial infarction Status: Acute (2) Hyperglycemia due to diabetes mellitus: Code(s): E11.65 - Type 2 diabetes mellitus with hyperglycemia Status: Acute (3) Hemoglobin A1c greater than 9.0%: Code(s): R73.09 - Other abnormal glucose Status: Acute (4) Nicotine dependence: Code(s): F17.200 - Nicotine dependence, unspecified, uncomplicated Status: Acute Plan This is a pleasant 59-year-old female with a history of hypertension, [id number] diabetes mellitus, dyslipidemia, nicotine vaping. She lives with her mother, experience distress which is the reason she does vaping, her father had CAD at a young age. The patient was doing her usual errands on 01/17/2025. She began to experience central chest pressure/tightness which got progressively worse. She did take anything nor did anything help relieve it. She experienced dizziness and bilateral arm pain as well. Eventually she presented to [facility]. For diabetes the patient takes Trulicity. She does not take anything for hypertension. She does not take any lipid-lowering medications as she has tried all of the statins and high-dose fish oil and they all make her feel very sick. ER evaluation demonstrated stable vital signs, WBC 12.9, hemoglobin A1c 10.1%, troponin 0.070, then 0.447 followed by 1.180, EKG without acute ST changes. Lipid panel pending, elevated serum glucose at 386, beta hydroxybutyrate negative, urinalysis positive for 3+ glucose. Quad viral screen negative. Chest x-ray with no acute cardiopulmonary pathology. Non-STEMI. Heparin GTT started, cardiology consulted. Administered aspirin 324 mg p.o. x1, morphine 4 mg IV x1. Insulin 8 units subcutaneous x1, normal saline 1 L bolus. Metoprolol b.i.d. started. Cardiology evaluation pending. continue aspirin 81 mg daily. Intolerant to statins. She will need to be evaluated for PCSK9 inhibitor use as an outpatient. Underwent cardiac catheterization 01/19/2025: Successful POBA of D1 with orthodoxy of ELIS 3 flow and reduction of stenosis from 99% to 20-30%. DAPT for one year, . need PCSK9I as op basis. Hypertension [id number] diabetes mellitus A1c came back at 10.1 last in April 2024 was 7.3 basal bolus insulin regimen for now. want to discuss insulin treatment with her pcp. Dyslipidemia LDL 41 however triglycerides 851 intolerant to statin as well as fibrates Nicotine vaping Code status full code DVT prophylaxis on heparin GTT Subjective Date/time seen: 01/19/25 16:11 Interval history: No overnight events. Underwent cardiac catheterization today. Does not want to take lot of medications. Also wants to discuss insulin with her primary care. Review of Systems Review of Systems: All systems reviewed & are unremarkable except as noted in HPI and below (HPI) Exam Narrative: GENERAL: Well-appearing, well-nourished, and in no acute distress. HEAD: Normocephalic, atraumatic. EYES: Non injected, non icteric ENT: Nares clear, no rhinorrhea or epistaxis. NECK: Supple. CHEST: Speaking in full sentences. No respiratory distress. HEART: Regular rate and rhythm. . ABDOMEN: Soft, nondistended. EXTREMITIES: Normal range of motion. No lower extremity edema. SKIN: Warm, dry, no rash. NEURO: No focal deficits. Alert and oriented x3. PSYCH: Normal mood and affect. Objective Data Vital Signs Vital Signs: Vital Signs - 24 hr 01/18/25 18:00 01/18/25 20:00 01/18/25 20:00 Temperature 98.5 F Pulse Rate 76 84 Pulse Rate [Right Radial] Respiratory Rate 16 Blood Pressure 141/80 H Pulse Oximetry 100 Oxygen Delivery Room Air Oxygen Flow Rate 01/18/25 20:00 01/18/25 20:43 01/19/25 00:00 Temperature 98.2 F Pulse Rate 78 92 77 Pulse Rate [Right Radial] Respiratory Rate 16 Blood Pressure 142/74 H Pulse Oximetry 99 Oxygen Delivery Oxygen Flow Rate 01/19/25 00:00 01/19/25 00:00 01/19/25 04:00 Temperature Pulse Rate 78 Pulse Rate [Right Radial] Respiratory Rate Blood Pressure Pulse Oximetry Oxygen Delivery Room Air Room Air Oxygen Flow Rate 01/19/25 04:00 01/19/25 04:00 01/19/25 07:44 Temperature 98.4 F 98.4 F Pulse Rate 98 97 101 H Pulse Rate [Right Radial] Respiratory Rate 20 14 Blood Pressure 129/86 118/64 Pulse Oximetry 98 97 Oxygen Delivery Oxygen Flow Rate 01/19/25 08:00 01/19/25 10:10 01/19/25 10:10 Temperature Pulse Rate 82 113 H Pulse Rate [Right Radial] 113 H Respiratory Rate 12 Blood Pressure 127/72 Pulse Oximetry 93 Oxygen Delivery Room Air Oxygen Flow Rate 01/19/25 10:15 01/19/25 10:15 01/19/25 10:30 Temperature Pulse Rate 108 H Pulse Rate [Right Radial] 110 H 108 H Respiratory Rate 14 Blood Pressure 110/65 Pulse Oximetry 92 Oxygen Delivery Room Air Oxygen Flow Rate 01/19/25 10:30 01/19/25 10:34 01/19/25 10:34 Temperature Pulse Rate 110 H 113 H Pulse Rate [Right Radial] 107 H Respiratory Rate 14 20 Blood Pressure 80/51 L 92/69 L Pulse Oximetry 88 L 96 Oxygen Delivery Room Air Nasal Cannula Oxygen Flow Rate 2 01/19/25 10:45 01/19/25 10:45 01/19/25 11:00 Temperature Pulse Rate 112 H Pulse Rate [Right Radial] 112 H 108 H Respiratory Rate 21 H Blood Pressure 93/52 L Pulse Oximetry 96 Oxygen Delivery Nasal Cannula Oxygen Flow Rate 2 01/19/25 11:00 01/19/25 11:15 01/19/25 11:15 Temperature Pulse Rate 108 H 108 H Pulse Rate [Right Radial] 106 H Respiratory Rate 19 21 H Blood Pressure 103/52 L 110/74 Pulse Oximetry 96 96 Oxygen Delivery Nasal Cannula Nasal Cannula Oxygen Flow Rate 2 2 01/19/25 11:30 01/19/25 11:30 01/19/25 11:45 Temperature Pulse Rate 105 H Pulse Rate [Right Radial] 105 H 107 H Respiratory Rate 20 Blood Pressure 111/74 Pulse Oximetry 96 Oxygen Delivery Nasal Cannula Oxygen Flow Rate 2 01/19/25 11:45 01/19/25 12:00 01/19/25 12:00 Temperature Pulse Rate 105 H 106 H Pulse Rate [Right Radial] 106 H Respiratory Rate 17 18 Blood Pressure 110/74 124/72 Pulse Oximetry 96 96 Oxygen Delivery Room Air Room Air Oxygen Flow Rate 01/19/25 12:15 01/19/25 12:15 01/19/25 12:30 Temperature Pulse Rate 105 H Pulse Rate [Right Radial] 106 H 102 H Respiratory Rate 17 Blood Pressure 110/73 Pulse Oximetry 97 Oxygen Delivery Room Air Oxygen Flow Rate 01/19/25 12:30 01/19/25 12:45 01/19/25 12:45 Temperature Pulse Rate 101 H 102 H Pulse Rate [Right Radial] 101 H Respiratory Rate 19 18 Blood Pressure 112/65 93/56 L Pulse Oximetry 98 97 Oxygen Delivery Room Air Room Air Oxygen Flow Rate 01/19/25 13:00 01/19/25 13:00 01/19/25 13:15 Temperature Pulse Rate 100 Pulse Rate [Right Radial] 100 100 Respiratory Rate 21 H Blood Pressure 98/60 L Pulse Oximetry 97 Oxygen Delivery Room Air Oxygen Flow Rate 01/19/25 13:15 01/19/25 13:30 01/19/25 13:30 Temperature Pulse Rate 100 102 H Pulse Rate [Right Radial] 102 H Respiratory Rate 19 18 Blood Pressure 104/68 114/85 Pulse Oximetry 97 98 Oxygen Delivery Room Air Room Air Oxygen Flow Rate 01/19/25 13:45 01/19/25 13:45 01/19/25 14:00 Temperature Pulse Rate 102 H 103 H Pulse Rate [Right Radial] 102 H Respiratory Rate 18 16 Blood Pressure 107/71 116/75 Pulse Oximetry 97 97 Oxygen Delivery Room Air Room Air Oxygen Flow Rate 01/19/25 14:00 01/19/25 14:15 01/19/25 14:15 Temperature Pulse Rate 101 H Pulse Rate [Right Radial] 103 H 101 H Respiratory Rate 16 Blood Pressure 118/73 Pulse Oximetry 96 Oxygen Delivery Room Air Oxygen Flow Rate 01/19/25 14:45 01/19/25 15:15 Temperature 98.0 F Pulse Rate 106 H 109 H Pulse Rate [Right Radial] Respiratory Rate 16 Blood Pressure 114/54 L 112/65 Pulse Oximetry 98 97 Oxygen Delivery Oxygen Flow Rate Intake/Output Intake/Output: Intake & Output 01/16/25 01/17/25 01/18/25 01/19/25 23:59 23:59 23:59 23:59 Intake Total 1761.4 218.6 Balance 1761.4 218.6 Meds/Results Medications: Active Medications Generic Name Dose Route Start Last Admin Trade Name Freq PRN Reason Stop Dose Admin Acetaminophen 650 mg 01/18/25 01:31 01/19/25 11:58 Acetaminophen 325 Mg Tablet PO 325 mg Q4H PRN Administration Mild Pain (1-3) or Fever Aspirin 81 mg 01/19/25 09:00 01/19/25 08:40 Aspirin 81 Mg Enteric Tablet PO 81 mg QAM ROBERTA Administration Dextrose 12.5 gm 01/18/25 12:40 Dextrose 50% 25 Gm/50 Ml Syringe IV PUSH PRN PRN Hypoglycemia Protocol Glucagon 1 mg 01/18/25 12:40 Glucagon For Inj 1 Mg Vial IM PRN PRN Hypoglycemia Protocol Glucose 15 gm 01/18/25 12:40 Glucose Oral Gel 15 Gm Of Glucse In 37.5 Gm Tube PO PRN PRN Hypoglycemia Protocol Dextrose 1,000 mls @ 100 mls/hr 01/18/25 12:40 Dextrose 5% 1,000 Ml IVPB PRN PRN Hypoglycemia Protocol Sodium Chloride 1,000 mls @ 125 mls/hr 01/19/25 10:21 01/19/25 11:56 Normal Saline Iv IV CONT 01/19/25 18:20 125 mls/hr .Q8H ONE Administration Insulin Aspart 2 - 5 units 01/18/25 08:00 01/19/25 14:33 Insulin Aspart (*Bkc) 100 Units/Ml SUB-Q Not Given TIDWM [facility] Protocol Insulin Aspart 1 - 2 units 01/18/25 21:00 01/18/25 20:42 Insulin Aspart (*Bkc) 100 Units/Ml SUB-Q Not Given [facility] Protocol Insulin Aspart 3 units 01/18/25 17:00 01/19/25 14:34 Insulin Aspart (*Bkc) 100 Units/Ml 0.05 units/kg (3 units) Not Given SUB-Q TIDWM [facility] Insulin Glargine 10 units 01/18/25 21:00 01/18/25 20:42 Insulin Glargine (*Bkc) 100 Units/Ml 0.15 units/kg (10 units) Not Given SUB-Q [facility] Metoprolol Succinate 25 mg 01/20/25 09:00 Metoprolol Succinate Ext Rel 25 Mg Tabcr PO QAM [facility] Nitroglycerin 0.4 mg 01/18/25 01:31 01/19/25 10:23 Nitroglycerin Sl 0.4 Mg Tablet SUBLINGUAL 0.4 mg Q5MIN PRN Administration Chest Pain Ondansetron HCl 4 mg 01/18/25 01:31 01/19/25 10:06 Ondansetron Inj 4 Mg/2 Ml Vial IV PUSH 4 mg Q4H PRN Administration Nausea Radiology Results: ITS Impressions Chest X-Ray 01/18/25 06:48 IMPRESSION: No acute cardiopulmonary pathology. Labs Labs: Laboratory Results - last 24 hr 01/18/25 01/18/25 01/18/25 15:58 16:58 22:30 WBC RBC Hgb Hct MCV MCH MCHC RDW Plt Count MPV Immature Gran % (Auto) Neut % (Auto) Lymph % (Auto) [place] % (Auto) Eos % (Auto) Baso % (Auto) Lymph # (Auto) [place] # (Auto) Eos # (Auto) Baso # (Auto) Abs Immat Gran (auto) Absolute Neuts (auto) Absolute Nucleated RBC Nucleated RBC % APTT 66.9 H 105.6 H Sodium Potassium Chloride Carbon Dioxide Anion Gap BUN Creatinine Estim Creat Clear Calc Estimated GFR Glucose POC Capillary Glucose 228 H Calcium Magnesium Total Bilirubin AST ALT Alkaline Phosphatase Total Protein Albumin Triglycerides Cholesterol LDL Cholesterol Direct HDL Direct 01/19/25 01/19/25 01/19/25 00:07 04:27 05:58 WBC 13.2 H RBC 5.45 H Hgb 14.3 Hct 45.9 MCV 84.2 MCH 26.2 MCHC 31.2 L RDW 13.8 Plt Count 311 MPV 11.4 H Immature Gran % (Auto) 0.5 Neut % (Auto) 64.1 Lymph % (Auto) 26.2 [place] % (Auto) 6.8 Eos % (Auto) 1.3 Baso % (Auto) 1.1 Lymph # (Auto) 3.45 H [place] # (Auto) 0.9 H Eos # (Auto) 0.2 Baso # (Auto) 0.2 H Abs Immat Gran (auto) 0.06 H Absolute Neuts (auto) 8.4 H Absolute Nucleated RBC 0.000 Nucleated RBC % 0.0 APTT 64.0 H Sodium 135 L Potassium 3.9 Chloride 102 Carbon Dioxide 20 L Anion Gap 13 H BUN 10 Creatinine 0.55 L Estim Creat Clear Calc 85 Estimated GFR > 60 Glucose 250 H POC Capillary Glucose 230 H Calcium 9.3 Magnesium 1.9 Total Bilirubin 1.0 AST 116 H ALT 92 H Alkaline Phosphatase 125 Total Protein 8.0 Albumin 4.5 Triglycerides 483 H Cholesterol 289 H LDL Cholesterol Direct 47 HDL Direct 58 01/19/25 06:18 WBC RBC Hgb Hct MCV MCH MCHC RDW Plt Count MPV Immature Gran % (Auto) Neut % (Auto) Lymph % (Auto) [place] % (Auto) Eos % (Auto) Baso % (Auto) Lymph # (Auto) [place] # (Auto) Eos # (Auto) Baso # (Auto) Abs Immat Gran (auto) Absolute Neuts (auto) Absolute Nucleated RBC Nucleated RBC % APTT Sodium Potassium Chloride Carbon Dioxide Anion Gap BUN Creatinine Estim Creat Clear Calc Estimated GFR Glucose POC Capillary Glucose 285 H Calcium Magnesium Total Bilirubin AST ALT Alkaline Phosphatase Total Protein Albumin Triglycerides Cholesterol LDL Cholesterol Direct HDL Direct
[2025-01-19 16:16] LABS: Glucose Point of Care 277 mg/dl (65-105)
[2025-01-19 17:07] LABS: Activated Clotting Time 308 SEC (74-137)
[2025-01-19] MEDS: INSULIN ASPART (*BKC) 100 UNITS/ML SUB-Q ×3 (17:15→22:08)
[2025-01-19 21:35] LABS: Glucose Point of Care 236 mg/dl (65-105)
[2025-01-19] MEDS: INSULIN GLARGINE (*BKC) 100 UNITS/ML 10 UNITS SUB-Q (22:09)
[2025-01-20] VITALS (8 sets, daily range): BP systolic 115–140; BP diastolic 60–82; PULSE 81–99; RESP 18; TEMP 36.7–36.9; O2SAT 95–96
[2025-01-20 04:34] LABS: Basophils Absolute Auto 0.1 K/mm3 (0.0-0.1); Basophils Percent Auto 0.7 % (0.2-1.2); Eosinophils Absolute Auto 0.1 K/mm3 (0-0.3); Eosinophils Percent Auto 0.7 % (0-4.4); Hemoglobin 12.9 g/dL (12.0-15.0); Immature Granulocyte Absolute 0.06 K/mm3 (0.00-0.031); Immature Granulocyte Percent A 0.6 % (0-0.5); Lymphocytes Absolute Auto 2.59 K/mm3 (0.9-3.2); Mean Corpuscular HGB Conc 31.5 g/dl (32-36); Mean Corpuscular Volume 82.7 fl (80-100); Monocytes Absolute Auto 0.9 K/mm3 (0.1-0.6); Monocytes Percent Auto 8.7 % (2.6-8.5); Neutrophils Percent Auto 65.3 % (45.5-73.1); Platelet Count Result 287 k/mm3 (150-375); Red Blood Count 4.96 M/mm3 (4.2-5.4); Red Cell Distribution Width 13.8 % (11.5-14.5); White Blood Count 10.8 K/mm3 (4.5-10.0)
[2025-01-20 04:49] LABS: Alanine Aminotransferase 80 U/L (6-35); Albumin Level 4.1 g/dL (3.5-5.1); Alkaline Phosphatase 98 U/L (38-126); Anion Gap 11 mmol/L (4-12); Aspartate Amino Transferase 75 U/L (14-36); Bilirubin,Total 1.4 mg/dL (0.2-1.3); Blood Urea Nitrogen 13 mg/dL (7-17); Calcium 9.1 mg/dL (8.4-10.2); Carbon Dioxide 23 mmol/L (22-30); Chloride 103 mmol/L (98-107); Estimated CRCL calculation 73 ml/min; Estimated Glomerular Filt Rate > 60; Glucose 215 mg/dL (65-110); Potassium 3.4 mmol/L (3.4-5.0); Sodium 137 mmol/L (137-145)
[2025-01-20 07:29] LABS: Glucose Point of Care 234 mg/dl (65-105)
[2025-01-20] MEDS: ASPIRIN 81 MG ENTERIC TABLET PO (09:16)
[2025-01-20] MEDS: METOPROLOL SUCCINATE EXT REL 25 MG TABCR PO (09:16)
[2025-01-20] MEDS: INSULIN ASPART (*BKC) 100 UNITS/ML SUB-Q ×2 (09:17→09:18)
[2025-01-20 11:35] LABS: Glucose Point of Care 279 mg/dl (65-105)
[2025-01-20] MEDS: CLOPIDOGREL BISULFATE 75 MG TABLET PO (11:43)
--- NOTE | 2025-01-20 13:02 | P.DS_ITS ---
DS: Admitting Diagnosis Discharge Date 01/20/2025 Admitting Diagnosis chest pain DS: Discharge Diagnosis Discharge Diagnosis (1) Non-ST elevation GA (NSTEMI): Code(s): I21.4 - Non-ST elevation (NSTEMI) myocardial infarction Status: Acute (2) Hyperglycemia due to diabetes mellitus: Code(s): E11.65 - Type 2 diabetes mellitus with hyperglycemia Status: Acute (3) Hemoglobin A1c greater than 9.0%: Code(s): R73.09 - Other abnormal glucose Status: Acute (4) Nicotine dependence: Code(s): F17.200 - Nicotine dependence, unspecified, uncomplicated Status: Acute DS: Summary Hospital Course Hospital Course: This is a pleasant 59-year-old female with a history of hypertension, jrs-rqglecb-[id number] diabetes mellitus, dyslipidemia, nicotine vaping. She lives with her mother, experience distress which is the reason she does vaping, her father had CAD at a young age. The patient was doing her usual errands on 01/17/2025. She began to experience central chest pressure/tightness which got progressively worse. She did take anything nor did anything help relieve it. She experienced dizziness and bilateral arm pain as well. Eventually she presented to [facility]. For diabetes the patient takes Trulicity. She does not take anything for hypertension. She does not take any lipid-lowering medications as she has tried all of the statins and high-dose fish oil and they all make her feel very sick. ER evaluation demonstrated stable vital signs, WBC 12.9, hemoglobin A1c 10.1%, troponin 0.070, then 0.447 followed by 1.180, EKG without acute ST changes. Lipid panel pending, elevated serum glucose at 386, beta hydroxybutyrate negative, urinalysis positive for 3+ glucose. Quad viral screen negative. Chest x-ray with no acute cardiopulmonary pathology. Non-STEMI. Heparin GTT started, cardiology consulted. Administered aspirin 324 mg p.o. x1, morphine 4 mg IV x1. Insulin 8 units subcutaneous x1, normal saline 1 L bolus. Metoprolol b.i.d. started. Cardiologyconsulted. continue aspirin 81 mg daily. Intolerant to statins. She will need to be evaluated for PCSK9 inhibitor use as an outpatient. Underwent cardiac catheterization 01/19/2025: Successful POBA of D1 with faith of ELIS 3 flow and reduction of stenosis from 99% to 20-30%. DAPT for one year, followed by aspirin indefinitely. need PCSK9I as op basis. Hypertension Dui-ermnxuv-wjeikeyuj diabetes mellitus A1c came back at 10.1 last in April 2024 was 7.3 basal bolus insulin regimen for now. want to discuss insulin treatment with her pcp. Dyslipidemia LDL 41 however triglycerides 851 intolerant to statin as well as fibrates Nicotine vaping Code status full code DVT prophylaxis on heparin GTT Time Spent with Patient Time attestation: Total time spent providing and/or coordinating discharge services: 45 mins Exam Narrative: GENERAL: Well-appearing, well-nourished, and in no acute distress. HEAD: Normocephalic, atraumatic. EYES: Non injected, non icteric ENT: Nares clear, no rhinorrhea or epistaxis. NECK: Supple. CHEST: Speaking in full sentences. No respiratory distress. HEART: Regular rate and rhythm. . ABDOMEN: Soft, nondistended. EXTREMITIES: Normal range of motion. No lower extremity edema. SKIN: Warm, dry, no rash. NEURO: No focal deficits. Alert and oriented x3. PSYCH: Normal mood and affect. DS: Data Data Completed and Pending Completed studies during hospitalization: Exam Type: CA echo dop color flow w con Study Info Indications - NSTEMI Complete two-dimensional, color flow and Doppler transthoracic echocardiogram is performed with contrast to opacify the left ventricle and to improve the deliniation of the left ventricle endocardial borders. Contrast/Agitated Saline Contrast/Ag. Saline: Definity Amount: 2.00 ml Existing IV Access: Yes IV Access Condition: patent with no signs of infiltration Summary 1. The left ventricle is normal in size and systolic function. Left ventricular ejection fraction is visually estimated to be 60-65%. There are no regional wall motion abnormalities. 2. The right ventricle is normal in size and systolic function. 3. There are no pericardial effusions in the available views. Left Ventricle The left ventricle is normal in size and systolic function. Left ventricular ejection fraction is visually estimated to be 60-65%. There are no regional wall motion abnormalities. Right Ventricle The right ventricle is normal in size and systolic function. Left Atria The left atrium is normal size. Right Atria The right atrium is normal size. Atrial Septum The atrial septum is not well visualized. Aortic Valve The aortic valve is not well visualized. Pulmonic Valve The pulmonic valve is not well visualized. There is no color Doppler evidence of pulmonic valve regurgitation. Mitral Valve The mitral valve is normal. There is no mitral regurgitation. Tricuspid Valve The tricuspid valve is normal. There is no tricuspid regurgitation. Pericardium/Pleural There are no pericardial effusions in the available views. Inferior Vena Cava Inferior vena cava is not well visualized. Aorta The aortic root at the level of the sinus of Valsalva measures 2.5 cm in diameter. Labs on day of discharge: Labs from last 24 hours 01/20/25 01/20/25 01/20/25 11:12 07:21 04:10 WBC 10.8 H RBC 4.96 Hgb 12.9 Hct 41.0 MCV 82.7 MCH 26.0 MCHC 31.5 L RDW 13.8 Plt Count 287 MPV 11.0 H Immature Gran % (Auto) 0.6 H Neut % (Auto) 65.3 Lymph % (Auto) 24.0 [place] % (Auto) 8.7 H Eos % (Auto) 0.7 Baso % (Auto) 0.7 Lymph # (Auto) 2.59 [place] # (Auto) 0.9 H Eos # (Auto) 0.1 Baso # (Auto) 0.1 Abs Immat Gran (auto) 0.06 H Absolute Neuts (auto) 7.0 H Absolute Nucleated RBC 0.000 Nucleated RBC % 0.0 Activ Coag Time Kaolin Sodium 137 Potassium 3.4 Chloride 103 Carbon Dioxide 23 Anion Gap 11 BUN 13 Creatinine 0.57 L Estim Creat Clear Calc 73 Estimated GFR > 60 Glucose 215 H POC Capillary Glucose 279 H 234 H Calcium 9.1 Magnesium 2.0 Total Bilirubin 1.4 H AST 75 H ALT 80 H Alkaline Phosphatase 98 Total Protein 7.0 Albumin 4.1 01/19/25 01/19/25 01/19/25 21:31 16:09 09:47 WBC RBC Hgb Hct MCV MCH MCHC RDW Plt Count MPV Immature Gran % (Auto) Neut % (Auto) Lymph % (Auto) [place] % (Auto) Eos % (Auto) Baso % (Auto) Lymph # (Auto) [place] # (Auto) Eos # (Auto) Baso # (Auto) Abs Immat Gran (auto) Absolute Neuts (auto) Absolute Nucleated RBC Nucleated RBC % Activ Coag Time Kaolin 308 H Sodium Potassium Chloride Carbon Dioxide Anion Gap BUN Creatinine Estim Creat Clear Calc Estimated GFR Glucose POC Capillary Glucose 236 H 277 H Calcium Magnesium Total Bilirubin AST ALT Alkaline Phosphatase Total Protein Albumin Procedures/Treatments: Cardiac Cath Procedure Note Date of procedure:: 01/19/25 Performing physician:: CATHETERIZATION LABORATORY REPORT Procedure Date: 01/19/2025 Referring Physician: Dr. Mittal Anesthesia: Versed and Fentanyl were ordered and given in my presence at 0910, procedure ended at 0940. Supervision of nurse, Sulma Balderas monitored moderate sedation with 2mg Versed and 100mcg Fentanyl was provided for 30 minutes. Pre-op Diagnosis: NSTEMI Post-op Diagnosis: NSTEMI Procedure(s): Left heart catheterization with coronary angiography PTCA IVUS Access Site: Right radial artery Brief History and Clinical Indications: 59-year-old woman with diabetes type 2 and hyperlipidemia with statin intolerance presented with chest pain whose clinical presentation is consistent with non ST elevation GA now presents to geotechnical laboratory technician for cardiac catheterization with possible PCI. All risks, benefits and alternatives to left heart catheterization with or without percutaneous coronary intervention was discussed at length with the patient. Risk of complications including but not limited to bleeding, infection, arrhythmia, stroke, worsening kidney function, blood loss, groin hematoma, limb loss, emergency coronary artery bypass grafting, and even were discussed with the patient and all questions were answered. The patient understood and wished to proceed. Time out called, patient name, date of , medical record number, allergies, procedure performed, identify Cleaning Matron, patient and staff member concurred with accurate data, procedure carried on. Findings: LEFT HEART CATHETERIZATION FINDINGS: 1. Left main: The left main coronary artery has 40% ostial stenosis and diffuse 10% stenosis throughout its body. The ostial and mid LMCA MLA by IVUS was calculated to be 6.0mm2 and 7.6mm2 respectively. 2. Left anterior descending: The LAD provides 2 main diagonal branches. The 1st diagonal branch has a 99% stenosis with ELIS 2 flow at the area where it bifurcates into 2 additional branches; a superior and inferior branch. Both of these branches become 1-1.5 mm vessels. The LAD in its midbody has a 50-60 stenosis. The remainder of the LAD and the 2nd diagonal branch have luminal irregularities. The mid LAD lesion MLA by IVUS was calculated to be 2.5mm2. 3. Left circumflex: The left circumflex artery is a nondominant vessel that provides 2 OM branches. This system has luminal irregularities. 4. Right coronary artery: The RCA is a large dominant vessel. There is diffuse 10-30% stenosis throughout the proximal and mid vessel. The PDA is a small caliber vessel with no angiographic high-grade stenosis. The right posterolateral branch has luminal irregularities. 5. Left ventricle: A. The aortic valve was not crossed 6. Opening AO pressure 112/72 and closing AO pressure 128/61 Description of Procedure: Informed consent signed and placed in the chart. Patient transferred to geotechnical laboratory technician room. Prepped and draped in usual sterile fashion. 2% lidocaine injected subcutaneously in right wrist area. 22-gauge venipuncture catheter used to access the right radial artery with the Seldinger technique. 6-FR slender sheath placed in right radial artery. Nitroglycerin 200mcg, Verapamil 2.5mg, and Heparin 5000U was given intraarterial through the sheath. J wire advanced under fluoroscopy 5F TIG diagnostic catheter engaged Left Main Coronary Artery. 5F TIG diagnostic catheter engaged Right Coronary Artery. Multiple orthogonal angiogram obtained and reviewed in decision was made to proceed with PTCA of the diagonal branch followed by intravascular ultrasound imaging of the mid LAD and into the ostial left main coronary artery. Procedure Description for PCI: Heparin was used for anticoagulation (ACT maintained above 250) Patient loaded with heparin at 70 units/kg. 6F EBU3.5 guide catheter was used to engage the LMCA. 0.014 Runthrough coronary wire was passed in to the superior branch of the first diagonal branch. The lesion was treated with a 2.0 x 15mm balloon inflated to 8atm. There was spasm distal to the stenosis in the superior branch for which intracoronary NTG 300mcg was administered with resolution of spasm. The stenosis in the mid diagonal was reduced to 20-30%. This was deemed acceptable given that the vessel size distal to the stenosis is no more than 1.5 mm in diameter. The Runthrough coronary wire was then pulled back and renegotiated into the distal LAD. The intravascular ultrasound catheter was then advanced into the mid LAD and images were obtained on manual pullback. All intracoronary equipment was then removed under fluoroscopy. Follow-up angiograms showed an acceptable results and no immediate angiographic complications identified. Intravascular ultrasound images review and minimal luminal area of the ostial left main, mid body of the left main, and mid LAD were calculated. The chest discomfort and arm discomfort that brought the patient to the cardiac catheterization lab has now resolved however was replaced by some left-sided substernal chest discomfort of a different nature that is mild. Most likely this represents resolution of symptoms from the ELIS 2 flow in the diagonal branch with onset of symptoms from balloon angioplasty of the vessel. With the patient's current clinical presentation GA, decision was made to medically manage the mid LAD lesion at this time in light of moderate ostial left main coronary artery disease. Patient was loaded with Plavix 300 mg in the recovery area. Pre-procedure - ELIS 2 flow Post-procedure - ELIS 3 flow Hemostasis was achieved with TR band. Assessment: Successful POBA of D1 with faith of ELIS 3 flow and reduction of stenosis from 99% to 20-30%. Post Operative Condition: Stable No significant blood loss Disposition: Floor Plan: Monitor patient overnight for further symptoms. Continue ASA 81mg PO indefinitely. Continue plavix 75mg PO daily for a minimum of 1 year. Will need outpatient PCSK9i given her statin intolerance. Can consolidate her metoprolol tartrate to metoprolol succinate 25mg PO daily. Obtain a transthoracic echocardiogram. Travis Velez Interventional Cardiology Imaging Radiologist's impression: ITS Impressions Chest X-Ray 01/18/25 06:48 IMPRESSION: No acute cardiopulmonary pathology. Discharge Plan Discharge Attending physician on discharge: Rome Mittal Consulting providers: Marc Mohr Discharging Clinician: Rome Mittal Anticipated Discharge Date/Time: 01/20/25 13:04 Patient Disposition: Home Activity: as tolerated Diet: heart healthy Discharge Instructions: [facility] [address] [place] [address] DISCHARGE INSTRUCTIONS - POST RADIAL CATH Activity 1. No driving for 24 hours. 2. No lifting more than 5 lb with affected arm for 1 week. 3. May shower ( tomorrow) but no excessive soaking of affected hand/wrist (such as washing dishes), swimming pool or hot tub for 5 days. Wound Care 1. May remove arm board in the morning. 2. May remove gauze dressing in the morning and put Band-Aid over affected radial site. Keep site covered for 3 days. 3. Observe for redness, drainage, swelling or bleeding. Medications DO NOT STOP YOUR MEDICATIONS ONLY YOUR CHANNEL LAYER CAN STOP THE FOLLOWING MEDICATIONS - PLEASE CALL THE OFFICE WITH QUESTIONS. *Aspirin *Clopidogrel (Plavix) * Metoprolol Important Reminders 1. Keep your stent card in your wallet at all times 2. Follow a heart healthy diet paying extra attention to cholesterol and fats. 3. Stay hydrated. 4. If you have chest pain unrelieved by rest or nitroglycerin (if prescribed) call 911 immediately. 5. If you miss one dose of Brilinta (if prescribed) take a tablet at the next time due. If you miss 2 doses take a tablet when you remember and resume at the next time due. *For any other questions please call the office at [phone]. Office hours are 8AM 4:30PM Sunday through Sunday. Patient Instructions: Antibiotic Form Patient Language: Irish Stand Alone Forms: General Discharge Information Follow-up/Referrals: Marc Mohr MD [Physician] - 2 Weeks Fernando Campbell MD [Primary Care Provider] - 1 Week Discharge Medications: New aspirin 81 mg Tablet,Delayed Release (Dr/Ec) 81 mg PO QAM Qty: 30 0RF metoprolol succinate [Toprol XL] 25 mg Tablet Extended Release 24 Hr 25 mg PO QAM Qty: 30 0RF clopidogrel 75 mg Tablet 75 mg PO QAM Qty: 30 0RF Continued Trulicity 0.75 mg/0.5 mL pen injector 0.75 mg subcut WEEKLY Qty: 2 11RF Date of admission: 01/18/25 09:41 Primary Care Provider: Fernando Campbell Admitting Provider: Orly Nash Attending physician on admission: Orly Nash Condition: Stable
== END 2025-01-20 15:22 | disposition home or self-care (01) | DRG 251 ==
LOC: ANHED 23:44 → ANHIMU 01-18 01:50
PROVIDERS: Internal Medicine; Admitting Provider General Practice; Emergency Provider Student in an Organized Health Care Education/Training Program; PCP Family Medicine; Visit Provider Internal Medicine
PROC: 02703ZZ Dilation of Coronary Artery, One Artery, Percutaneous Approach (ICD-10-PCS; CPT 93454; principal; 2025-01-19 09:00)
PROC: 02703ZZ Dilation of Coronary Artery, One Artery, Percutaneous Approach (ICD-10-PCS; CPT 92920; 2025-01-19 09:00)
PROC: 02703ZZ Dilation of Coronary Artery, One Artery, Percutaneous Approach (ICD-10-PCS; 2025-01-19 09:00)
DX: I21.4 Non-ST elevation (NSTEMI) myocardial infarction (principal); E11.65 Type 2 diabetes mellitus with hyperglycemia; D72.829 Elevated white blood cell count, unspecified; K57.90 Diverticulosis of intestine, part unspecified, without perforation or abscess without bleeding; E78.2 Mixed hyperlipidemia; K58.1 Irritable bowel syndrome with constipation; M16.0 Bilateral primary osteoarthritis of hip; G47.33 Obstructive sleep apnea (adult) (pediatric); F17.290 Nicotine dependence, other tobacco product, uncomplicated; Z86.16 Personal history of COVID-19; Z90.49 Acquired absence of other specified parts of digestive tract
CPT/HCPCS: 36415; 71046; 80048; 80053; 80061; 81003; 82010; 82948; 83036; 83690; 83735; 84145; 84484; 85025; 85610; 85730; 87637; 87651; 92920; 92978; 93005; 93454; 96361; 96374; 96375; 96376; 99285; A9270; C1725; C1753; C1769; C1887; C1894; C8929; G0378; J1644; J1815; J2003; J2250; J2270; J2305; J2405; J3010; J7030; J7040; Q9957